=== PATIENT | female | born 1945 | race Caucasian/White ===

== ENCOUNTER 2019-05-08 02:13 | Inpatient (IN) ==
[2019-05-08] MEDS ORDERED: MoRPHine SULFATE 4 MG/ML 1 ML CARP\\VIAL IV STA ×2 (02:20→04:16)
[2019-05-08] MEDS ORDERED: SODIUM CHLORIDE 0.9% 1000ML 1,000 ML IV SCH (02:30)
[2019-05-08] MEDS: ONDANSETRON INJ 2 MG/ML 2 ML VIAL IV STA ×2 (02:35→02:49)
[2019-05-08 02:36] LABS: Basophils # (auto) 0.06 K/uL (0-0.2); Basophils % (auto) 0.6 %; Eosinophils # (auto) 0.23 K/uL (0-0.5); Eosinophils % (auto) 2.2 %; Hematocrit (blood only) 44.1 % (37-47); Hemoglobin 14.6 g/dL (12.0-16.0); Immature Granulocytes # (auto) 0.02 K/uL (0.00-0.02); Immature Granulocytes % (auto) 0.2 %; Lymphocytes # (auto) 1.48 K/uL (1.2-3.4); Mean Corpuscular Hemoglobin 32.2 pg (25-34); Mean Corpuscular Hgb Conc 33.1 g/dL (32-36); Mean Corpuscular Volume 97.4 fL (80-100); Monocytes # (auto) 0.78 K/uL (0.11-0.59); Monocytes % (auto) 7.4 %; Neutrophils # (auto) 8.03 K/uL (1.4-6.5); Neutrophils % (auto) 75.6 %; Platelet Count 315 K/uL (130-400); RDW Coefficient of Variation 13.7 % (11.5-14.5); RDW Standard Deviation 48.5 fL (36.4-46.3); Red Blood Count 4.53 M/uL (4.2-5.4)
[2019-05-08 02:43] LABS: iSTAT Creatinine 0.8 mg/dl (0.6-1.3); iSTAT Hemoglobin 14.6 g/dl (12.0-16.0); iSTAT Ionized Calcium 1.3 mmol/l (1.12-1.32); iSTAT Potassium 3.6 mEq/L (3.3-5.0)
[2019-05-08 02:58] LABS: Albumin Level 3.8 gm/dl (3.4-5.0); BUN Creatinine Ratio 16.4 (10-20); Creatinine Clr Calc Pharmacy 43.2 ml/min; Est GFR (African American) 64.6; Est GFR (Non-African American) 55.7; Potassium 3.7 mmol/L (3.5-5.1)
[2019-05-08 03:00] LABS: Albumin Globulin Ratio 0.9 (0.9-2); Bilirubin,Total 0.4 mg/dl (0.2-1); Globulin 4.1 gm/dl (2.5-4.0); Total Protein 7.9 gm/dl (6.4-8.2)
[2019-05-08] MEDS ORDERED: IOVERSOL 100ml IV PRN (03:06)
--- NOTE | 2019-05-08 03:12 | Emergency Department Note ---
Entered by Brinda Chase acting as a scribe for Elmer Beaver DO History of Present Illness General Chief complaint: Abdominal Pain Stated complaint: ABDOMINAL PAIN History of Present Illness Provider complaint: abdominal pain Onset (ago): hour(s) 7 Location: abdomen Severity: similar to prior episodes Quality: + other (abdominal pain) Associated symptoms: + nausea/vomiting The patient, who is a 73 year old female with a medical history of GI bleeding, kidney stones, and a colectomy, who presents to the Emergency Room with complaints of abdominal pain that started at 1900 last night. The patient states that around 0145 the patient started vomiting. The patient explains that throughout the day she has been excreting clear liquid with some mucous. The patient expresses that she had a similar episode two years ago that resulted into severe ulcerative colitis. The patient states that she had an appendectomy but she still has her gallbladder. Patient notes that the pain started around 7 PM and gradually progressed since then. Pain has been constant. Patient has not had any outputs since this afternoon in the ostomy. Previous surgery was done at [facility]. Home Medications Home Medications Medication Instructions Recorded Confirmed Type aspirin 81 mg tablet,delayed 81 mg PO DAILY 04/19/19 05/08/19 History release omeprazole magnesium 20 mg 20 mg PO DAILY 04/19/19 05/08/19 History tablet,delayed release potassium chloride 10 mEq 10 meq PO 3XWK 04/19/19 05/08/19 History capsule,extended release Arthritis Extra Strength 2 tabs PO BID 05/08/19 05/08/19 History furosemide [Lasix] 20 mg PO DAILY 05/08/19 05/08/19 History prednisone 5 mg PO DAILY 05/08/19 05/08/19 History rosuvastatin 5 mg PO DAILY 05/08/19 05/08/19 History turmeric root extract 1,053 mg PO BID 05/08/19 05/08/19 History Allergies Allergy/AdvReac Type Severity Reaction Status Date / Time Penicillins Allergy Severe Hives Verified 05/08/19 02:44 Cipro Allergy Intermediate SEVERE RASH Verified 01/24/14 12:55 ciprofloxacin Allergy Intermediate SEVERE RASH Verified 05/08/19 02:44 adhesive Allergy Mild Rash Verified 05/08/19 02:44 ondansetron [From Zofran] Allergy Mild Rash Verified 05/08/19 02:45 codeine Allergy Unknown n/v Verified 05/08/19 02:44 pinpoint pupils infliximab Allergy Unknown Unknown Verified 05/08/19 02:44 Quinolones Allergy Unknown Unknown Verified 05/08/19 02:44 tramadol Allergy Unknown bradycardia Verified 05/08/19 02:44 vancomycin Allergy Unknown Maris Verified 04/29/19 12:41 syndrome NONSTEROIDAL Allergy Unknown NAPROXEN Uncoded 04/19/19 12:54 Past Med/Surg History Medical History Herpes zoster Missed Surgical History H/O ileostomy H/O oral surgery H/O ventral hernia repair History of colon surgery S/P appendectomy S/P colonoscopy S/P dilation and curettage S/P tonsillectomy and adenoidectomy S/P tubal ligation Family History Grandmother (Paternal) Breast cancer Grandmother (Maternal) Colorectal cancer Father Rheumatic heart disease Mother Thyroid cancer Social History Feels Safe at Home: Yes Smoking Status: Former smoker Review of Systems See HPI for pertinent positives & negatives. and A total of 10 systems reviewed and were otherwise negative Physical Exam Vital Signs Vital Signs - 24 hr 05/08/19 02:21 05/08/19 02:23 05/08/19 03:14 Temperature 36.6 C Temperature Source Oral Pulse Rate 71 Pulse Rate [Apical] 70 Respiratory Rate 20 18 Respiratory Effort / Characteristics Non-Labored Spontaneous Respiratory Depth Normal Normal Respiratory Pattern Regular Blood Pressure 177/97 H Blood Pressure [Right Arm] 154/93 H Blood Pressure Mean 123 Blood Pressure Mean [Right Arm] 113 Blood Pressure Position Sitting Pulse Oximetry 99 99 99 Oxygen Delivery Method Room Air Room Air Oxygen Flow Rate Sepsis Recent Fever Within 48 Hours No Sepsis New/Unexplained Change in Mental Status No Sepsis Action Taken by Nursing No Action Required Fraction of Inspired Oxygen - Titration Pulse Oximetry Post Tiitration 05/08/19 04:32 05/08/19 06:00 Temperature Temperature Source Pulse Rate Pulse Rate [Apical] 71 71 Respiratory Rate 18 18 Respiratory Effort / Characteristics Respiratory Depth Normal Normal Respiratory Pattern Blood Pressure Blood Pressure [Right Arm] 141/86 H 155/85 H Blood Pressure Mean Blood Pressure Mean [Right Arm] 104 108 Blood Pressure Position Pulse Oximetry 88 L 100 Oxygen Delivery Method Nasal Cannula Nasal Cannula Oxygen Flow Rate 2 2 Sepsis Recent Fever Within 48 Hours Sepsis New/Unexplained Change in Mental Status Sepsis Action Taken by Nursing Fraction of Inspired Oxygen - Titration 2 Pulse Oximetry Post Tiitration 94 GENERAL: sitting in bed, uncomfortable, teary, moderate distress EYE EXAM: normal conjunctiva OROPHARYNX: no exudate, no erythema, lips, buccal mucosa, and tongue normal and mucous membranes are moist NECK: supple, no nuchal rigidity, no adenopathy, non-tender LUNGS: Clear to auscultation. Normal chest wall mechanics HEART: no murmurs, S1 normal and S2 normal ABDOMEN: abdomen distended and firm with ostomy in right lower quadrant, clear size stool in ostomy, tender in right lower quadrant, decreased bowel sounds SKIN: no rashes and no bruising UPPER EXTREMITIES: upper extremities are grossly normal. LOWER EXTREMITIES: No pitting edema. NEURO EXAM: Normal sensorium, cranial nerves II-XII grossly intact, normal speech, no gross weakness of arms, no gross weakness of legs. Course Course ED COURSE: Vital signs were reviewed and showed hypertensive situationally. The patients medical record was reviewed The above diagnostic studies were performed and reviewed. ED treatments and interventions as stated above. 0215: The patient was evaluated in room B2. A complete history and physical examination was performed. 0438: I reviewed the patient's case with Dr. Teixeira, General Surgery. He will evaluate the patient for further management. 0503: I reassessed the patient who was doing well and sleeping. 0558: I reassessed the patient and updated her on the plan of action. The patient expresses that the wanted to go to [place]. 0610: I talked to [facility] and [facility] and was informed that they do not have any availability to admit patient. 0640: Dr. Teixeira has agreed to take the patient to the OR. He states that an NG tube is not needed at this time. Based on the patients age, coexisting illnesses, exam and lab findings the decision to treat as an inpatient was made. The patient remained stable while under my care. The patient will be evaluated for further management. Consultations Consultation #1: I reviewed the patient's case with Dr. Teixeira, General Surgery. He will evaluate the patient for further management. Time: 04:38 Consultation #2: Dr. Teixeira has agreed to take the patient to the OR. He states that an NG tube is not needed at this time. Time: 06:40 Administered Medications Ioversol (Optiray 320 100ml) 100 ml IV ONCE PRN PRN Reason: Interaction Checking Stop: 05/12/19 03:05 Last Admin: 05/08/19 03:06 Dose: 92 ml Documented by: [id number] Discontinued Medications Sodium Chloride (Nss 1000ml) 1,000 mls @ 999 mls/hr IV .Q1H1M JERE Stop: 05/08/19 03:30 Last Infusion: 05/08/19 03:44 Dose: 0 mls/hr Documented by: [id number] Admin: 05/08/19 02:35 Dose: 999 mls/hr Documented by: [id number] Metoclopramide HCl (Reglan) 10 mg IV NOW STA Stop: 05/08/19 04:11 Last Admin: 05/08/19 04:13 Dose: 10 mg Documented by: [id number] Morphine Sulfate (Morphine Sulfate) 4 mg IV NOW STA Stop: 05/08/19 02:21 Last Admin: 05/08/19 02:35 Dose: 4 mg Documented by: [id number] Morphine Sulfate (Morphine Sulfate) 4 mg IV NOW STA Stop: 05/08/19 04:17 Last Admin: 05/08/19 04:20 Dose: 4 mg Documented by: [id number] Ondansetron HCl (Zofran) 4 mg IV NOW STA Stop: 05/08/19 02:21 Last Admin: 05/08/19 02:49 Dose: Not Given Documented by: [id number] Critical Care Time Critical Care Time: Yes Total Critical Care Time: 31 I have personally spent 31 minutes of critical care time in the direct management of this patient. This includes bedside care, interpretation of diagnostic studies, and testing, discussion with consultants, patient, and family members, and other required patient management activities. This 31 minutes is in excess of all separately billable procedures. Medical Decision Making Differential Diagnosis Differential diagnoses includes but is not limited to gastritis, peptic ulcer disease, GERD, gallbladder disease, pancreatitis, small bowel obstruction, acute coronary syndrome, pericarditis, ischemic bowel, irritable bowel disease, irritable bowel syndrome, appendicitis, diverticulitis, malignancy, hernia, urinary tract infection, torsion, /ectopic (if female), perforation, trauma, infectious. Medical Records Attestation: I reviewed the patient's medical records. Home Medications Current Medication List: was personally reviewed by me Laboratory Data Result diagrams: 05/08/19 02:25 05/08/19 02:25 Lab Results 05/08/19 05/08/19 05/08/19 Range/Units 02:25 02:25 02:27 WBC 10.60 (4.8-10.8) K/uL RBC 4.53 (4.2-5.4) M/uL Hgb 14.6 (12.0-16.0) g/dL POC Hgb 14.6 (12.0-16.0) g/dl Hct 44.1 (37-47) % POC Hct 43 (37-47) % MCV 97.4 (80-100) fL MCH 32.2 (25-34) pg MCHC 33.1 (32-36) g/dL RDW Std Deviation 48.5 H (36.4-46.3) fL RDW Coeff of Deandre 13.7 (11.5-14.5) % Plt Count 315 (130-400) K/uL MPV 10.0 (7.4-10.4) fL Immature Gran % (Auto) 0.2 % Neut % (Auto) 75.6 % Lymph % (Auto) 14.0 % King % (Auto) 7.4 % Eos % (Auto) 2.2 % Baso % (Auto) 0.6 % Immature Gran # (Auto) 0.02 (0.00-0.02) K/uL Neut # (Auto) 8.03 H (1.4-6.5) K/uL Lymph # (Auto) 1.48 (1.2-3.4) K/uL King # (Auto) 0.78 H (0.11-0.59) K/uL Eos # (Auto) 0.23 (0-0.5) K/uL Baso # (Auto) 0.06 (0-0.2) K/uL POC Sodium 141 (135-144) mEq/L Sodium 141 (136-145) mmol/L POC Potassium 3.6 (3.3-5.0) mEq/L Potassium 3.7 (3.5-5.1) mmol/L POC Chloride 103 (101-112) mEq/L Chloride 105 (98-107) mmol/L Carbon Dioxide 31 (21-32) mmol/L POC Total CO2 27 (24-31) mEq/l Anion Gap 5.0 (3-11) POC Anion Gap 15.0 L (16-25) mmol/L POC BUN 17 (7-18) mg/dl BUN 16 (7-18) mg/dl Creatinine 0.99 (0.6-1.2) mg/dl POC Creatinine 0.8 (0.6-1.3) mg/dl Est Cr Clr Drug Dosing 43.2 ml/min Est GFR ( Amer) 64.6 Est GFR (Non-Af Amer) 55.7 BUN/Creatinine Ratio 16.4 (10-20) Glucose 92 (70-99) mg/dl POC Glucose (other) 94 (70-99) mg/dl Calcium 10.0 (8.5-10.1) mg/dl POC Ioniz Calcium Ryan 1.30 (1.12-1.32) mmol/l Total Bilirubin 0.4 (0.2-1) mg/dl AST 21 (15-37) U/L ALT 23 (12-78) U/L Alkaline Phosphatase 57 (45-117) U/L Total Protein 7.9 (6.4-8.2) gm/dl Albumin 3.8 (3.4-5.0) gm/dl Globulin 4.1 H (2.5-4.0) gm/dl Albumin/Globulin Ratio 0.9 (0.9-2) Lipase 177 (73-393) U/L Imaging Data Radiologist's Impression: Radiology results as stated below per my review and the radiologist's interpretation: CT ABDOMEN & PELVIS With Contrast: Status post colectomy with a right lower quadrant ileostomy. There is a high- grade small bowel obstruction the transition point of which is within the parastomal hernia which contains multiple dilated loops of small bowel. These bowels loops are at risk for strangulation. No pneumatosis, portal venous gas, or free air at this time. Radiologist: Pawan Reed MD Study ready at 03:12 and initial results transmitted at 04:20 Blood Pressure Blood Pressure Findings: Elevated blood pressure Blood Pressure Disposition: further management by hospitalist ASHLEY Narrative Patient is a 73-year-old female who presents the ER for severe right-sided abdominal pain. This started around 7 PM and the vomiting started around 2 PM. She has a history of bowel resection with an ostomy secondary to severe UC. Previous appendectomy as well. Surgery was done at [facility]. IV was established blood work was obtained. Patient was hypertensive with systolics in the 170s. Labs show no significant leukocytosis or anemia. BMP along with LFTs bilirubin and lipase was unremarkable. I patient was given IV fluids, IV Zofran and IV narcotics. She had no vomiting while in the ER. CT abdomen pelvis shows high-grade small bowel obstruction in the parastomal. General surgery was consulted and evaluated the patient at bedside. Attempted to transfer to her [facility] and then [facility] and these facilities are both completely fill. At this time the decision was made to take the patient to the OR to reduce the hernia and bowel obstruction. Patient rested comfortably in the ER. Held on NG per GEN surg. Patient was updated throughout the course in the ER and admitted and taken to the ER. Impression & Plan SBO (small bowel obstruction), Vomiting, Abdominal pain Discharge Plan Visit Data Chief Complaint: Abdominal Pain Stated Complaint: ABDOMINAL PAIN ED Provider: Elmer Beaver Discharge Problem: SBO (small bowel obstruction), Vomiting, Abdominal pain Forms Stand Alone Forms: Call Back Authorization, [facility] Prescriptions Prescriptions: No Action aspirin [Adult Low Dose Aspirin] 81 mg tablet,delayed release (DR/EC) 81 mg PO DAILY RF: 0 potassium chloride 10 mEq capsule, extended release 10 meq PO 3XWK RF: 0 Prilosec OTC 20 mg tablet,delayed release (DR/EC) 20 mg PO DAILY RF: 0 furosemide [Lasix] 20 mg Tablet 20 mg PO DAILY RF: 0 prednisone 5 mg Tablet 5 mg PO DAILY RF: 0 rosuvastatin 5 mg Tablet 5 mg PO DAILY RF: 0 turmeric root extract 1,053 mg Tablet 1,053 mg PO BID RF: 0 Arthritis Extra Strength 2 tabs PO BID RF: 0 Discharge Problem: Vomiting Qualifiers: Vomiting type: unspecified Vomiting Intractability: unspecified Nausea presence: unspecified Qualified Code(s): R11.10 - Vomiting, unspecified Abdominal pain Qualifiers: Abdominal location: left lower quadrant Qualified Code(s): R10.32 - Left lower quadrant pain The scribe's documentation has been prepared under my direction and personally reviewed by me in its entirety. I confirm that the note above accurately reflects all work, treatment, procedures, and medical decision making performed by me.
[2019-05-08] MEDS ORDERED: METOCLOPRAMIDE HCL INJ 5 MG/ML 2 ML VIAL IV STA (04:10)
[2019-05-08] MEDS ORDERED: CLINDAMYCIN 900 MG in DEXTROSE 5% 50 ML IV SCH (06:00)
--- NOTE | 2019-05-08 06:41 | CT Scan Report ---
CT abd pelvis IV con only CLINICAL HISTORY: Abdominal pain. History of small bowel obstruction. COMPARISON STUDY: December 2007 TECHNIQUE: The patient was scanned in a dynamic helical fashion during intravenous administration of 92 cc of Optiray 320. A dose lowering technique was utilized adhering to the principles of ALARA. CT DOSE: 555.82 mGy.cm FINDINGS: Lower chest: The heart is normal in size and configuration, without pericardial effusion. The lung ba ses and pleural spaces are clear. Liver: There is a 15 mm left lobe hepatic cyst. There is a second 8 mm left lobe hypodensity likely r epresenting an additional cyst. Gallbladder: Suspected cholelithiasis Spleen: Normal in size and attenuation. Pancreas: Unremarkable. Adrenal glands: Unremarkable. Kidneys: There is symmetric renal cortical enhancement. The kidneys are normal in size without hydron ephrosis. Bowel: There are postsurgical changes of a subtotal colectomy. There is a right-sided ileostomy with a parastomal hernia. There are dilated fluid-filled bowel loops. There is a small bowel feces sign. T here is mild edema surrounding the parastomal hernia, and there is trace fluid within the parastomal hernia. There appears to be a transition zone at the neck of the ostomy. Peritoneum: There is no free air. There is trace fluid within the patient's parastomal hernia Vasculature: The abdominal aorta is normal in course and caliber. Adenopathy: None. Pelvic viscera: The bladder, and pelvic viscera are unremarkable. Skeletal structures: No destructive osseous lesions are seen. IMPRESSION: 1. Postsurgical changes are prior subtotal colectomy 2. CT findings suggestive of a distal small bowel obstruction with a transition zone at the level of a right lower quadrant ileostomy with a parastomal hernia. There is minor bowel wall thickening of th e loops within the hernia sac and there is trace adjacent peritoneal fluid. Electronically signed by: German Lee M.D. 05/08/2019 6:40 AM
--- NOTE | 2019-05-08 06:50 | History & Physical Report ---
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 She requested tertiary care center and we contacted [facility] [place] but there is no bed availability at either facility. We are going to proceed with exploratory laparotomy with reduction and repair of parastomal hernia. I discussed with her the possible complications and answered her questions. She has signed a consent form. History of Present Illness Chief Complaint: Parastomal abdominal pain with nausea and vomiting Primary Care Provider: Derrick Ruiz DO This is a 73-year-old female who is status post total abdominal colectomy in 2005 for severe ulcerative colitis and is also status post exploratory laparotomy with lysis of adhesions for a bowel obstruction in 2007 who developed abdominal discomfort last night at 7 PM. The patient states that her ileostomy had not been putting out much during the day but that would occasionally happen depending on what she ate. She then developed discomfort around the peristomal region and had multiple episodes of vomiting. She presented to the emergency room. She was fairly comfortable upon my arrival but that was there receiving IV analgesia. She had a colonoscopy last year for surveillance of her rectal pouch and stated that there were no issues identified. She stated that she would get sweats since the pain started but does not think she had fever. She has had no difficulty passing her urine. Allergies Allergy/AdvReac Type Severity Reaction Status Date / Time Penicillins Allergy Severe Hives Verified 05/08/19 02:44 Cipro Allergy Intermediate SEVERE RASH Verified 01/24/14 12:55 ciprofloxacin Allergy Intermediate SEVERE RASH Verified 05/08/19 02:44 adhesive Allergy Mild Rash Verified 05/08/19 02:44 ondansetron [From Zofran] Allergy Mild Rash Verified 05/08/19 02:45 codeine Allergy Unknown n/v Verified 05/08/19 02:44 pinpoint pupils infliximab Allergy Unknown Unknown Verified 05/08/19 02:44 Quinolones Allergy Unknown Unknown Verified 05/08/19 02:44 tramadol Allergy Unknown bradycardia Verified 05/08/19 02:44 vancomycin Allergy Unknown Maris Verified 04/29/19 12:41 syndrome NONSTEROIDAL Allergy Unknown NAPROXEN Uncoded 04/19/19 12:54 Home Medications Home Medications Medication Instructions Recorded Confirmed Type aspirin 81 mg tablet,delayed 81 mg PO DAILY 04/19/19 05/08/19 History release omeprazole magnesium 20 mg 20 mg PO DAILY 04/19/19 05/08/19 History tablet,delayed release potassium chloride 10 mEq 10 meq PO 3XWK 04/19/19 05/08/19 History capsule,extended release Arthritis Extra Strength 2 tabs PO BID 05/08/19 05/08/19 History furosemide [Lasix] 20 mg PO DAILY 05/08/19 05/08/19 History prednisone 5 mg PO DAILY 05/08/19 05/08/19 History rosuvastatin 5 mg PO DAILY 05/08/19 05/08/19 History turmeric root extract 1,053 mg PO BID 05/08/19 05/08/19 History Past Med/Surg History Medical History Herpes zoster Missed Surgical History H/O ileostomy H/O oral surgery H/O ventral hernia repair History of colon surgery S/P appendectomy S/P colonoscopy S/P dilation and curettage S/P tonsillectomy and adenoidectomy S/P tubal ligation Family History Grandmother (Paternal) Breast cancer Grandmother (Maternal) Colorectal cancer Father Rheumatic heart disease Mother Thyroid cancer Social History Feels Safe at Home: Yes Smoking Status: Former smoker Review of Systems Review of Systems: All systems reviewed & are unremarkable except as noted in HPI & below Physical Exam Constitutional: no acute distress Neck: trachea midline Respiratory: normal respiratory effort, lungs clear to auscultation Cardiovascular: Rate/Rhythm: regular rate and regular rhythm Gastrointestinal (Abdomen): Inspection/Auscultation: abdomen not distended Percussion/Palpation: + abdomen tender (In the area of parastomal hernia) and abdomen soft Has parastomal hernia that cannot be reduced with tenderness Skin: no rashes, warm and dry Lymphatic: no cervical lymphadenopathy Results & Data Vital Signs (Past 12 Hours) Vital Signs Temp Pulse Pulse Resp BP BP Pulse Ox 05/08/19 06:00 71 18 155/85 H 100 05/08/19 04:32 71 18 141/86 H 88 L 05/08/19 03:14 70 18 154/93 H 99 05/08/19 02:23 36.6 C 71 20 177/97 H 99 05/08/19 02:21 99 Laboratory Results 05/08/19 05/08/19 05/08/19 Range/Units 02:27 02:25 02:25 WBC 10.60 (4.8-10.8) K/uL RBC 4.53 (4.2-5.4) M/uL Hgb 14.6 (12.0-16.0) g/dL POC Hgb 14.6 (12.0-16.0) g/dl Hct 44.1 (37-47) % POC Hct 43 (37-47) % MCV 97.4 (80-100) fL MCH 32.2 (25-34) pg MCHC 33.1 (32-36) g/dL RDW Std Deviation 48.5 H (36.4-46.3) fL RDW Coeff of Deandre 13.7 (11.5-14.5) % Plt Count 315 (130-400) K/uL MPV 10.0 (7.4-10.4) fL Immature Gran % (Auto) 0.2 % Neut % (Auto) 75.6 % Lymph % (Auto) 14.0 % Jennings % (Auto) 7.4 % Eos % (Auto) 2.2 % Baso % (Auto) 0.6 % Immature Gran # (Auto) 0.02 (0.00-0.02) K/uL Neut # (Auto) 8.03 H (1.4-6.5) K/uL Lymph # (Auto) 1.48 (1.2-3.4) K/uL Jennings # (Auto) 0.78 H (0.11-0.59) K/uL Eos # (Auto) 0.23 (0-0.5) K/uL Baso # (Auto) 0.06 (0-0.2) K/uL POC Sodium 141 (135-144) mEq/L Sodium 141 (136-145) mmol/L POC Potassium 3.6 (3.3-5.0) mEq/L Potassium 3.7 (3.5-5.1) mmol/L POC Chloride 103 (101-112) mEq/L Chloride 105 (98-107) mmol/L Carbon Dioxide 31 (21-32) mmol/L POC Total CO2 27 (24-31) mEq/l Anion Gap 5.0 (3-11) POC Anion Gap 15.0 L (16-25) mmol/L POC BUN 17 (7-18) mg/dl BUN 16 (7-18) mg/dl Creatinine 0.99 (0.6-1.2) mg/dl POC Creatinine 0.8 (0.6-1.3) mg/dl Est Cr Clr Drug Dosing 43.2 ml/min Est GFR ( Amer) 64.6 Est GFR (Non-Af Amer) 55.7 BUN/Creatinine Ratio 16.4 (10-20) Glucose 92 (70-99) mg/dl POC Glucose (other) 94 (70-99) mg/dl Calcium 10.0 (8.5-10.1) mg/dl POC Ioniz Calcium Ryan 1.30 (1.12-1.32) mmol/l Total Bilirubin 0.4 (0.2-1) mg/dl AST 21 (15-37) U/L ALT 23 (12-78) U/L Alkaline Phosphatase 57 (45-117) U/L Total Protein 7.9 (6.4-8.2) gm/dl Albumin 3.8 (3.4-5.0) gm/dl Globulin 4.1 H (2.5-4.0) gm/dl Albumin/Globulin Ratio 0.9 (0.9-2) Lipase 177 (73-393) U/L Diagnostic Findings CT scan of the abdomen and pelvis demonstrates loops of dilated small bowel in the parastomal hernia as the site of high-grade obstruction
[2019-05-08] MEDS ORDERED: PROMETHAZINE HCL 12.5 MG in SODIUM CHLORIDE 0.9% 50 ML IV STA (07:09)
[2019-05-08] MEDS ORDERED: PROMETHAZINE 12.5 MG/50.5 ML NSS IV ONE (07:16)
[2019-05-08] MEDS ORDERED: fentaNYL citrate 100 MCG/2 ML VIAL ONE ×2 (07:31→11:16)
[2019-05-08] MEDS ORDERED: PROPOFOL IV EMULSION 10 MG/ML 20 ML VIAL IV ONE (07:31)
[2019-05-08] MEDS ORDERED: GLYCOPYRROLATE 0.2 MG/ML VIAL ONE (07:31)
[2019-05-08] MEDS ORDERED: MIDAZOLAM HCL 1 MG/ML 2ML VIAL ONE (07:31)
[2019-05-08] MEDS ORDERED: DEXAMETHASONE SOD INJ 4 MG/ML VIAL ONE (07:31)
[2019-05-08] MEDS ORDERED: ONDANSETRON INJ 2 MG/ML 2 ML VIAL ONE (07:31)
[2019-05-08] MEDS ORDERED: LIDOCAINE HCL 2% 2 ML VIAL/AMP(20MG/ML) INFIL ONE (07:31)
[2019-05-08] MEDS ORDERED: NEOSTIGMINE METHYLSULFATE 5 MG/5 ML SYR ONE (07:31)
[2019-05-08] MEDS ORDERED: ATROPINE SULFATE 0.1 MG/ML 10ML SYR IV PRN (07:57)
[2019-05-08] MEDS ORDERED: fentaNYL citrate 100 MCG/2 ML VIAL IV PRN (07:57)
[2019-05-08] MEDS ORDERED: ePHEDrine sulfate 50 MG/ML AMP IV PRN (07:57)
--- NOTE | 2019-05-08 08:08 | Anesthesiology Consultation ---
Date of Service May 08, 2019 Assessment & Plan (1) Polymyalgia rheumatica: Chart Review Chart Review: Acceptable Risk for Surgery Consults Requested none ASA [id number] Proposed Anesthesia Anesthesia Type: General Risk / Benefits Reviewed With: PT / POA / Parent / Guardian, Accepts Plan and Informed Consent Obtained History Surgery Operation Date: 05/08/19 11:10 Proposed Procedures p Reduction and Repair Incarcerated Parastomal Hernia - Frantz Teixeira MD Height/Weight Height: 5 ft Weight: 71.1 kg Allergies Allergy/AdvReac Type Severity Reaction Status Date / Time Penicillins Allergy Severe Hives Verified 05/08/19 02:44 Cipro Allergy Intermediate SEVERE RASH Verified 01/24/14 12:55 ciprofloxacin Allergy Intermediate SEVERE RASH Verified 05/08/19 02:44 adhesive Allergy Mild Rash Verified 05/08/19 02:44 ondansetron [From Zofran] Allergy Mild Rash Verified 05/08/19 02:45 codeine Allergy Unknown n/v Verified 05/08/19 02:44 pinpoint pupils infliximab Allergy Unknown Unknown Verified 05/08/19 02:44 Quinolones Allergy Unknown Unknown Verified 05/08/19 02:44 tramadol Allergy Unknown bradycardia Verified 05/08/19 02:44 vancomycin Allergy Unknown Maris Verified 04/29/19 12:41 syndrome NONSTEROIDAL Allergy Unknown NAPROXEN Uncoded 04/19/19 12:54 Medications Home Medications Medication Instructions Recorded Confirmed Last Taken aspirin 81 mg tablet,delayed 81 mg PO DAILY 04/19/19 05/08/19 Unknown release omeprazole magnesium 20 mg 20 mg PO DAILY 04/19/19 05/08/19 Unknown tablet,delayed release potassium chloride 10 mEq 10 meq PO 3XWK 04/19/19 05/08/19 Unknown capsule,extended release Arthritis Extra Strength 2 tabs PO BID 05/08/19 05/08/19 Unknown furosemide [Lasix] 20 mg PO DAILY 05/08/19 05/08/19 Unknown prednisone 5 mg PO DAILY 05/08/19 05/08/19 Unknown rosuvastatin 5 mg PO DAILY 05/08/19 05/08/19 Unknown turmeric root extract 1,053 mg PO BID 05/08/19 05/08/19 Unknown Active Medications Generic Name Dose Route Start Last Admin Trade Name Freq PRN Reason Stop Dose Admin Ioversol 100 ml 05/08/19 03:06 05/08/19 03:06 Optiray 320 100ml IV 05/12/19 03:05 92 ml ONCE PRN Administration Interaction Checking NPO Date Last Intake of Fluids: 05/08/19 Time Last Intake of Fluids: 19:30 Date Last Intake of Solids: 05/08/19 Time Last Intake of Solids: 19:30 Past Medical History Medical History (Updated 05/08/19 @ 08:06 by Gabe Biswas DO) Herpes zoster Missed Exercise / Class Metabolic Activity II 4-5 Yardwork/Stairs/Walk up hill Past Family History Family History Grandmother (Paternal) Breast cancer Grandmother (Maternal) Colorectal cancer Father Rheumatic heart disease Mother Thyroid cancer Past Surgical History Surgical History H/O ileostomy H/O oral surgery H/O ventral hernia repair History of colon surgery S/P appendectomy S/P colonoscopy S/P dilation and curettage S/P tonsillectomy and adenoidectomy S/P tubal ligation Past Anesthesia History No Hx of Anesthesia Complications and No Family Hx of Anesthesia Complications History of PONV No Hx of PONV and No Hx of Motion Sickness Social History Smoking Status: Former smoker Hx Alcohol Use: No Hx Substance Use: No Physical Exam Vital Signs Last Vital Signs Temp 98.2 F 05/08/19 07:49 Pulse 69 05/08/19 07:49 Resp 18 05/08/19 07:49 BP 129/78 05/08/19 07:49 Pulse Ox 95 05/08/19 07:49 ENMT Mouth: no dentition abnormality Thyromental Distance: > or= 3.5 Finger Breadths Mallampati Class: III Neck normal visual inspection Respiratory normal respiratory effort Auscultation: lungs clear to auscultation bilaterally Cardiovascular Rate/Rhythm: regular rate and regular rhythm Testing Laboratory Results 05/08/19 02:25 05/08/19 02:25 05/08/19 02:27 POC Glucose (other) 94 Electrocardiogram Date: 05/08/19 Findings: + NSR @ (71 bpm) Left axis deviation Low voltage QRS Possible anterolateral infarct
[2019-05-08] MEDS ORDERED: SUCCINYLCHOLINE 100MG/5ML SYR ONE (09:21)
[2019-05-08] MEDS ORDERED: HYDROmorphone INJ 2 MG/ML SYR/VIAL ONE (11:17)
[2019-05-08] MEDS ORDERED: SUGAMMADEX SODIUM 200 MG/2 ML VIAL IV ONE (11:30)
[2019-05-08] MEDS ORDERED: BUPIVACAINE 0.5 % 5 MG/1 ML MPF 30ML VIAL ONE (11:45)
--- NOTE | 2019-05-08 12:04 | Post Operative Brief Note ---
Immediate Post Op Note v1 Date of Surgery May 08, 2019 Pre & Post Diagnosis Operation Date: 05/08/19 11:10 Pre-Op Diagnosis: Small bowel obstruction Post-Op Diagnosis: Small bowel obstruction I identified the patient and participated in the time-out.: Yes Procedure Operation Date: 05/08/19 11:10 Actual Procedures p Reduction and Repair Incarcerated Parastomal Hernia(Not Applicable) - Frantz Teixeira MD Surgeon Frantz Teixeira MD Dialysis Tech Sofi Forman PA-C Estimated Blood Loss 20 Findings Consistent with Post-Op Diagnosis Drains Cordero Catheter Anesthesia Type General Complications none
--- NOTE | 2019-05-08 12:55 | XRay Report ---
XR KUB/Abdomen 1 view CLINICAL HISTORY: 73 years-old Female presenting with NG placement. TECHNIQUE: Single supine view of the abdomen was obtained. COMPARISON: CT from 05/08/2019 and plain radiograph from 01/19/2014. FINDINGS: Mild gaseous distention of the stomach with suggestion of mild gastric wall thickening. This was not present on the CT and is likely artifactual. Few gaseous distended loops of bowel in the right lower quadrant. Surgical clips also project over the right mid abdomen. No gross pneumoperitoneum. Skin sta ples are now in place in the lower abdomen indicating laparotomy. Allowing for bowel gas and stool, no calcifications to suggest nephrolithiasis. Degenerative changes of the spine. Left basilar opacity and possible trace left pleural effusion. IMPRESSION: 1. Postsurgical changes of interval laparotomy, which occurred today since the prior CT scan this mo rning. 2. Gaseous distended loops of bowel in the right mid abdomen could represent ileus. Radiographic fol low-up is advised. Electronically signed by: Dwaine Hermosillo M.D. 05/08/2019 12:53 PM
--- NOTE | 2019-05-08 12:58 | Operative Report ---
DATE OF OPERATION: 05/08/2019 PREOPERATIVE DIAGNOSIS: Incarcerated parastomal hernia. POSTOPERATIVE DIAGNOSIS: Incarcerated parastomal hernia. PROCEDURE: Repair of parastomal incarcerated hernia. SURGEON: Frantz Teixeira MD. REVENUE STAMP CUTTER: Sofi Forman PA-C. FINDINGS: The patient had a parastomal hernia that was not reducible. There was one section of bowel that was exiting the abdomen through the stoma site. There was not a second loop of bowel that was within the hernia sac; however, I could feel into the hernia sac and there was bowel up within the sac. After complete dissection, it was clear that the bowel that was leading to the hernia penetrating through the abdominal wall had gone up into the hernia sac creating an obstruction. The bowel appeared normal. There was no evidence of ischemia. There were no other hernia defects identified. TECHNIQUE: The patient was given a general anesthetic and the area was prepped and draped in the usual sterile fashion. Vertical midline incision was made from below the umbilicus down towards the pelvis. I had to extend that up to the left of the umbilicus in order to obtain adequate exposure. This was dissected then by dividing the subcutaneous tissue through the scar tissue down to where the fascia could be identified. There were Prolene sutures that were present and these were cut and removed. I then carefully dissected through the fascia until the peritoneum could be identified. I carefully opened the peritoneum. There were adhesions of the small bowel on the inner surface of the peritoneum. The majority of these were flimsy and able to be taken down using blunt dissection. However, some of them were thicker and required sharp dissection. At no time did I enter the bowel. There were no enterotomies identified. I cleared the anterior abdominal wall of adhesions towards the left side first. This was again done with blunt and sharp dissection where appropriate. That allowed me then to identify adhesions to the anterior abdominal wall on the right side of the abdomen between the incision and the ostomy site. These were taken down. I then worked inferior to the loop of bowel that was exiting through the abdominal wall and freed the inferior surface. That then identified the bowel wall and allowed me to identify the adhesive surface of a quite thick adhesion on the upper portion of that loop extending through the wall. This was then able to be carefully and safely divided to free that portion. I then worked towards the superior portion of the right side of the abdominal wall and divided adhesions there and was eventually able to clear all the adhesions around, such that I could get my fingers around the entire ostomy. At that point, it was clear that there was only one segment of bowel exiting the abdomen. However, in thinking that maybe it had reduced, I could still feel the lump from the outside indicating that the bowel had not been reduced. I then dissected the loop of bowel away from the peritoneum at the exit site and then was able to gently with inward traction reduced the bowel that was out. It was then clear that that bowel had telescoped out into the hernia sac and that there was not a separate loop of bowel involved in the hernia. The opening in the fascia measured approximately 5 cm. I then freed any adhesions of that bowel to the inner portion of the hernia sac. We placed a red rubber catheter through the ostomy. We had done that in trying to identify the loop coming through, which initially was not able to, but now the red rubber entered and passed for at least 12 inches into the ostomy. The ostomy was then recovered. On the right side of the abdomen, it was easy to establish a plane between the peritoneum inferiorly and the posterior rectus sheath superiorly and the overlying rectus muscle. I then decided to perform a preperitoneal retrorectus mesh repair. I established that plane to the left and to the right and then lateral to where the hernia was extending. That was for at least 3 cm laterally. I then established a similar plane on the left side of the abdomen and connected the dissection superiorly and inferiorly such that I had a well-established preperitoneal space with 5 cm of underlie towards the left, 4 cm superiorly and inferiorly, and then there was approximately 3 cm between the fascial opening medially, the medial aspect of the hernia defect and then 3 cm from the lateral aspect of the hernia defect. I then decided to snug the hernia defect with interrupted Prolene sutures such that the small bowel exited without stricture. I then closed the posterior sheath peritoneal layer using sequential running sutures of 2-0 Vicryl. I then used initially a 20 x 20 cm piece of OviTex that was then cut to 15 x 18 cm after being rehydrated appropriately. The OviTex was then placed in the preperitoneal space. A keyhole was created and there was no pressure or stricturing on the small bowel. The OviTex was secured to the undersurface of the fascia using 0 PDS suture. The mesh was felt to be lying nicely and there was very little kinking. The fascia was then closed with a running #1 PDS after being sure to investigate for any bleeding and none was seen. The subcutaneous tissue was irrigated and the skin was closed with page. The estimated blood loss was 20 mL. Sponge, needle and instrument counts were correct prior to closure. The patient tolerated the surgical procedure without complication and was transferred to recovery. I attest to the content of the Intraoperative Record and any orders documented therein. Any exception s are noted below.
--- NOTE | 2019-05-08 13:14 | Anesthesiology Progress Note ---
Date of Service May 08, 2019 Anesthesia Post Procedure Vital Signs Vital Signs: Temp Pulse Pulse Resp BP BP Pulse Ox 05/08/19 13:05 96 H 16 125/89 94 05/08/19 12:55 94 H 18 127/74 99 05/08/19 12:45 103 H 19 114/75 94 05/08/19 12:35 98 H 13 115/68 94 05/08/19 12:25 104 H 14 113/75 96 05/08/19 12:15 96.8 F L 103 H 12 116/72 94 05/08/19 07:49 98.2 F 69 18 129/78 95 05/08/19 07:01 69 16 93 05/08/19 07:00 67 19 131/73 05/08/19 06:31 82 19 148/107 H 98 05/08/19 06:30 85 23 97 05/08/19 06:01 73 26 H 100 05/08/19 06:00 74 71 13 155/85 H 155/85 H 99 05/08/19 05:31 72 17 99 05/08/19 05:30 71 15 133/77 99 05/08/19 05:01 75 15 99 05/08/19 05:00 78 15 134/80 99 05/08/19 04:32 71 18 141/86 H 88 L 05/08/19 04:31 79 16 141/86 H 93 05/08/19 04:30 75 11 L 05/08/19 04:00 73 11 L 95 05/08/19 03:30 73 18 94 05/08/19 03:14 70 18 154/93 H 99 05/08/19 03:08 72 19 154/93 H 99 05/08/19 03:07 71 22 05/08/19 02:44 78 15 98 05/08/19 02:23 97.9 F 71 20 177/97 H 99 05/08/19 02:21 99 05/08/19 02:17 79 15 177/92 H 98 Pain Intensity Abdomen: Pain Intensity: 0 Transfer of Care Handoff Completed per policy Notes Mental Status: alert / awake / arousable and participated in evaluation Patient Amnestic to Procedure: Yes Nausea / Vomiting: adequately controlled Pain: adequately controlled Airway Patency, RR, SpO2: stable & adequate BP & HR: stable & adequate Hydration State: stable & adequate Anesthetic Complications: no major complications apparent and Pt Satisfied with anesthetic care
[2019-05-08] MEDS ORDERED: PROMETHAZINE HCL 12.5 MG in SODIUM CHLORIDE 0.9% 50 ML IV PRN (13:43)
[2019-05-08] MEDS: ALUMINUM/MAGNESIUM SUSP 30 ML UDC NG SCH ×2 (13:59→20:38)
[2019-05-08] MEDS: MoRPHine SULFATE 4 MG/ML 1 ML CARP\\VIAL IV PRN (17:49)
[2019-05-08] MEDS: LACTATED RINGER'S 1,000 ML IV SCH ×2 (20:37→23:56)
[2019-05-08] MEDS: ACETAMINOPHEN 1,000 MG/100 ML VIAL IV PRN (20:37)
[2019-05-08 22:40] LABS: Appearance Urine Clear (Clear); Bacteria Urine Automated Negative (Negative); Bilirubin Urine Negative (Negative); Blood Urine 3+ (Negative); Color Urine Dark Yellow; Epithelial Cell Urine Auto >30 /lpf (0-5); Glucose Urine UA Negative (Negative); Ketones Urine Trace (Negative); Leukocyte Esterase Urine Negative (Negative); Nitrite Urine Negative (Negative); Protein Urine 1+ (Negative); RBC Urine Automated >30 /hpf (0-4); Specific Gravity Urine 1.029 (1.000-1.030); Urobilinogen Urine Negative (Negative)
[2019-05-09] MEDS: ALUMINUM/MAGNESIUM SUSP 30 ML UDC NG SCH (02:11)
[2019-05-09] MEDS: MoRPHine SULFATE 4 MG/ML 1 ML CARP\\VIAL IV PRN ×3 (05:36→14:38)
[2019-05-09] MEDS ORDERED: CLINDAMYCIN PHOS 900 MG/6 ML VIAL IV SCH (06:00)
--- NOTE | 2019-05-09 07:32 | Surgery Progress Note ---
Date of Service May 09, 2019 Assessment & Plan (1) Parastomal hernia with obstruction and without gangrene: Postoperative day #1 status post repair of parastomal hernia Stable Out of bed today Urine output is good Small amount of function from ostomy Begin sips of clear liquids Present on Admission?: Yes Subjective Postoperative day #1, status post reduction repair of parastomal hernia Feels well Pain controlled with Tylenol No nausea or vomiting Urine output is good Small amount from ostomy Physical Exam Gastrointestinal (Abdomen): Inspection/Auscultation: + abdomen distended (Mild), normal bowel sounds and + abdominal surgical incision (Clean, dry and intact) Percussion/Palpation: + abdomen tender (Incisional only) and abdomen soft Results & Data Vital Signs (Past 12 Hours) Vital Signs Temp Pulse Resp BP BP Pulse Ox Pulse Ox 05/09/19 07:14 37.3 C 99 H 18 129/81 93 05/09/19 04:45 37.4 C 96 H 16 135/80 97 05/08/19 23:30 95 05/08/19 23:10 37.2 C 99 H 16 101/63 95 05/08/19 21:00 37.2 C 94 05/08/19 20:36 88 L 05/08/19 19:54 37.9 C H 05/08/19 19:43 38.3 C H 110 H 16 126/75 90
--- NOTE | 2019-05-09 08:11 | Anesthesiology Progress Note ---
Date of Service May 09, 2019 Anesthesia Post Procedure Vital Signs Vital Signs: Temp Pulse Pulse Resp BP BP Pulse Ox 05/09/19 07:14 37.3 C 99 H 18 129/81 93 05/09/19 04:45 37.4 C 96 H 16 135/80 97 05/08/19 23:30 05/08/19 23:10 37.2 C 99 H 16 101/63 95 05/08/19 21:00 37.2 C 94 05/08/19 20:36 88 L 05/08/19 19:54 37.9 C H 05/08/19 19:43 38.3 C H 110 H 16 126/75 90 05/08/19 16:25 36.5 C 98 H 16 132/83 96 05/08/19 15:36 36.4 C L 91 H 14 122/76 98 05/08/19 14:35 36.5 C 95 H 20 136/80 96 05/08/19 14:05 36.6 C 95 H 18 126/82 97 05/08/19 13:25 36.6 C 97 H 16 128/81 97 05/08/19 13:15 95 H 17 141/79 H 94 05/08/19 13:05 96 H 16 125/89 94 05/08/19 12:55 94 H 18 127/74 99 05/08/19 12:45 103 H 19 114/75 94 05/08/19 12:35 98 H 13 115/68 94 05/08/19 12:25 104 H 14 113/75 96 05/08/19 12:15 36.0 C L 103 H 12 116/72 94 Pulse Ox 05/09/19 07:14 05/09/19 04:45 05/08/19 23:30 95 05/08/19 23:10 05/08/19 21:00 05/08/19 20:36 05/08/19 19:54 05/08/19 19:43 05/08/19 16:25 05/08/19 15:36 05/08/19 14:35 05/08/19 14:05 05/08/19 13:25 05/08/19 13:15 05/08/19 13:05 05/08/19 12:55 05/08/19 12:45 05/08/19 12:35 05/08/19 12:25 05/08/19 12:15 Pain Intensity Abdomen: Pain Intensity: 0 Notes Mental Status: alert / awake / arousable and participated in evaluation Patient Amnestic to Procedure: Yes Nausea / Vomiting: adequately controlled Pain: adequately controlled Airway Patency, RR, SpO2: stable & adequate BP & HR: stable & adequate Hydration State: stable & adequate Anesthetic Complications: no major complications apparent and Pt Satisfied with anesthetic care
[2019-05-09] MEDS ORDERED: Nursing to Pharmacy Communication ONE (08:47)
[2019-05-09] MEDS: LACTATED RINGER'S 1,000 ML IV SCH ×2 (10:06→20:38)
[2019-05-09] MEDS: ENOXAPARIN INJ 30 MG/0.3 ML SYR SQ SCH (12:21)
[2019-05-09] MEDS: ACETAMINOPHEN 325 MG TAB PO PRN (23:31)
[2019-05-10] MEDS: LACTATED RINGER'S 1,000 ML IV SCH ×2 (05:47→15:37)
[2019-05-10] MEDS: ACETAMINOPHEN 325 MG TAB PO PRN (07:56)
--- NOTE | 2019-05-10 08:19 | Surgery Progress Note ---
Date of Service May 10, 2019 Assessment & Plan (1) Parastomal hernia with obstruction and without gangrene: Doing as expected. Would continue with clears only until we get better stoma function. Pain is adequately controlled. Continue to increase activity as tolerated. Subjective Patient doing well. Feeling better than yesterday. No nausea or vomiting. No function from her ileostomy yet. Physical Exam Physical Exam: Alert no acute distress Abdomen is soft nondistended. Ileostomy looks good and is viable. No output yet. Results & Data Vital Signs (Past 12 Hours) Vital Signs Temp Pulse Resp BP Pulse Ox 05/10/19 07:36 37.1 C 78 17 135/75 96 05/10/19 01:33 99 H 05/10/19 00:20 105 H 05/09/19 23:57 108 H 05/09/19 23:07 37.5 C 115 H 20 130/78 95 PG Care Time/CCT Total # of Minutes Spent Total Time Spent with Patient: Total time spent is greater than 50% in coordination of care (as documented) at patient's floor/unit and/or counseling patient:
[2019-05-10] MEDS: FUROSEMIDE 20 MG TAB PO SCH (08:39)
[2019-05-10 09:24] LABS: Basophils # (auto) 0.01 K/uL (0-0.2); Basophils % (auto) 0.1 %; Eosinophils # (auto) 0.33 K/uL (0-0.5); Eosinophils % (auto) 2.6 %; Hematocrit (blood only) 36.1 % (37-47); Hemoglobin 11.6 g/dL (12.0-16.0); Immature Granulocytes # (auto) 0.03 K/uL (0.00-0.02); Immature Granulocytes % (auto) 0.2 %; Lymphocytes # (auto) 0.55 K/uL (1.2-3.4); Lymphocytes % (auto) 4.3 %; Mean Corpuscular Hemoglobin 31.7 pg (25-34); Mean Corpuscular Hgb Conc 32.1 g/dL (32-36); Mean Corpuscular Volume 98.6 fL (80-100); Mean Platelet Volume 10.1 fL (7.4-10.4); Monocytes # (auto) 1.02 K/uL (0.11-0.59); Neutrophils # (auto) 10.89 K/uL (1.4-6.5); Neutrophils % (auto) 84.8 %; Platelet Count 215 K/uL (130-400); RDW Coefficient of Variation 14.1 % (11.5-14.5); RDW Standard Deviation 50.5 fL (36.4-46.3); Red Blood Count 3.66 M/uL (4.2-5.4); White Blood Count 12.83 K/uL (4.8-10.8)
[2019-05-10 10:01] LABS: BUN Creatinine Ratio 10.3 (10-20); Calcium 9.1 mg/dl (8.5-10.1); Est GFR (African American) 102.2; Est GFR (Non-African American) 88.2; Potassium 3.3 mmol/L (3.5-5.1)
[2019-05-10] MEDS: ENOXAPARIN INJ 30 MG/0.3 ML SYR SQ SCH (12:23)
[2019-05-10] MEDS: OXYCODONE/ACETAMINOPHEN 5mg/325mg TAB PO PRN ×2 (14:04→17:21)
[2019-05-10] MEDS: CALCIUM CARBONATE 500 MG CHEWABLE TAB PO PRN (20:45)
[2019-05-11] MEDS: LACTATED RINGER'S 1,000 ML IV SCH ×3 (02:04→23:46)
[2019-05-11 05:25] LABS: Basophils # (auto) 0.01 K/uL (0-0.2); Basophils % (auto) 0.1 %; Eosinophils # (auto) 0.13 K/uL (0-0.5); Eosinophils % (auto) 1.4 %; Hematocrit (blood only) 35.1 % (37-47); Hemoglobin 11.4 g/dL (12.0-16.0); Immature Granulocytes # (auto) 0.02 K/uL (0.00-0.02); Immature Granulocytes % (auto) 0.2 %; Lymphocytes # (auto) 0.28 K/uL (1.2-3.4); Mean Corpuscular Hemoglobin 31.7 pg (25-34); Mean Corpuscular Hgb Conc 32.5 g/dL (32-36); Mean Corpuscular Volume 97.5 fL (80-100); Mean Platelet Volume 10.2 fL (7.4-10.4); Monocytes # (auto) 0.78 K/uL (0.11-0.59); Monocytes % (auto) 8.5 %; Neutrophils # (auto) 7.97 K/uL (1.4-6.5); Neutrophils % (auto) 86.8 %; Platelet Count 234 K/uL (130-400); RDW Coefficient of Variation 13.7 % (11.5-14.5); RDW Standard Deviation 49.4 fL (36.4-46.3); White Blood Count 9.19 K/uL (4.8-10.8)
[2019-05-11 05:49] LABS: BUN Creatinine Ratio 14.2 (10-20); Creatinine Clr Calc Pharmacy 73.7 ml/min; Est GFR (African American) 104.5; Est GFR (Non-African American) 90.2; Potassium 3.3 mmol/L (3.5-5.1)
[2019-05-11] MEDS: CALCIUM CARBONATE 500 MG CHEWABLE TAB PO PRN (06:14)
[2019-05-11] MEDS ORDERED: PANTOprazole 40 MG TAB PO SCH (09:00)
[2019-05-11] MEDS: FUROSEMIDE 20 MG TAB PO SCH (09:09)
--- NOTE | 2019-05-11 10:10 | Surgery Progress Note ---
Date of Service May 11, 2019 Assessment & Plan (1) Parastomal hernia with obstruction and without gangrene: Awaiting return of bowel function. May need NG tube. Will obtain KUB and if she has small bowel dilation will attempt NG tube insertion. Patient agreeable with the plan. Subjective Patient has developed nausea and severe reflux overnight. Also abdominal distention. Physical Exam Physical Exam: Alert and oriented no acute distress Abdomen is distended. Stoma looks good but minimal fluid output no stool. Incision looks good. Results & Data Vital Signs (Past 12 Hours) Vital Signs Temp Pulse Resp BP Pulse Ox 05/11/19 07:15 36.7 C 59 L 19 149/87 H 96 05/10/19 23:05 92 05/10/19 23:02 36.9 C 105 H 18 153/80 H 86 L PG Care Time/CCT Total # of Minutes Spent Total Time Spent with Patient: Total time spent is greater than 50% in coordination of care (as documented) at patient's floor/unit and/or counseling patient:
--- NOTE | 2019-05-11 10:27 | XRay Report ---
XR KUB/Abdomen 1 view CLINICAL HISTORY: 73 years-old Female presenting with ileus. TECHNIQUE: Single supine view of the abdomen was obtained. COMPARISON: 05/08/[address] from 05/08/2019. FINDINGS: Cholecystectomy clips. Gaseous distention of small bowel over 4 cm though this may be affected by mag nification. There is minimal if any small bowel wall thickening. A loop of gaseous distended bowel in the right abdomen does not demonstrate significant folds. This could suggest underlying chronic arriaga ge. No gross evidence of pneumoperitoneum or pneumatosis. Allowing for bowel gas and stool, no calcifications to suggest nephrolithiasis. Osseous structures normal. Skin page project over the lower abdomen. IMPRESSION: 1. Increased gaseous distention of small bowel since the prior exam consistent with worsening ileus versus developing obstruction. Continued follow-up is advised. 2. Post surgical changes of laparotomy as on prior radiograph, new since prior CT. Electronically signed by: Dwaine Hermosillo M.D. 05/11/2019 10:26 AM
[2019-05-11] MEDS: ACETAMINOPHEN 1,000 MG/100 ML VIAL IV PRN ×2 (11:40→20:02)
[2019-05-11] MEDS: ENOXAPARIN INJ 30 MG/0.3 ML SYR SQ SCH (13:02)
[2019-05-11] MEDS: POTASSIUM CHLORIDE / WTR 10 MEQ/100 ML PLCT IV SCH ×2 (15:50→16:51)
[2019-05-11] MEDS: MoRPHine SULFATE 4 MG/ML 1 ML CARP\\VIAL IV PRN (17:52)
[2019-05-12 05:36] LABS: Basophils # (auto) 0.01 K/uL (0-0.2); Basophils % (auto) 0.1 %; Eosinophils # (auto) 0.52 K/uL (0-0.5); Eosinophils % (auto) 6.9 %; Hematocrit (blood only) 33.1 % (37-47); Hemoglobin 10.3 g/dL (12.0-16.0); Immature Granulocytes # (auto) 0.02 K/uL (0.00-0.02); Immature Granulocytes % (auto) 0.3 %; Lymphocytes # (auto) 0.41 K/uL (1.2-3.4); Lymphocytes % (auto) 5.4 %; Mean Corpuscular Hgb Conc 31.1 g/dL (32-36); Mean Corpuscular Volume 99.7 fL (80-100); Mean Platelet Volume 9.7 fL (7.4-10.4); Monocytes % (auto) 15.9 %; Neutrophils % (auto) 71.4 %; Platelet Count 269 K/uL (130-400); RDW Coefficient of Variation 13.6 % (11.5-14.5); RDW Standard Deviation 49.3 fL (36.4-46.3); Red Blood Count 3.32 M/uL (4.2-5.4); White Blood Count 7.56 K/uL (4.8-10.8)
[2019-05-12 06:13] LABS: BUN Creatinine Ratio 15.1 (10-20); Calcium 8.8 mg/dl (8.5-10.1); Creatinine Clr Calc Pharmacy 79.2 ml/min; Est GFR (Non-African American) 92.3; Potassium 3.1 mmol/L (3.5-5.1)
[2019-05-12] MEDS: FUROSEMIDE 20 MG TAB PO SCH (08:46)
[2019-05-12] MEDS: FAMOTIDINE 20 MG in SYRINGE 3 ML IV SCH (08:46)
[2019-05-12] MEDS: D5W AND 1/2NSS + 20MEQ KCL 20 MEQ/1,000 ML BAG IV SCH ×2 (08:47→20:29)
[2019-05-12] MEDS: ACETAMINOPHEN 325 MG TAB PO PRN (10:20)
[2019-05-12] MEDS: ENOXAPARIN INJ 30 MG/0.3 ML SYR SQ SCH (11:37)
--- NOTE | 2019-05-12 15:20 | Surgery Progress Note ---
Date of Service May 12, 2019 Assessment & Plan (1) Parastomal hernia with obstruction and without gangrene: Postoperative day #4 status post repair reduction of incarcerated parastomal hernia Peristalsis seems to be returning with some drainage and stool in the ostomy We will continue NG for now however Continue n.p.o. Potassium continues to be replaced and changed to IV containing more potassium Encouraged ambulation Subjective Postoperative day #4, status post reduction and repair of incarcerated parastomal hernia Patient has no nausea today 200 cc of fluid documented as being drained earlier today Very little abdominal pain Distention is resolved Physical Exam Gastrointestinal (Abdomen): Inspection/Auscultation: + abdominal surgical incision (Clean, dry and intact); abdomen not distended Percussion/Palpation: abdomen soft; abdomen nontender Ileostomy is pink and draining with small amount in the bag at the present time Results & Data Vital Signs (Past 12 Hours) Vital Signs Temp Pulse Resp BP BP Pulse Ox 05/12/19 11:39 144/82 H 05/12/19 07:00 36.7 C 94 H 16 169/83 H 94 Laboratory Results 05/12/19 05/12/19 Range/Units 04:53 04:53 WBC 7.56 (4.8-10.8) K/uL RBC 3.32 L (4.2-5.4) M/uL Hgb 10.3 L (12.0-16.0) g/dL Hct 33.1 L (37-47) % MCV 99.7 (80-100) fL MCH 31.0 (25-34) pg MCHC 31.1 L (32-36) g/dL RDW Std Deviation 49.3 H (36.4-46.3) fL RDW Coeff of Deandre 13.6 (11.5-14.5) % Plt Count 269 (130-400) K/uL MPV 9.7 (7.4-10.4) fL Immature Gran % (Auto) 0.3 % Neut % (Auto) 71.4 % Lymph % (Auto) 5.4 % Warren % (Auto) 15.9 % Eos % (Auto) 6.9 % Baso % (Auto) 0.1 % Immature Gran # (Auto) 0.02 (0.00-0.02) K/uL Neut # (Auto) 5.40 (1.4-6.5) K/uL Lymph # (Auto) 0.41 L (1.2-3.4) K/uL Warren # (Auto) 1.20 H (0.11-0.59) K/uL Eos # (Auto) 0.52 H (0-0.5) K/uL Baso # (Auto) 0.01 (0-0.2) K/uL Sodium 140 (136-145) mmol/L Potassium 3.1 L (3.5-5.1) mmol/L Chloride 103 (98-107) mmol/L Carbon Dioxide 33 H (21-32) mmol/L Anion Gap 4.0 (3-11) BUN 8 (7-18) mg/dl Creatinine 0.54 L (0.6-1.2) mg/dl Est Cr Clr Drug Dosing 79.2 ml/min Est GFR ( Amer) 107.0 Est GFR (Non-Af Amer) 92.3 BUN/Creatinine Ratio 15.1 (10-20) Glucose 74 (70-99) mg/dl Calcium 8.8 (8.5-10.1) mg/dl
[2019-05-12] MEDS: ACETAMINOPHEN 1,000 MG/100 ML VIAL IV PRN (16:07)
--- NOTE | 2019-05-12 18:35 | Consultation ---
Date of Consultation May 12, 2019 Assessment & Plan (1) Hypoxia: (2) Cough: Pt with c/o intermittent productive cough for past several days. No recorded fevers, no chills. WBC: 12 on 05/10/19 has trended down to WBC: 7 today. Noted Hypoxia - Has been on oxygen via nasal cannula since procedure. Noted hypoxia at 89% on RA on 05/09/19, 86% on 05/10/19 and 88% on RA today. Has received moderate amount of IVF Reports been using incentive spirometer multiple times a day DDX: fluid overload, atelectasis, pneumonia, PE CXR: Small bilateral pleural effusions and bilateral linear densities which favor subsegmental atelectasis. PE considered however exam consistent with pleural effusions, atelectasis. If no improvement consider further imaging to r/o PE Daily weights Hold on additional IVF at this time Dose IV lasix tonight and tomorrow morning Plan to resume oral lasix on 05/14/19 if clinical improvement Monitor I&O's Incentive spirometer Supplemental oxygen, wean when able (3) Parastomal hernia with obstruction and without gangrene: Post op day# 4 S/P s/p repair of parastomal incarcerated hernia by Dr Teixeira Post op developed ileus. Is NPO and has NG tube Has been receiving IVF Pain management per general surgery Incentive spirometry Monitor H&H, Pre-op Hgb: 14. Today Hgb: 10 (4) Hypokalemia: K: 3.1 Received IVF with KCL Replace and monitor BMP (5) Ulcerative colitis: H/O ulcerative colitis, h/o subtotal colectomy, end ileostomy (6) Polymyalgia rheumatica: On chronic prednisone 5mg Home oral prednisone had been on hold since surgery Resume prednisone 5mg daily (7) CKD (chronic kidney disease), stage III: Baseline Cr: 0.9 Renal functions stable Monitor renal functions Avoid nephrotoxic agents when possible DVT Prophylaxis -Lovenox SQ per general surgery Pt was seen and care coordinated with Dr Gibson See addendum Pt will be followed by Dr Parker starting 05/13/19 Thank you for this consultation. We will follow the patient with you during their hospital stay. You can reach a member of the [facility] Hospitalist Team 18/12 via pager @ [phone]. Supervising Physician Co-Signing Physician Notes I have seen and examined the patient and have discussed the case with the provider above. I agree with the assessment and plan as stated. 73 yo female s/p parastomal repair several days ago, remains hypoxic. She is approximately+ 8L positive on her fluid assessments with the majority of the input from IV fluids. CXR supports this diagnosis with evidence of small bilateral pleural effusions. She reports feeling "swollen" and "full of fluid." Physical reveals a 73 yo F in no acute distress who is ambulatory with an NG tube in place. She has a soft abdomen with some output of stool note din the colostomy bag. Heart exam is normal revealing S1/2 without m/g/r. Lungs are clear to auscultation aside from the bases which have crackles on the R>L base, Abdomen is protuberant and patient is obese in general. No evidence of peripheral edema or body wall edema. Cont with plans for holding IVF, Lasix 40 IV once now and in the morning. Strict I/Os, daily standing weights. It is expected that the patient will have her GT out tomorrow and may possibly have her diet advanced. Thank you for this consultation. DO Artuhr History of Present Illness Requesting Physician: Dr Zarate Reason for Consultation: Medical consultation for cough Attending Physician: Frantz Teixeira MD History of Present Illness Pt is 73 y/o F with PMH ulcerative colitis, h/o subtotal colectomy, end ileostomy, CKD III, PMR, GERD, dyslipidemia seen in medical consultation for cough. Pt is POD #4 s/p repair of parastomal incarcerated hernia. Pt states for past 3 days has been having intermittent cough. Sometimes productive of yellow sputum, but often feels not able to expel much when coughing. States has been hearing wheezing after she has coughing episode. Denies SOB or CP. Denies history of asthma or COPD and does not wear oxygen at home. Has been on oxygen via nasal cannula intermittently since procedure. Has NG tube in place since yesterday as was having nausea, vomiting and abdominal distension and found to have post surgical ileus. Reports much improved nausea and no further vomiting since. States now having some stool output to bag. Is on IVF. Reports chronic BLE edema and takes Lasix three times a week. Reports some noted BLE edema past several days. Denies fever/chills, diaphoresis, N/V/D/C, BENJAMIN, dizziness, syncope, vision changes, neck pain, CP, orthopnea, palpitations, hemoptysis, sore throat, choking, otalgia, rhinorrhea, paresthesias, weakness, extremity weakness, rashes, urinary symptoms. Allergies Allergy/AdvReac Type Severity Reaction Status Date / Time Penicillins Allergy Severe Hives Verified 05/08/19 02:44 Cipro Allergy Intermediate SEVERE RASH Verified 01/24/14 12:55 ciprofloxacin Allergy Intermediate SEVERE RASH Verified 05/08/19 02:44 adhesive Allergy Mild Rash Verified 05/08/19 02:44 ondansetron [From Zofran] Allergy Mild Rash Verified 05/08/19 02:45 codeine Allergy Unknown n/v Verified 05/08/19 02:44 pinpoint pupils infliximab Allergy Unknown Unknown Verified 05/08/19 02:44 Quinolones Allergy Unknown Unknown Verified 05/08/19 02:44 tramadol Allergy Unknown bradycardia Verified 05/08/19 02:44 vancomycin Allergy Unknown Maris Verified 04/29/19 12:41 syndrome NONSTEROIDAL Allergy Unknown NAPROXEN Uncoded 04/19/19 12:54 Home Medications Home Medications Medication Instructions Recorded Confirmed Type aspirin 81 mg tablet,delayed 81 mg PO DAILY 04/19/19 05/08/19 History release omeprazole magnesium 20 mg 20 mg PO DAILY 04/19/19 05/08/19 History tablet,delayed release potassium chloride 10 mEq 10 meq PO 3XWK 04/19/19 05/08/19 History capsule,extended release Arthritis Extra Strength 2 tabs PO BID 05/08/19 05/08/19 History furosemide [Lasix] 20 mg PO 3XWK 05/08/19 05/12/19 History prednisone 5 mg PO DAILY 05/08/19 05/08/19 History rosuvastatin 5 mg PO DAILY 05/08/19 05/08/19 History turmeric root extract 1,053 mg PO BID 05/08/19 05/08/19 History Patient History Medical History CKD (chronic kidney disease), stage III Dyslipidemia Herpes zoster Missed Parastomal hernia with obstruction and without gangrene Ulcerative colitis Surgical History H/O ileostomy H/O oral surgery H/O ventral hernia repair History of colon surgery S/P appendectomy S/P colonoscopy S/P dilation and curettage S/P repair of ventral hernia parastomal with placement of biologic mesh S/P tonsillectomy and adenoidectomy S/P tubal ligation Family History Grandmother (Paternal) Breast cancer Grandmother (Maternal) Colorectal cancer Father Rheumatic heart disease Mother Thyroid cancer Social History Preferred Language: [place] Communication Ability: Effective [employer] Analyst Required: No Beliefs That Will Affect Care: None marital status: / Current Living Situation: Alone Other Information That Helps Us Care for You: No Feels Safe at Home: Yes Safety Concerns: Feels Safe At This Time Smoking Status: Former smoker Hx Alcohol Use: No Hx Substance Use: No Review of Systems Review of Systems: All systems reviewed & are unremarkable except as noted in HPI & below Physical Exam Physical Exam: General: no distress, WDWN Head: normocephalic, atraumatic Eyes: conjunctiva non-injected, anicteric ENT: normal inspection external ears, +NG tube in place otherwise normal appearance of nose, mucous membranes moist Neck: supple, trachea midline Lungs: no respiratory distress, currently on 2L oxygen via NC with sat 94%, R: 18, diminished breath sounds, faint expiratory wheeze at bilateral bases, no rhonchi/rales CV: RRR, no murmur, 1+ pretibial edema Abd: hypoactive BS, soft, +surgical dressing to mid abdomen, ostomy bag in place with soft brown stool, mild tenderness to palpation Ext: no cyanosis, no calf tenderness Neuro: A&O x 3, no focal deficits noted, normal affect Skin: warm, dry Results & Data Vital Signs (Past 12 Hours) Vital Signs Temp Pulse Pulse Resp BP BP Pulse Ox 05/12/19 16:28 22 94 05/12/19 16:25 90 88 L 05/12/19 15:41 37.1 C 91 H 16 152/85 H 91 05/12/19 11:39 144/82 H 05/12/19 07:00 36.7 C 94 H 16 169/83 H 94 Laboratory Results Short CBC 05/12/19 Range/Units 04:53 WBC 7.56 (4.8-10.8) K/uL Hgb 10.3 L (12.0-16.0) g/dL Hct 33.1 L (37-47) % Plt Count 269 (130-400) K/uL BMP 05/12/19 04:53 Sodium 140 Potassium 3.1 L Chloride 103 Carbon Dioxide 33 H BUN 8 Creatinine 0.54 L Glucose 74 Calcium 8.8 Diagnostic Findings CXR: IMPRESSION: 1. Small bilateral pleural effusions and bilateral linear densities which favor subsegmental atelectasis. 2. Nasogastric tube is located within the proximal stomach.
--- NOTE | 2019-05-12 19:31 | XRay Report ---
XR chest 2V PA/lateral HISTORY: cough COMPARISON: Chest 01/19/2014. Abdomen and pelvis CT 05/08/2019. FINDINGS: No pneumothorax. Small bilateral pleural effusions. Left basilar linear densities in the ri ght midlung zone linear density are new from the prior study. This favors subsegmental atelectasis. N asogastric tube is curled within the proximal stomach. No evidence for pulmonary edema. The heart is normal in size. IMPRESSION: 1. Small bilateral pleural effusions and bilateral linear densities which favor subsegmental atelecta sis. 2. Nasogastric tube is located within the proximal stomach. Electronically signed by: Dillon Saldivar M.D. 05/12/2019 7:29 PM
[2019-05-12] MEDS ORDERED: POTASSIUM CHLORIDE 20 MEQ TABCR PO STA (19:58)
[2019-05-12] MEDS ORDERED: POTASSIUM CHLORIDE 20 MEQ/15 ML UDC PO STA (20:04)
[2019-05-12] MEDS ORDERED: FUROSEMIDE 40 MG in SYRINGE 0 ML IV ONE (20:10)
[2019-05-12] MEDS: predniSONE 5 MG TAB PO SCH (20:49)
[2019-05-13] MEDS: ACETAMINOPHEN 1,000 MG/100 ML VIAL IV PRN ×2 (02:53→23:46)
[2019-05-13 06:09] LABS: Hematocrit (blood only) 36.6 % (37-47); Hemoglobin 11.8 g/dL (12.0-16.0); Mean Corpuscular Hemoglobin 31.4 pg (25-34); Mean Corpuscular Hgb Conc 32.2 g/dL (32-36); Mean Corpuscular Volume 97.3 fL (80-100); Mean Platelet Volume 9.6 fL (7.4-10.4); Platelet Count 296 K/uL (130-400); RDW Coefficient of Variation 13.4 % (11.5-14.5); RDW Standard Deviation 48.1 fL (36.4-46.3); Red Blood Count 3.76 M/uL (4.2-5.4); White Blood Count 7.27 K/uL (4.8-10.8)
[2019-05-13 06:46] LABS: BUN Creatinine Ratio 8.2 (10-20); Calcium 9.2 mg/dl (8.5-10.1); Creatinine Clr Calc Pharmacy 60.7 ml/min; Est GFR (African American) 94.9; Est GFR (Non-African American) 81.9; Magnesium 1.6 mg/dl (1.8-2.4)
--- NOTE | 2019-05-13 07:05 | Surgery Progress Note ---
Date of Service May 13, 2019 Assessment & Plan (1) Parastomal hernia with obstruction and without gangrene: Postoperative day #5 status post reduction repair of parastomal hernia Small amount of material with some substance in the ostomy Hopefully peristalsis is returning Would continue NG for now H&H is stable White blood cell count is normal Encouraged ambulation Subjective Postoperative day #5, status post reduction repair of incarcerated parastomal hernia Small amount of output from the ostomy Mildly distended NG tube with 300 out last shift T-max 37.5 Physical Exam Gastrointestinal (Abdomen): Inspection/Auscultation: + abdomen distended (Mild), + abdominal surgical incision (Clean, dry and intact) and + hypoactive bowel sounds (Present but decreased) Percussion/Palpation: + abdomen tender (Incisional only) Results & Data Vital Signs (Past 12 Hours) Vital Signs Temp Pulse Resp BP Pulse Ox 05/12/19 23:30 37.5 C 99 H 18 145/86 H 92 Laboratory Results 05/13/19 05/13/19 Range/Units 05:52 05:52 WBC 7.27 (4.8-10.8) K/uL RBC 3.76 L (4.2-5.4) M/uL Hgb 11.8 L (12.0-16.0) g/dL Hct 36.6 L (37-47) % MCV 97.3 (80-100) fL MCH 31.4 (25-34) pg MCHC 32.2 (32-36) g/dL RDW Std Deviation 48.1 H (36.4-46.3) fL RDW Coeff of Deandre 13.4 (11.5-14.5) % Plt Count 296 (130-400) K/uL MPV 9.6 (7.4-10.4) fL Sodium 138 (136-145) mmol/L Potassium 3.0 L (3.5-5.1) mmol/L Chloride 96 L (98-107) mmol/L Carbon Dioxide 35 H (21-32) mmol/L Anion Gap 7.0 (3-11) BUN 6 L (7-18) mg/dl Creatinine 0.72 (0.6-1.2) mg/dl Est Cr Clr Drug Dosing 60.7 ml/min Est GFR ( Amer) 94.9 Est GFR (Non-Af Amer) 81.9 BUN/Creatinine Ratio 8.2 L (10-20) Glucose 100 H (70-99) mg/dl Calcium 9.2 (8.5-10.1) mg/dl Magnesium 1.6 L (1.8-2.4) mg/dl
--- NOTE | 2019-05-13 08:51 | Hospitalist Progress Note ---
Date of Service May 13, 2019 Assessment & Plan (1) Hypoxia: (2) Cough: Pt with c/o intermittent productive cough for past several days. No recorded fevers, no chills. WBC: 12 on 05/10/19 has trended down to WBC: 7 today. Noted Hypoxia - Has been on oxygen via nasal cannula since procedure. Noted hypoxia at 89% on RA on 05/09/19, 86% on 05/10/19 and 88% on RA today. Has received moderate amount of IVF Reports been using incentive spirometer multiple times a day DDX: fluid overload, atelectasis, pneumonia, PE CXR: Small bilateral pleural effusions and bilateral linear densities which favor subsegmental atelectasis. PE considered however exam consistent with pleural effusions, atelectasis. If no improvement consider further imaging to r/o PE Daily weights Hold on additional IVF at this time Dose IV lasix tonight and tomorrow morning Plan to resume oral lasix on 05/14/19 if clinical improvement Monitor I&O's Incentive spirometer Supplemental oxygen, wean when able (3) Parastomal hernia with obstruction and without gangrene: Post op day# 5 S/P s/p repair of parastomal incarcerated hernia by Dr Teixeira Post op developed ileus. Is NPO and has NG tube Has been receiving IVF Pain management per general surgery Incentive spirometry Monitor H&H, Pre-op Hgb: 14. Today Hgb: 10 (4) Hypokalemia: Received IVF with KCL monitor BMP (5) Ulcerative colitis: H/O ulcerative colitis, h/o subtotal colectomy, end ileostomy (6) Polymyalgia rheumatica: On chronic prednisone 5mg Home oral prednisone had been on hold since surgery Resume prednisone 5mg daily (7) CKD (chronic kidney disease), stage III: Baseline Cr: 0.9 Renal functions stable Monitor renal functions Avoid nephrotoxic agents when possible DVT Prophylaxis -Lovenox SQ per general surgery Labs ordered. ROS-No Headache, No Visual Changes, No Nausea, No Vomiting, No Fever, No Chills, No Neck Pain or Stiffness, No Chest Pain, No Palpitations, No SOB, No WARD, No Cough, No Sputum, No Wheezing, minimal Abdominal Pain, No Diarrhea, No Hematemesis, No Hemoptysis, No Unexpected Weight Loss, No Flank pain, No Melena, No Hematochezia, No Frequency, No Urgency, No Burning, No Hematuria, No Rashes, No Diaphoresis. Appetite is Normal Physical Exam Gen-AAO x 3, NAD, Afebrile Head-NCAT, EOMI, PERRLA, Anicteric Sclera, No Posterior Pharyngeal Erythema Neck-Supple, No JVD, No Thyromegaly, No Masses, No LAD, No Bruits Lungs-Clear to Auscultation Bilaterally, No Rales, No Rhonchi, No Wheezing, No Crepitus Chest-No S4, +S1, +S2, No S3, No Murmurs, No Rubs, No Gallops, No Ectopy Abdomen-Soft, Bowel Sounds Present, Tender, Non Distended, No Hepatomegaly, ileostomy No Splenomegaly, No Palpable Masses, No Rebound, No Rigidity, No Guarding Musculoskeletal-Full Range of Motion Bilaterally, No CVAT Extremities-No Cyanosis, No Clubbing, No Edema Nuero-Cranial Nerves II-XII grossly intact, Motor WNL, DTRs WNL, Strength WNL, Non Focal Psych-Normal Mood Results & Data Vital Signs (Past 12 Hours) Vital Signs Temp Pulse Resp BP BP Pulse Ox 05/13/19 08:17 37.1 C 90 18 156/86 H 90 05/12/19 23:30 37.5 C 99 H 18 145/86 H 92
[2019-05-13] MEDS ORDERED: FUROSEMIDE 40 MG in SYRINGE 0 ML IV ONE (09:00)
[2019-05-13] MEDS: FAMOTIDINE 20 MG in SYRINGE 3 ML IV SCH (09:17)
[2019-05-13] MEDS: POTASSIUM CHLORIDE / WTR 10 MEQ/100 ML PLCT IV SCH ×3 (09:27→12:11)
[2019-05-13] MEDS: predniSONE 5 MG TAB PO SCH (10:13)
[2019-05-13] MEDS: ENOXAPARIN INJ 30 MG/0.3 ML SYR SQ SCH (12:16)
[2019-05-14 07:46] LABS: Hematocrit (blood only) 34.4 % (37-47); Hemoglobin 11.2 g/dL (12.0-16.0); Mean Corpuscular Hemoglobin 31.5 pg (25-34); Mean Corpuscular Hgb Conc 32.6 g/dL (32-36); Mean Corpuscular Volume 96.6 fL (80-100); Mean Platelet Volume 9.6 fL (7.4-10.4); Platelet Count 287 K/uL (130-400); RDW Coefficient of Variation 13.6 % (11.5-14.5); Red Blood Count 3.56 M/uL (4.2-5.4); White Blood Count 6.74 K/uL (4.8-10.8)
[2019-05-14 08:17] LABS: Albumin Level 2.2 gm/dl (3.4-5.0); BUN Creatinine Ratio 16.7 (10-20); Creatinine Clr Calc Pharmacy 63.1 ml/min; Est GFR (African American) 98.7; Est GFR (Non-African American) 85.2; Potassium 2.8 mmol/L (3.5-5.1)
[2019-05-14 08:20] LABS: Albumin Globulin Ratio 0.5 (0.9-2); Bilirubin,Total 0.5 mg/dl (0.2-1); Globulin 4.1 gm/dl (2.5-4.0); Total Protein 6.3 gm/dl (6.4-8.2)
--- NOTE | 2019-05-14 08:56 | Surgery Progress Note ---
Date of Service May 14, 2019 Assessment & Plan (1) Parastomal hernia with obstruction and without gangrene: Postoperative day #6, status post reduction repair of incarcerated parastomal hernia Improved today Ostomy has begun to function Can DC NG tube with sips of clear liquids Encouraged ambulation Potassium from this morning is pending at this time, will monitor H&H is stable White blood cell count normal Subjective Postoperative day #6, status post reduction and repair of parastomal hernia. The patient subjectively appears much better today She has had output from the ostomy beginning last evening Had some nausea prior to the bag draining but that resolved Has not vomited NG tube output is decreased Denies abdominal pain Physical Exam Gastrointestinal (Abdomen): Inspection/Auscultation: normal bowel sounds and + abdominal surgical incision (Clean, dry and intact) Percussion/Palpation: abdomen soft; abdomen nontender Ostomy is pink with drainage in the bag Results & Data Vital Signs (Past 12 Hours) Vital Signs Temp Pulse Pulse Resp BP Pulse Ox 05/14/19 07:41 37.2 C 94 H 18 154/79 H 92 05/13/19 23:25 102 H 05/13/19 23:10 37.3 C 111 H 20 135/81 93 Laboratory Results 05/14/19 05/14/19 Range/Units 07:23 07:23 WBC 6.74 (4.8-10.8) K/uL RBC 3.56 L (4.2-5.4) M/uL Hgb 11.2 L (12.0-16.0) g/dL Hct 34.4 L (37-47) % MCV 96.6 (80-100) fL MCH 31.5 (25-34) pg MCHC 32.6 (32-36) g/dL RDW Std Deviation 48.0 H (36.4-46.3) fL RDW Coeff of Deandre 13.6 (11.5-14.5) % Plt Count 287 (130-400) K/uL MPV 9.6 (7.4-10.4) fL Sodium 138 (136-145) mmol/L Potassium 2.8 L (3.5-5.1) mmol/L Chloride 96 L (98-107) mmol/L Carbon Dioxide 32 (21-32) mmol/L Anion Gap 10.0 (3-11) BUN 12 D (7-18) mg/dl Creatinine 0.69 (0.6-1.2) mg/dl Est Cr Clr Drug Dosing 63.1 ml/min Est GFR ( Amer) 98.7 Est GFR (Non-Af Amer) 85.2 BUN/Creatinine Ratio 16.7 (10-20) Glucose 84 (70-99) mg/dl Calcium 9.0 (8.5-10.1) mg/dl Total Bilirubin 0.5 (0.2-1) mg/dl AST 26 (15-37) U/L ALT 19 (12-78) U/L Alkaline Phosphatase 57 (45-117) U/L Total Protein 6.3 L (6.4-8.2) gm/dl Albumin 2.2 L (3.4-5.0) gm/dl Globulin 4.1 H (2.5-4.0) gm/dl Albumin/Globulin Ratio 0.5 L (0.9-2)
[2019-05-14] MEDS ORDERED: FUROSEMIDE 20 MG TAB PO SCH (09:00)
[2019-05-14] MEDS: FAMOTIDINE 20 MG in SYRINGE 3 ML IV SCH (09:15)
[2019-05-14] MEDS: predniSONE 5 MG TAB PO SCH (09:16)
[2019-05-14] MEDS: ACETAMINOPHEN 1,000 MG/100 ML VIAL IV PRN (11:44)
[2019-05-14] MEDS: ENOXAPARIN INJ 30 MG/0.3 ML SYR SQ SCH (11:48)
[2019-05-14 19:09] LABS: Potassium 2.8 mmol/L (3.5-5.1)
[2019-05-14 19:11] LABS: Magnesium 1.7 mg/dl (1.8-2.4)
--- NOTE | 2019-05-14 19:21 | Hospitalist Progress Note ---
Date of Service May 14, 2019 Assessment & Plan (1) Hypoxia: (1) Hypoxia: (2) Cough: secondary to Pleural Effusion off oxygen supplement continue PO Lasix monitor K (3) Parastomal hernia with obstruction and without gangrene: S/P s/p repair of parastomal incarcerated hernia by Dr Teixeira Post op developed ileus. Is NPO and has NG tube -- improving (4) Hypokalemia: will replace with IV and PO K will replace Mg (5) Ulcerative colitis: H/O ulcerative colitis, h/o subtotal colectomy, end ileostomy (6) Polymyalgia rheumatica: On chronic prednisone 5mg Home oral prednisone had been on hold since surgery Resume prednisone 5mg daily (7) CKD (chronic kidney disease), stage III: Baseline Cr: 0.9 Renal functions stable Avoid nephrotoxic agents when possible DVT Prophylaxis -Lovenox SQ per general surgery Thank you for this consultation. We will follow the patient with you during their hospital stay. You can reach a member of the [facility] Hospitalist Team 18/12 via pager @ [phone]. Subjective ff up for post op, hypoxia seen resting in chair, comfortable, on room air states she feels improved compared to yesterday denies shortness of breath, chest pain, cough, palpitations no nausea/vomiting no other symptoms Review of Systems Review of Systems: All systems reviewed & are unremarkable except as noted in HPI & below Physical Exam Physical Exam: General- oriented x 3, not in distress, speaks in sentences with no effort or accessory muscle use Head- atraumatic Eyes- PERRL, EOMI, anicteric ENT- oropharynx clear Neck- supple, no JVD, no adenopathy, no thyromegaly; carotids +2/2, no bruits appreciated Lungs- clear to auscultation bilaterally, no rales/wheezes Heart- normal rate, regular rhythm; no murmur, no gallop, no rub appreciated Abdomen- normal bowel sounds, nondistended, soft, nontender, no masses or hepatosplenomegaly Extremities- mild pretibial edema, no calf tenderness; peripheral pulses intact Neuro- alert, oriented x 3; CN 2-12 grossly intact; motor 5/5 bilaterally;sensation 100% on all extremities; no other gross focal neurologic deficits Skin- warm & dry Results & Data Vital Signs (Past 12 Hours) Vital Signs Temp Pulse Resp BP Pulse Ox 05/14/19 16:12 37.1 C 95 H 18 126/82 92 05/14/19 07:41 37.2 C 94 H 18 154/79 H 92 Laboratory Results Laboratory Results - last 24 hr 05/14/19 05/14/19 05/14/19 07:23 07:23 18:37 WBC 6.74 RBC 3.56 L Hgb 11.2 L Hct 34.4 L MCV 96.6 MCH 31.5 MCHC 32.6 RDW Std Deviation 48.0 H RDW Coeff of Deandre 13.6 Plt Count 287 MPV 9.6 Sodium 138 Potassium 2.8 L 2.8 L Chloride 96 L Carbon Dioxide 32 Anion Gap 10.0 BUN 12 D Creatinine 0.69 Est Cr Clr Drug Dosing 63.1 Est GFR ( Amer) 98.7 Est GFR (Non-Af Amer) 85.2 BUN/Creatinine Ratio 16.7 Glucose 84 Calcium 9.0 Magnesium 1.7 L Total Bilirubin 0.5 AST 26 ALT 19 Alkaline Phosphatase 57 Total Protein 6.3 L Albumin 2.2 L Globulin 4.1 H Albumin/Globulin Ratio 0.5 L
[2019-05-14] MEDS ORDERED: POTASSIUM CHLORIDE 20 MEQ TABCR PO ONE (20:00)
[2019-05-14] MEDS: MAGNESIUM OXIDE 400 MG TAB PO SCH (20:36)
[2019-05-14] MEDS: POTASSIUM CHLORIDE / WTR 10 MEQ/100 ML PLCT IV SCH ×2 (20:36→23:15)
[2019-05-15] MEDS: ACETAMINOPHEN 1,000 MG/100 ML VIAL IV PRN (01:23)
--- NOTE | 2019-05-15 02:52 | Communication Note ---
Date of Service: May 15, 2019 Patient with fever spikes as per RN. Cough symptoms resolved. Usual greenish out ostomy output as per RN. Denies UTI symptoms. AP Fever Possible bacterial infection given elevated procalcitonin immunocompromised patient (hx PMR on chronic steroid Rx) No obvious source for now. Cultures, Daptomycin, Cefepime for now. Will relay to AM provider.
[2019-05-15 03:32] LABS: Basophils # (auto) 0.02 K/uL (0-0.2); Basophils % (auto) 0.2 %; Eosinophils # (auto) 0.32 K/uL (0-0.5); Eosinophils % (auto) 3.1 %; Hematocrit (blood only) 31.2 % (37-47); Hemoglobin 10.2 g/dL (12.0-16.0); Immature Granulocytes # (auto) 0.05 K/uL (0.00-0.02); Immature Granulocytes % (auto) 0.5 %; Lymphocytes # (auto) 1.01 K/uL (1.2-3.4); Lymphocytes % (auto) 9.7 %; Mean Corpuscular Hemoglobin 31.3 pg (25-34); Mean Corpuscular Hgb Conc 32.7 g/dL (32-36); Mean Corpuscular Volume 95.7 fL (80-100); Mean Platelet Volume 9.3 fL (7.4-10.4); Monocytes # (auto) 0.88 K/uL (0.11-0.59); Monocytes % (auto) 8.5 %; Neutrophils # (auto) 8.08 K/uL (1.4-6.5); Nucleated RBC # (auto) 0.02 K/uL (0-0); Nucleated RBC % (auto) 0.2 %; Platelet Count 319 K/uL (130-400); RDW Coefficient of Variation 13.5 % (11.5-14.5); RDW Standard Deviation 47.2 fL (36.4-46.3); Red Blood Count 3.26 M/uL (4.2-5.4); White Blood Count 10.36 K/uL (4.8-10.8)
[2019-05-15 03:49] LABS: Albumin Level 2.1 gm/dl (3.4-5.0); BUN Creatinine Ratio 18.6 (10-20); Calcium 8.5 mg/dl (8.5-10.1); Est GFR (African American) 99.7; Magnesium 1.6 mg/dl (1.8-2.4); Potassium 3.2 mmol/L (3.5-5.1)
[2019-05-15 03:52] LABS: Albumin Globulin Ratio 0.6 (0.9-2); Bilirubin,Total 0.3 mg/dl (0.2-1); Globulin 3.7 gm/dl (2.5-4.0); Total Protein 5.8 gm/dl (6.4-8.2)
[2019-05-15] MEDS ORDERED: POTASSIUM CHLORIDE 20 MEQ TABCR PO STA (04:14)
[2019-05-15] MEDS ORDERED: MAGNESIUM SULFATE / D5W 1 GM/100 ML BAG IV ONE ×2 (04:14→07:45)
[2019-05-15 05:04] LABS: Appearance Urine Clear (Clear); Bacteria Urine Automated Negative (Negative); Blood Urine 1+ (Negative); Color Urine Dark Yellow; Epithelial Cell Urine Auto >30 /lpf (0-5); Glucose Urine UA Negative (Negative); Leukocyte Esterase Urine Negative (Negative); Nitrite Urine Negative (Negative); Protein Urine 1+ (Negative); Specific Gravity Urine 1.043 (1.000-1.030); Urobilinogen Urine Negative (Negative)
[2019-05-15 05:10] LABS: Bilirubin Urine 2+ (Negative)
[2019-05-15 05:13] LABS: Ketones Urine 4+ (Negative)
[2019-05-15] MEDS ORDERED: ALBUMIN 25% 50 ML IV ONE (05:21)
[2019-05-15] MEDS ORDERED: CEFEPIME CONSULT ACTIVE PRN (06:04)
[2019-05-15] MEDS ORDERED: DAPTOMYCIN CONSULT ACTIVE PRN (06:04)
[2019-05-15] MEDS: CEFEPIME 2,000 MG in SYRINGE 7.5 ML IV SCH ×2 (06:29→18:02)
[2019-05-15] MEDS: DAPTOmycin 275 MG in SYRINGE 0 ML IV SCH (06:29)
--- NOTE | 2019-05-15 07:25 | Surgery Progress Note ---
Date of Service May 15, 2019 Assessment & Plan (1) Parastomal hernia with obstruction and without gangrene: Postoperative day #7 status post reduction repair of incarcerated parastomal hernia I took 2 page out of the lower portion of the incision open that. There was some thicker material there but he did not appear to be purulent but may have been old blood. I performed a culture. We will continue antibiotics for now Advance to full liquid diet Continue to encourage ambulation Potassium replacement continues, potassium was 3.2 this morning Subjective Postoperative day #7 status post reduction repair of incarcerated ventral hernia Had temperature elevation last night and was placed on antibiotics, appreciate Dr. Lainez's input Stated that she feels much better today Denies nausea, tolerated clear liquids Ostomy functioning and is been drained multiple times Has some mild incisional discomfort Ambulated in the halls yesterday Physical Exam Gastrointestinal (Abdomen): Inspection/Auscultation: normal bowel sounds and + abdominal surgical incision (Mild erythema near the distal two thirds); abdomen not distended Percussion/Palpation: + abdomen tender (Incisional only) and abdomen soft Ileostomy is pink and functioning Results & Data Vital Signs (Past 12 Hours) Vital Signs Temp Pulse Pulse Resp BP BP Pulse Ox 05/15/19 06:45 37.1 C 96 H 18 130/78 91 05/15/19 05:47 37.3 C 05/15/19 02:28 37.4 C 98 H 16 133/78 93 05/15/19 01:28 37.8 C H 05/14/19 23:30 96 H 92 05/14/19 23:25 38.1 C H 108 H 20 159/84 H 90 Laboratory Results 05/15/19 05/15/19 05/15/19 Range/Units 04:54 03:17 03:17 WBC (4.8-10.8) K/uL RBC (4.2-5.4) M/uL Hgb (12.0-16.0) g/dL Hct (37-47) % MCV (80-100) fL MCH (25-34) pg MCHC (32-36) g/dL RDW Std Deviation (36.4-46.3) fL RDW Coeff of Deandre (11.5-14.5) % Plt Count (130-400) K/uL MPV (7.4-10.4) fL Immature Gran % (Auto) % Neut % (Auto) % Lymph % (Auto) % [place] % (Auto) % Eos % (Auto) % Baso % (Auto) % Immature Gran # (Auto) (0.00-0.02) K/uL Neut # (Auto) (1.4-6.5) K/uL Lymph # (Auto) (1.2-3.4) K/uL [place] # (Auto) (0.11-0.59) K/uL Eos # (Auto) (0-0.5) K/uL Baso # (Auto) (0-0.2) K/uL Absolute Nucleated RBC (0-0) K/uL Nucleated RBC % (auto) % Sodium (136-145) mmol/L Potassium (3.5-5.1) mmol/L Chloride (98-107) mmol/L Carbon Dioxide (21-32) mmol/L Anion Gap (3-11) BUN (7-18) mg/dl Creatinine (0.6-1.2) mg/dl Est Cr Clr Drug Dosing ml/min Est GFR ( Amer) Est GFR (Non-Af Amer) BUN/Creatinine Ratio (10-20) Glucose (70-99) mg/dl Lactate 0.9 (0.4-2.0) mmol/L Calcium (8.5-10.1) mg/dl Magnesium (1.8-2.4) mg/dl Total Bilirubin (0.2-1) mg/dl AST (15-37) U/L ALT (12-78) U/L Alkaline Phosphatase (45-117) U/L Total Protein (6.4-8.2) gm/dl Albumin (3.4-5.0) gm/dl Globulin (2.5-4.0) gm/dl Albumin/Globulin Ratio (0.9-2) Procalcitonin 1.03 H (0-0.5) ng/ml Urine Color Dark Yellow Urine Appearance Clear (Clear) Urine pH 6.0 (4.5-7.5) Ur Specific Minto 1.043 H (1.000-1.030) Urine Protein 1+ H (Negative) Urine Glucose (UA) Negative (Negative) Urine Ketones 4+ H (Negative) Urine Blood 1+ H (Negative) Urine Nitrite Negative (Negative) Urine Bilirubin 2+ H (Negative) Urine Urobilinogen Negative (Negative) Ur Leukocyte Esterase Negative (Negative) Urine WBC (Auto) 1-5 (0-5) /hpf Urine RBC (Auto) 10-30 H (0-4) /hpf U Hyaline Cast (Auto) 1-5 (0-5) /lpf U Epithel Cells (Auto) >30 H (0-5) /lpf Urine Bacteria (Auto) Negative (Negative) 05/15/19 05/15/19 05/14/19 Range/Units 03:17 03:17 18:37 WBC 10.36 (4.8-10.8) K/uL RBC 3.26 L (4.2-5.4) M/uL Hgb 10.2 L (12.0-16.0) g/dL Hct 31.2 L (37-47) % MCV 95.7 (80-100) fL MCH 31.3 (25-34) pg MCHC 32.7 (32-36) g/dL RDW Std Deviation 47.2 H (36.4-46.3) fL RDW Coeff of Deandre 13.5 (11.5-14.5) % Plt Count 319 (130-400) K/uL MPV 9.3 (7.4-10.4) fL Immature Gran % (Auto) 0.5 % Neut % (Auto) 78.0 % Lymph % (Auto) 9.7 % [place] % (Auto) 8.5 % Eos % (Auto) 3.1 % Baso % (Auto) 0.2 % Immature Gran # (Auto) 0.05 H (0.00-0.02) K/uL Neut # (Auto) 8.08 H (1.4-6.5) K/uL Lymph # (Auto) 1.01 L (1.2-3.4) K/uL [place] # (Auto) 0.88 H (0.11-0.59) K/uL Eos # (Auto) 0.32 (0-0.5) K/uL Baso # (Auto) 0.02 (0-0.2) K/uL Absolute Nucleated RBC 0.02 H (0-0) K/uL Nucleated RBC % (auto) 0.2 % Sodium 136 (136-145) mmol/L Potassium 3.2 L 2.8 L (3.5-5.1) mmol/L Chloride 98 (98-107) mmol/L Carbon Dioxide 32 (21-32) mmol/L Anion Gap 6.0 (3-11) BUN 12 (7-18) mg/dl Creatinine 0.67 (0.6-1.2) mg/dl Est Cr Clr Drug Dosing 65.0 ml/min Est GFR ( Amer) 99.7 Est GFR (Non-Af Amer) 86.0 BUN/Creatinine Ratio 18.6 (10-20) Glucose 97 (70-99) mg/dl Lactate (0.4-2.0) mmol/L Calcium 8.5 (8.5-10.1) mg/dl Magnesium 1.6 L 1.7 L (1.8-2.4) mg/dl Total Bilirubin 0.3 (0.2-1) mg/dl AST 26 (15-37) U/L ALT 20 (12-78) U/L Alkaline Phosphatase 73 (45-117) U/L Total Protein 5.8 L (6.4-8.2) gm/dl Albumin 2.1 L (3.4-5.0) gm/dl Globulin 3.7 (2.5-4.0) gm/dl Albumin/Globulin Ratio 0.6 L (0.9-2) Procalcitonin (0-0.5) ng/ml Urine Color Urine Appearance (Clear) Urine pH (4.5-7.5) Ur Specific Minto (1.000-1.030) Urine Protein (Negative) Urine Glucose (UA) (Negative) Urine Ketones (Negative) Urine Blood (Negative) Urine Nitrite (Negative) Urine Bilirubin (Negative) Urine Urobilinogen (Negative) Ur Leukocyte Esterase (Negative) Urine WBC (Auto) (0-5) /hpf Urine RBC (Auto) (0-4) /hpf U Hyaline Cast (Auto) (0-5) /lpf U Epithel Cells (Auto) (0-5) /lpf Urine Bacteria (Auto) (Negative) 05/14/19 05/14/19 Range/Units 07:23 07:23 WBC 6.74 (4.8-10.8) K/uL RBC 3.56 L (4.2-5.4) M/uL Hgb 11.2 L (12.0-16.0) g/dL Hct 34.4 L (37-47) % MCV 96.6 (80-100) fL MCH 31.5 (25-34) pg MCHC 32.6 (32-36) g/dL RDW Std Deviation 48.0 H (36.4-46.3) fL RDW Coeff of Deandre 13.6 (11.5-14.5) % Plt Count 287 (130-400) K/uL MPV 9.6 (7.4-10.4) fL Immature Gran % (Auto) % Neut % (Auto) % Lymph % (Auto) % [place] % (Auto) % Eos % (Auto) % Baso % (Auto) % Immature Gran # (Auto) (0.00-0.02) K/uL Neut # (Auto) (1.4-6.5) K/uL Lymph # (Auto) (1.2-3.4) K/uL [place] # (Auto) (0.11-0.59) K/uL Eos # (Auto) (0-0.5) K/uL Baso # (Auto) (0-0.2) K/uL Absolute Nucleated RBC (0-0) K/uL Nucleated RBC % (auto) % Sodium 138 (136-145) mmol/L Potassium 2.8 L (3.5-5.1) mmol/L Chloride 96 L (98-107) mmol/L Carbon Dioxide 32 (21-32) mmol/L Anion Gap 10.0 (3-11) BUN 12 D (7-18) mg/dl Creatinine 0.69 (0.6-1.2) mg/dl Est Cr Clr Drug Dosing 63.1 ml/min Est GFR ( Amer) 98.7 Est GFR (Non-Af Amer) 85.2 BUN/Creatinine Ratio 16.7 (10-20) Glucose 84 (70-99) mg/dl Lactate (0.4-2.0) mmol/L Calcium 9.0 (8.5-10.1) mg/dl Magnesium (1.8-2.4) mg/dl Total Bilirubin 0.5 (0.2-1) mg/dl AST 26 (15-37) U/L ALT 19 (12-78) U/L Alkaline Phosphatase 57 (45-117) U/L Total Protein 6.3 L (6.4-8.2) gm/dl Albumin 2.2 L (3.4-5.0) gm/dl Globulin 4.1 H (2.5-4.0) gm/dl Albumin/Globulin Ratio 0.5 L (0.9-2) Procalcitonin (0-0.5) ng/ml Urine Color Urine Appearance (Clear) Urine pH (4.5-7.5) Ur Specific Minto (1.000-1.030) Urine Protein (Negative) Urine Glucose (UA) (Negative) Urine Ketones (Negative) Urine Blood (Negative) Urine Nitrite (Negative) Urine Bilirubin (Negative) Urine Urobilinogen (Negative) Ur Leukocyte Esterase (Negative) Urine WBC (Auto) (0-5) /hpf Urine RBC (Auto) (0-4) /hpf U Hyaline Cast (Auto) (0-5) /lpf U Epithel Cells (Auto) (0-5) /lpf Urine Bacteria (Auto) (Negative)
[2019-05-15 08:22] LABS: Creatinine Clr Calc Pharmacy 56.3 ml/min; Est GFR (African American) 87.5; Est GFR (Non-African American) 75.5
[2019-05-15] MEDS: MAGNESIUM OXIDE 400 MG TAB PO SCH ×2 (08:58→21:04)
[2019-05-15] MEDS: predniSONE 5 MG TAB PO SCH (08:58)
[2019-05-15] MEDS: POTASSIUM CHLORIDE 20 MEQ TABCR PO SCH ×2 (08:58→21:04)
[2019-05-15] MEDS: FAMOTIDINE 20 MG in SYRINGE 3 ML IV SCH (08:59)
[2019-05-15] MEDS: ENOXAPARIN INJ 30 MG/0.3 ML SYR SQ SCH (11:46)
[2019-05-15] MEDS: ACETAMINOPHEN 325 MG TAB PO PRN (15:58)
--- NOTE | 2019-05-15 17:34 | Hospitalist Progress Note ---
Date of Service May 15, 2019 Assessment & Plan (1) Hypoxia: Fever -- possible wound infection? -- wound culture: pending CXR: ordered -- afebrile since this AM continue Dapto + Cefepime (1) Hypoxia: (2) Cough: secondary to Pleural Effusion off oxygen supplement continue PO Lasix monitor K (3) Parastomal hernia with obstruction and without gangrene: S/P s/p repair of parastomal incarcerated hernia by Dr Teixeira Post op developed ileus. Is NPO and has NG tube -- improving , diet advanced to full liquids (4) Hypokalemia: replaced with IV and PO K replaced Mg -- improving (5) Ulcerative colitis: -- H/O ulcerative colitis, h/o subtotal colectomy, end ileostomy (6) Polymyalgia rheumatica: Resume prednisone 5mg daily (7) CKD (chronic kidney disease), stage III: Baseline Cr: 0.9 Renal functions stable Avoid nephrotoxic agents when possible DVT Prophylaxis -Lovenox SQ per general surgery Thank you for this consultation. We will follow the patient with you during their hospital stay. You can reach a member of the [facility] Hospitalist Team 18/12 via pager @ [phone]. Subjective ff up for post op eval, fever seen resting in bed, comfortable, in good spirits (+) fever overnight states she feels ok overall denies headache, cough, SOB, abdominal pain (+) ostomy output denies pain on the surgical site no other symptoms Review of Systems Review of Systems: All systems reviewed & are unremarkable except as noted in HPI & below Physical Exam Physical Exam: General- oriented x 3, not in distress, speaks in sentences with no effort or accessory muscle use Eyes- anicteric Neck- no JVD Lungs- clear breath sounds bilaterally, no rales/wheezes Heart- normal rate, regular rhythm; no murmurs Abdomen- normal bowel sounds, nondistended, soft, nontender surgical wound- page intact, (+) minimal serosaguinous drainage from the incision site, mild surrounding erythema, no tenderness/warmth Extremities- no pretibial edema, no calf tenderness Neuro- alert, oriented x 3; no gross focal neurologic deficits Skin- warm & dry Results & Data Vital Signs (Past 12 Hours) Vital Signs Temp Pulse Resp BP Pulse Ox 05/15/19 15:29 37.8 C H 98 H 18 142/81 H 91 05/15/19 07:26 37.0 C 95 H 16 131/82 92 05/15/19 06:45 37.1 C 96 H 18 130/78 91 05/15/19 05:47 37.3 C
--- NOTE | 2019-05-15 17:54 | XRay Report ---
XR chest 1V portable CLINICAL HISTORY: 73 years-old Female presenting with bilateral pleural effusions and basilar infiltr ates, follow-up, r/o pneumonia. TECHNIQUE: Portable upright AP view of the chest was obtained. COMPARISON: 05/12/2019. FINDINGS: Removal of the prior nasogastric tube. Borderline cardiac silhouette enlargement. Blunting of the lef t costophrenic angle with trace left basilar opacity. No pneumothorax. Bandlike opacity in the right midlung persists. Osseous structures normal. Mild gaseous distention of bowel. IMPRESSION: 1. Borderline cardiomegaly. No evidence of volume overload or congestive change. 2. Trace left basilar effusion and atelectasis suspected. 3. No focal infiltrate to suggest pneumonia. ACT 112: Negative or not required by law. Electronically signed by: Dwaine Hermosillo M.D. 05/15/2019 5:53 PM
[2019-05-16] MEDS: CEFEPIME 2,000 MG in SYRINGE 7.5 ML IV SCH ×2 (05:38→17:43)
[2019-05-16] MEDS: DAPTOmycin 275 MG in SYRINGE 0 ML IV SCH (05:38)
[2019-05-16 08:24] LABS: BUN Creatinine Ratio 22.3 (10-20); Calcium 9.7 mg/dl (8.5-10.1); Creatinine Clr Calc Pharmacy 53.6 ml/min; Est GFR (African American) 83.6; Est GFR (Non-African American) 72.1; Potassium 4.3 mmol/L (3.5-5.1)
[2019-05-16] MEDS: MAGNESIUM OXIDE 400 MG TAB PO SCH ×2 (08:33→20:24)
[2019-05-16] MEDS: POTASSIUM CHLORIDE 20 MEQ TABCR PO SCH ×2 (08:33→20:24)
[2019-05-16] MEDS: predniSONE 5 MG TAB PO SCH (08:33)
[2019-05-16] MEDS: FAMOTIDINE 20 MG TAB PO SCH (08:42)
--- NOTE | 2019-05-16 08:42 | Surgery Progress Note ---
Date of Service May 16, 2019 Assessment & Plan (1) Parastomal hernia with obstruction and without gangrene: Postoperative day #8 status post reduction repair of incarcerated parastomal hernia with biologic mesh - now with wound infection, midline incision opened, irrigated, packing tammy mary today - preliminary culture with gram negative bacilli and gram positive cocci and bacilli, sensitivities pending - febrile last night tmax of 37.8, afebrile this morning - potassium and magnesium replaced - ostomy funcitioning Plan: advance diet to low fiber diet, advised to go slow Continue IV Abx , await sensitivities daily packing changes starting tomorrow and dressing changes as needed to keep dry Continue to encourage ambulation Incentive spirometry SCDs and lovenox for dvt prophylaxis appreciate hospitalist comanagement will need case management to re-evaluate for home health and needed for packing changes once discharged continue ostomy care as needed Dr. Teixeira has seen and examined pt, agrees with above. Subjective had vomiting last night after taking oral potassium pill otherwise no nausea or vomiting soreness at incision site ostomy functioning with high output tolerating full liquids Physical Exam Constitutional: WD/WN, vitals as above no acute distress Gastrointestinal (Abdomen): Inspection/Auscultation: abdomen normal to inspection; abdomen not distended Percussion/Palpation: + abdomen tender (at incision site) and abdomen soft; no guarding and abdomen not rigid RLQ ostomy functioning with liquid stool present Skin: no rashes, warm and dry midline laparotomy incision with page present, few page removed and small open wound there is induration of the superior aspect of incision with associated erythema Midline wound irrigated with saline thick purulent material expressed, thoroughly irrigated until clear return. erythema marked with skin marker Psychiatric: A+Ox3, euthymic affect Results & Data Vital Signs (Past 12 Hours) Vital Signs Temp Pulse Resp BP Pulse Ox 05/16/19 07:25 37.3 C 98 H 18 122/80 94 05/16/19 05:50 37.5 C 05/16/19 00:05 37.5 C 05/15/19 23:17 37.6 C H 94 H 16 129/77 97 Laboratory Results 05/16/19 05/16/19 Range/Units 07:45 07:40 Sodium 138 (136-145) mmol/L Potassium 4.3 D (3.5-5.1) mmol/L Chloride 101 (98-107) mmol/L Carbon Dioxide 31 (21-32) mmol/L Anion Gap 5.0 (3-11) BUN 18 (7-18) mg/dl Creatinine 0.80 (0.6-1.2) mg/dl Est Cr Clr Drug Dosing 53.6 ml/min Est GFR ( Amer) 83.6 Est GFR (Non-Af Amer) 72.1 BUN/Creatinine Ratio 22.3 H (10-20) Glucose 98 (70-99) mg/dl Calcium 9.7 (8.5-10.1) mg/dl Magnesium 2.3 (1.8-2.4) mg/dl Microbiology 05/15/19 07:30 Gram Stain - Final Abdomen Deep Wound Culture - Preliminary Gram negative bacilli 05/15/19 03:31 Aerobic Blood Culture - Preliminary Blood No growth in Aerobic bottle after 24 hours. Anaerobic Blood Culture - Preliminary No growth in Anaerobic bottle after 24 hours. 05/15/19 03:17 Aerobic Blood Culture - Preliminary Blood No growth in Aerobic bottle after 24 hours. Anaerobic Blood Culture - Preliminary No growth in Anaerobic bottle after 24 hours.
[2019-05-16] MEDS: ENOXAPARIN INJ 30 MG/0.3 ML SYR SQ SCH (11:34)
--- NOTE | 2019-05-16 18:34 | Hospitalist Progress Note ---
Date of Service May 16, 2019 Assessment & Plan (1) Hypoxia: Fever -- possible wound infection? -- wound culture: Gram-negative bacilli CXR: No pneumonia -- afebrile since this AM continue Dapto + Cefepime Follow-up cultures (1) Hypoxia: (2) Cough: secondary to Pleural Effusion off oxygen supplement Hold p.o. Lasix now (3) Parastomal hernia with obstruction and without gangrene: S/P s/p repair of parastomal incarcerated hernia by Dr Teixeira Post op developed ileus. Is NPO and has NG tube -- improving , diet advanced further today (4) Hypokalemia: replaced with IV and PO K replaced Mg --Zoloft (5) Ulcerative colitis: -- H/O ulcerative colitis, h/o subtotal colectomy, end ileostomy (6) Polymyalgia rheumatica: prednisone 5mg daily (7) CKD (chronic kidney disease), stage III: Baseline Cr: 0.9 Renal functions stable Avoid nephrotoxic agents when possible DVT Prophylaxis -Lovenox SQ per general surgery Thank you for this consultation. We will follow the patient with you during their hospital stay. [facility] via pager @ [phone]. Subjective Follow-up for postoperative fever Seen sitting up in bed, comfortable, in good spirits Afebrile overnight Patient feels improved today compared to yesterday Tolerating soft diet, good ostomy output Minimal pain over the surgical incision No cough, no headache, no abdominal pain no problems with urination No other symptoms Review of Systems Review of Systems: All systems reviewed & are unremarkable except as noted in HPI & below Physical Exam Physical Exam: General- oriented x 3, not in distress, speaks in sentences with no effort or accessory muscle use Eyes- anicteric Neck- no JVD Lungs- clear breath sounds bilaterally, no crackles, no wheezing bilaterally Heart- normal rate, regular rhythm; no murmurs Abdomen- normal bowel sounds, nondistended, soft, nontender Surgical incision site: Valentina in place, less erythema around the incision site, minimal serosanguineous discharge noted No warmth or tenderness on palpation around the incision site Extremities- no pretibial edema, no calf tenderness Neuro- alert, oriented x 3; no gross focal neurologic deficits Skin- warm & dry Results & Data Vital Signs (Past 12 Hours) Vital Signs Temp Pulse Resp BP Pulse Ox 05/16/19 15:09 37.1 C 88 17 124/71 92 05/16/19 07:25 37.3 C 98 H 18 122/80 94 Laboratory Results Laboratory Results - last 24 hr 05/16/19 05/16/19 07:40 07:45 Sodium 138 Potassium 4.3 D Chloride 101 Carbon Dioxide 31 Anion Gap 5.0 BUN 18 Creatinine 0.80 Est Cr Clr Drug Dosing 53.6 Est GFR ( Amer) 83.6 Est GFR (Non-Af Amer) 72.1 BUN/Creatinine Ratio 22.3 H Glucose 98 Calcium 9.7 Magnesium 2.3
[2019-05-16] MEDS: LACTOBACILLUS ACIDOPHILUS (FLORANEX) TAB PO SCH (21:35)
[2019-05-17] MEDS: DAPTOmycin 275 MG in SYRINGE 0 ML IV SCH (05:34)
[2019-05-17] MEDS: CEFEPIME 2,000 MG in SYRINGE 7.5 ML IV SCH (05:36)
[2019-05-17 07:35] LABS: Creatinine Clr Calc Pharmacy 48.7 ml/min; Est GFR (African American) 74.5; Est GFR (Non-African American) 64.3
[2019-05-17] MEDS: predniSONE 5 MG TAB PO SCH (08:31)
[2019-05-17] MEDS: LACTOBACILLUS ACIDOPHILUS (FLORANEX) TAB PO SCH ×4 (08:31→21:03)
--- NOTE | 2019-05-17 09:09 | Surgery Progress Note ---
Date of Service May 17, 2019 Assessment & Plan (1) Parastomal hernia with obstruction and without gangrene: doing well ostomy working regulr diet Present on Admission?: Yes (2) Wound infection: wound opened begin dressings IV abx Present on Admission?: No Subjective Postoperative day #9 status post reduction repair of incarcerated parastomal hernia with biologic mesh -now with wound infection, midline incision opened, begin dressings -preliminary culture with gram negative bacilli and gram positive cocci and bacilli, sensitivities pending -afebrile -feels well -eating well -ambulating -ostomy functioning well Review of Systems Constitutional: no fever and no chills Respiratory: no dyspnea Cardiovascular: no chest pain Gastrointestinal: no abdominal pain, no nausea and no vomiting Genitourinary: no dysuria Musculoskeletal: no back pain Physical Exam Constitutional: well developed and well nourished Neck: trachea midline Respiratory: normal respiratory effort, lungs clear to auscultation Cardiovascular: RRR, no murmur, no edema Gastrointestinal (Abdomen): Inspection/Auscultation: normal bowel sounds; abdomen not distended Percussion/Palpation: + abdomen tender (mild) Musculoskeletal: Head/Neck/Chest: normocephalic and head atraumatic Skin: no rashes, warm and dry Results & Data Vital Signs (Past 12 Hours) Vital Signs Temp Pulse Pulse Resp BP BP Pulse Ox 05/17/19 07:36 37.0 C 77 15 112/76 95 05/16/19 23:15 37.1 C 87 18 113/73 95
[2019-05-17] MEDS: FAMOTIDINE 20 MG TAB PO SCH (09:18)
[2019-05-17] MEDS: ENOXAPARIN INJ 30 MG/0.3 ML SYR SQ SCH (12:19)
[2019-05-17] MEDS ORDERED: ALBUTEROL HFA 8 GM INHALER INH PRN (17:00)
--- NOTE | 2019-05-17 17:05 | Hospitalist Progress Note ---
Date of Service May 17, 2019 Assessment & Plan (1) Wound infection: (1) Fever -- possible wound infection? -- wound culture: E coli, Strep CXR: No pneumonia -- tmax 37.8 wound improving d/c Dapto, continue Cefepime Follow-up cultures will consult ID (2) Cough, Hypoxia secondary to Pleural Effusion off oxygen supplement Hold p.o. Lasix now- patient euvolemic (3) Parastomal hernia with obstruction and without gangrene: S/P s/p repair of parastomal incarcerated hernia by Dr Teixeira Post op developed ileus. Is NPO and has NG tube -- improving , diet advanced further today (4) Hypokalemia: replaced with IV and PO K replaced Mg --Zoloft (5) Ulcerative colitis: -- H/O ulcerative colitis, h/o subtotal colectomy, end ileostomy (6) Polymyalgia rheumatica: prednisone 5mg daily (7) CKD (chronic kidney disease), stage III: Baseline Cr: 0.9 Renal functions stable Avoid nephrotoxic agents when possible DVT Prophylaxis -Lovenox SQ per general surgery Thank you for this consultation. We will follow the patient with you during their hospital stay. You can reach a member of the [facility] Hospitalist Team 18/12 via pager @ [phone]. Subjective ff up for fever, post op seen resting in bed, comfortable not in distress states she feels fine overall tmax 37.8 no cough, SOB no pain over the surgical site denies other symptoms Review of Systems Review of Systems: All systems reviewed & are unremarkable except as noted in HPI & below Physical Exam Physical Exam: General- oriented x 3, not in distress, speaks in sentences with no effort or accessory muscle use Eyes- anicteric Neck- no JVD Lungs- clear breath sounds bilaterally Heart- normal rate, regular rhythm; no murmurs Abdomen- normal bowel sounds, nondistended, soft, nontender surgical wound: page in place, no active discharge, less erythema, no tenderness/warmth Extremities- no pretibial edema, no calf tenderness Neuro- alert, oriented x 3; no gross focal neurologic deficits Skin- warm & dry Results & Data Vital Signs (Past 12 Hours) Vital Signs Temp Pulse Resp BP Pulse Ox 05/17/19 15:24 36.8 C 82 16 115/75 93 05/17/19 07:36 37.0 C 77 15 112/76 95
[2019-05-18] MEDS: CEFEPIME 2,000 MG in SYRINGE 7.5 ML IV SCH (05:50)
[2019-05-18 07:22] LABS: Creatinine Clr Calc Pharmacy 49.9 ml/min; Est GFR (African American) 76.6; Est GFR (Non-African American) 66.1
[2019-05-18] MEDS: FAMOTIDINE 20 MG TAB PO SCH (08:39)
[2019-05-18] MEDS: LACTOBACILLUS ACIDOPHILUS (FLORANEX) TAB PO SCH ×4 (08:39→21:30)
[2019-05-18] MEDS: predniSONE 5 MG TAB PO SCH (08:39)
[2019-05-18] MEDS ORDERED: DAPTOMYCIN CONSULT ACTIVE PRN (11:48)
[2019-05-18] MEDS: ENOXAPARIN INJ 40 MG/0.4 ML SYR SQ SCH (12:29)
--- NOTE | 2019-05-18 12:37 | Surgery Progress Note ---
Date of Service May 18, 2019 Assessment & Plan (1) Parastomal hernia with obstruction and without gangrene: good progress with diet and activity ostomy working Present on Admission?: Yes (2) Wound infection: Iv abx dressings Subjective POD #11 doing well wound Cx- E.Coli/enterococcus on cefipime Review of Systems Constitutional: no fever and no chills Respiratory: no dyspnea Cardiovascular: no chest pain Gastrointestinal: no abdominal pain, no nausea and no vomiting Musculoskeletal: no back pain Physical Exam Constitutional: well developed and well nourished Neck: trachea midline Respiratory: normal respiratory effort, lungs clear to auscultation Cardiovascular: RRR, no murmur, no edema Gastrointestinal (Abdomen): Inspection/Auscultation: abdomen normal to inspection and normal bowel sounds; abdomen not distended Percussion/Palpation: abdomen nontender ostomy working; wound granulating Musculoskeletal: Head/Neck/Chest: normocephalic and head atraumatic Skin: no rashes, warm and dry Results & Data Vital Signs (Past 12 Hours) Vital Signs Temp Pulse Resp BP Pulse Ox 05/18/19 07:32 37.0 C 71 15 109/69 95
[2019-05-18] MEDS: DAPTOmycin 200 MG in SYRINGE 0 ML IV SCH ×2 (12:50→13:37)
--- NOTE | 2019-05-18 14:52 | Hospitalist Progress Note ---
Date of Service May 18, 2019 Assessment & Plan (1) Wound infection: (1) Fever -- possible wound infection -- wound culture: E coli, Enterococcus faecalis CXR: No pneumonia --Afebrile since yesterday wound seems to improve Restart daptomycin, continue Cefepime ID consulted (2) Cough, Hypoxia secondary to Pleural Effusion off oxygen supplement Hold p.o. Lasix now- patient euvolemic (3) Parastomal hernia with obstruction and without gangrene: S/P s/p repair of parastomal incarcerated hernia by Dr Teixeira Post op developed ileus. Is NPO and has NG tube -- improving , diet advanced, tolerating well so far (4) Hypokalemia: replaced with IV and PO K replaced Mg --Zoloft (5) Ulcerative colitis: -- H/O ulcerative colitis, h/o subtotal colectomy, end ileostomy (6) Polymyalgia rheumatica: prednisone 5mg daily (7) CKD (chronic kidney disease), stage III: Baseline Cr: 0.9 Renal functions stable Avoid nephrotoxic agents when possible DVT Prophylaxis -Lovenox SQ per general surgery Thank you for this consultation. We will follow the patient with you during their hospital stay. You can reach a member of the [facility] Hospitalist Team 18/12 via pager @ [phone]. Subjective Follow-up for postop fever Sitting up in bed, having lunch In good spirits, comfortable Afebrile overnight She feels okay overall Denies pain over the surgical site No fevers or chills No other symptoms Review of Systems Review of Systems: All systems reviewed & are unremarkable except as noted in HPI & below Physical Exam 2 Physical Exam: General- oriented x 3, not in distress, speaks in sentences with no effort or accessory muscle use Eyes- anicteric Neck- no JVD Lungs- clear breath sounds bilaterally no rales, wheezing Heart- normal rate, regular rhythm; no murmurs Abdomen- normal bowel sounds, nondistended, soft, nontender Surgical incision-page in place, no discharge, no erythema improving, no tenderness Extremities- no pretibial edema, no calf tenderness Neuro- alert, oriented x 3; no gross focal neurologic deficits Skin- warm & dry Results & Data Vital Signs (Past 12 Hours) Vital Signs Temp Pulse Resp BP Pulse Ox 05/18/19 07:32 37.0 C 71 15 109/69 95 Laboratory Results Laboratory Results - last 24 hr 05/18/19 06:12 Creatinine 0.86 Est Cr Clr Drug Dosing 49.9 Est GFR ( Amer) 76.6 Est GFR (Non-Af Amer) 66.1
[2019-05-18 17:00] LABS: BUN Creatinine Ratio 28.6 (10-20); Blood Urea Nitrogen 24 mg/dl (7-18); Calcium 9.2 mg/dl (8.5-10.1); Chloride 105 mmol/L (98-107); Glucose 80 mg/dl (70-99); Potassium 4.4 mmol/L (3.5-5.1); Sodium 138 mmol/L (136-145)
[2019-05-19] MEDS: CEFEPIME 2,000 MG in SYRINGE 7.5 ML IV SCH (05:32)
[2019-05-19] MEDS: predniSONE 5 MG TAB PO SCH (08:28)
[2019-05-19] MEDS: LACTOBACILLUS ACIDOPHILUS (FLORANEX) TAB PO SCH ×4 (08:28→20:40)
[2019-05-19] MEDS: FAMOTIDINE 20 MG TAB PO SCH (09:03)
--- NOTE | 2019-05-19 10:35 | Infectious Disease Consult ---
Date of Consultation May 19, 2019 Assessment & Plan (1) Wound infection: pt will require prolonged course of abx, suspect 4 weeks post d/c. can continue on current course or can change to cefdinir 300mg po bid and zyvox 600mg bid if she prefers po abx. options limited due to multiple allergies. can follow with ID post d/c from hospital. continue local wound care. (2) Ulcerative colitis: History of Present Illness Attending Physician: Frantz Teixeira MD pt admitted several days ago with abd pain, 05/08 ct abd showed obstructing and henia, went to OR for repair, now remains with open abd wound, 05/15 cultures growing E.coli and garcia sensitive E. faecalis. she has been on cefepime and dapto and tolerating well. she has several abx allergies. no f.c, wbc 10. creat 0.8, she states she is underoing daily packing change and tolerating well. no abd pain, no n/v/d. ostomy functioning. eating well. no cp, sob, cough. Allergies Allergy/AdvReac Type Severity Reaction Status Date / Time Penicillins Allergy Severe Hives Verified 05/08/19 02:44 Cipro Allergy Intermediate SEVERE RASH Verified 01/24/14 12:55 ciprofloxacin Allergy Intermediate SEVERE RASH Verified 05/08/19 02:44 adhesive Allergy Mild Rash Verified 05/08/19 02:44 ondansetron [From Zofran] Allergy Mild Rash Verified 05/08/19 02:45 codeine Allergy Unknown n/v Verified 05/08/19 02:44 pinpoint pupils infliximab Allergy Unknown Unknown Verified 05/08/19 02:44 Quinolones Allergy Unknown Unknown Verified 05/08/19 02:44 tramadol Allergy Unknown bradycardia Verified 05/08/19 02:44 vancomycin Allergy Unknown Maris Verified 04/29/19 12:41 syndrome NONSTEROIDAL Allergy Unknown NAPROXEN Uncoded 04/19/19 12:54 Home Medications Home Medications Medication Instructions Recorded Confirmed Type aspirin 81 mg tablet,delayed 81 mg PO DAILY 04/19/19 05/08/19 History release omeprazole magnesium 20 mg 20 mg PO DAILY 04/19/19 05/08/19 History tablet,delayed release potassium chloride 10 mEq 10 meq PO 3XWK 04/19/19 05/08/19 History capsule,extended release Arthritis Extra Strength 2 tabs PO BID 05/08/19 05/08/19 History furosemide [Lasix] 20 mg PO 3XWK 05/08/19 05/12/19 History prednisone 5 mg PO DAILY 05/08/19 05/08/19 History rosuvastatin 5 mg PO DAILY 05/08/19 05/08/19 History turmeric root extract 1,053 mg PO BID 05/08/19 05/08/19 History Patient History Medical History CKD (chronic kidney disease), stage III Dyslipidemia Herpes zoster Missed Parastomal hernia with obstruction and without gangrene Ulcerative colitis Surgical History H/O ileostomy H/O oral surgery H/O ventral hernia repair History of colon surgery S/P appendectomy S/P colonoscopy S/P dilation and curettage S/P repair of ventral hernia parastomal with placement of biologic mesh S/P tonsillectomy and adenoidectomy S/P tubal ligation Family History Grandmother (Paternal) Breast cancer Grandmother (Maternal) Colorectal cancer Father Rheumatic heart disease Mother Thyroid cancer Social History Preferred Language: Slovenian Communication Ability: Effective 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 Beliefs That Will Affect Care: None marital status: / Current Living Situation: Alone Other Information That Helps Us Care for You: No Feels Safe at Home: Yes Safety Concerns: Feels Safe At This Time Smoking Status: Former smoker Hx Alcohol Use: No Hx Substance Use: No Review of Systems Review of Systems: All systems reviewed & are unremarkable except as noted in HPI & below Physical Exam Constitutional: WD/WN, vitals as above Eyes: PERRL, conjunctivae normal, anicteric sclerae ENMT: external ear and nose normal, oropharynx normal Neck: normal visual inspection Respiratory: normal respiratory effort, lungs clear to auscultation Cardiovascular: RRR, no murmur, no edema Gastrointestinal (Abdomen): normal bowel sounds, soft, nontender, no hepatosplenomegaly Musculoskeletal: no cyanosis or clubbing, extremities motor strength 5/5 Skin: no rashes, warm and dry + wound (disal wound open, packing in place, drainage noted, page intact, ) no surrounding erythema. Psychiatric: A+Ox3, euthymic affect Results & Data Vital Signs (Past 12 Hours) Vital Signs Temp Pulse Resp BP Pulse Ox 05/19/19 07:27 37.0 C 77 18 118/81 97 Laboratory Results Microbiology 05/15/19 07:30 Abdomen Gram Stain - Final 05/15/19 07:30 Abdomen Deep Wound Culture - Final Escherichia coli Enterococcus faecalis 05/15/19 03:31 Blood Aerobic Blood Culture - Preliminary No growth in Aerobic bottle after 48 hours. 05/15/19 03:31 Blood Anaerobic Blood Culture - Preliminary No growth in Anaerobic bottle after 48 hours. 05/15/19 03:17 Blood Aerobic Blood Culture - Preliminary No growth in Aerobic bottle after 48 hours. 05/15/19 03:17 Blood Anaerobic Blood Culture - Preliminary No growth in Anaerobic bottle after 48 hours. PG Care Time/CCT Total # of Minutes Spent Total Time Spent with Patient: Total time spent is greater than 50% in coordination of care (as documented) at patient's floor/unit and/or counseling patient:
--- NOTE | 2019-05-19 10:49 | Infectious Disease Consult ---
Date of Consultation May 19, 2019 History of Present Illness Attending Physician: Frantz Teixeira MD pt admitted with vomitting, weakness. has h/o neuroendocrine tumor. on chronic tpn via port right chest, has been in place for years per patient. no pain at port site, no redness, no f/c at home. found to have obstruction, had colonoscopy with stenting on 05/16, tolerated well. Blood cultures done on 05/16, 1/2 sets growing S. intermedius. no sensitivities pending. repeat cultur es done today, pending. has ngt in with bilious drainage, no cp, sob, cough, no gu symptoms. UA negative. afebrile since admission, wbc 9, creat 1.3, currenlty on ctx and clinda, tolerating well. ID consulted for + blood cultures. Allergies Allergy/AdvReac Type Severity Reaction Status Date / Time Penicillins Allergy Severe Hives Verified 05/08/19 02:44 Cipro Allergy Intermediate SEVERE RASH Verified 01/24/14 12:55 ciprofloxacin Allergy Intermediate SEVERE RASH Verified 05/08/19 02:44 adhesive Allergy Mild Rash Verified 05/08/19 02:44 ondansetron [From Zofran] Allergy Mild Rash Verified 05/08/19 02:45 codeine Allergy Unknown n/v Verified 05/08/19 02:44 pinpoint pupils infliximab Allergy Unknown Unknown Verified 05/08/19 02:44 Quinolones Allergy Unknown Unknown Verified 05/08/19 02:44 tramadol Allergy Unknown bradycardia Verified 05/08/19 02:44 vancomycin Allergy Unknown Maris Verified 04/29/19 12:41 syndrome NONSTEROIDAL Allergy Unknown NAPROXEN Uncoded 04/19/19 12:54 Home Medications Home Medications Medication Instructions Recorded Confirmed Type aspirin 81 mg tablet,delayed 81 mg PO DAILY 04/19/19 05/08/19 History release omeprazole magnesium 20 mg 20 mg PO DAILY 04/19/19 05/08/19 History tablet,delayed release potassium chloride 10 mEq 10 meq PO 3XWK 04/19/19 05/08/19 History capsule,extended release Arthritis Extra Strength 2 tabs PO BID 05/08/19 05/08/19 History furosemide [Lasix] 20 mg PO 3XWK 05/08/19 05/12/19 History prednisone 5 mg PO DAILY 05/08/19 05/08/19 History rosuvastatin 5 mg PO DAILY 05/08/19 05/08/19 History turmeric root extract 1,053 mg PO BID 05/08/19 05/08/19 History Patient History Medical History CKD (chronic kidney disease), stage III Dyslipidemia Herpes zoster Missed Parastomal hernia with obstruction and without gangrene Ulcerative colitis Surgical History H/O ileostomy H/O oral surgery H/O ventral hernia repair History of colon surgery S/P appendectomy S/P colonoscopy S/P dilation and curettage S/P repair of ventral hernia parastomal with placement of biologic mesh S/P tonsillectomy and adenoidectomy S/P tubal ligation Family History Grandmother (Paternal) Breast cancer Grandmother (Maternal) Colorectal cancer Father Rheumatic heart disease Mother Thyroid cancer Social History Preferred Language: Wallisian Communication Ability: Effective 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
[2019-05-19] MEDS: DAPTOmycin 200 MG in SYRINGE 0 ML IV SCH (13:21)
[2019-05-19] MEDS: ENOXAPARIN INJ 40 MG/0.4 ML SYR SQ SCH (13:22)
--- NOTE | 2019-05-19 17:19 | Surgery Progress Note ---
Date of Service May 19, 2019 Assessment & Plan (1) Parastomal hernia with obstruction and without gangrene: Hernia repair is doing well on postoperative day 12 Ostomy is functioning Tolerating regular diet (2) Wound infection: Continue local wound care and antibiotics Plan possibly for discharge tomorrow with home nursing for help with wound care Appreciate ID opinion regarding oral antibiotics Subjective Postoperative day #12, status post reduction repair of incarcerated ventral hernia Has developed wound infection That was opened and drained Being irrigated and packed daily Appreciate infectious disease opinion Feels very well Ileostomy is functioning well with formed output Tolerating regular diet without nausea or vomiting Physical Exam Gastrointestinal (Abdomen): Inspection/Auscultation: abdomen not distended Percussion/Palpation: abdomen soft; abdomen nontender and abdomen not rigid Incision is open. There is some drainage. The remainder of the incision appears healthy Results & Data Vital Signs (Past 12 Hours) Vital Signs Temp Pulse Resp BP Pulse Ox 05/19/19 15:08 36.9 C 84 16 109/74 94 05/19/19 07:27 37.0 C 77 18 118/81 97
--- NOTE | 2019-05-19 19:09 | Hospitalist Progress Note ---
Date of Service May 19, 2019 Assessment & Plan (1) Wound infection: (1) Fever -- possible wound infection -- wound culture: E coli, Enterococcus faecalis CXR: No pneumonia --Afebrile x2 days wound improving ID consulted, recommend to continue daptomycin and ceftriaxone while inpatient, transition to cefdinir and linezolid upon discharge (2) Cough, Hypoxia secondary to Pleural Effusion off oxygen supplement Hold p.o. Lasix now- patient euvolemic (3) Parastomal hernia with obstruction and without gangrene: S/P s/p repair of parastomal incarcerated hernia by Dr Teixeira Post op developed ileus. Is NPO and has NG tube -- improving , diet advanced, tolerating well so far (4) Hypokalemia: replaced with IV and PO K replaced Mg --Zoloft (5) Ulcerative colitis: -- H/O ulcerative colitis, h/o subtotal colectomy, end ileostomy (6) Polymyalgia rheumatica: prednisone 5mg daily (7) CKD (chronic kidney disease), stage III: Baseline Cr: 0.9 Renal functions stable Avoid nephrotoxic agents when possible DVT Prophylaxis -Lovenox SQ per general surgery Thank you for this consultation. We will follow the patient with you during their hospital stay. You can reach a member of the [facility] Hospitalist Team 18/12 via pager @ [phone]. Subjective Follow-up for surgical wound infection Seen resting in bed, comfortable, in good spirits Denies pain over the surgical site Tolerating solids well, good ostomy output Denies other symptoms Review of Systems Review of Systems: All systems reviewed & are unremarkable except as noted in HPI & below Physical Exam Physical Exam: General- oriented x 3, not in distress, speaks in sentences with no effort or accessory muscle use Eyes- anicteric Neck- no JVD Lungs- clear breath sounds bilaterally, no crackles Heart- normal rate, regular rhythm; no murmurs Abdomen- normal bowel sounds, nondistended, soft, nontender Surgical incision site -page in place, no active discharge noted, erythema and tenderness/firmness resolved Extremities- no pretibial edema, no calf tenderness Neuro- alert, oriented x 3; no gross focal neurologic deficits Skin- warm & dry Results & Data Vital Signs (Past 12 Hours) Vital Signs Temp Pulse Resp BP Pulse Ox 05/19/19 15:08 36.9 C 84 16 109/74 94 05/19/19 07:27 37.0 C 77 18 118/81 97
[2019-05-20] MEDS ORDERED: cefTRIAXone SODIUM 2,000 MG in DEXTROSE 5% 50 ML IV SCH (06:00)
[2019-05-20 07:08] LABS: Creatinine Clr Calc Pharmacy 54.8 ml/min; Est GFR (African American) 88.9; Est GFR (Non-African American) 76.7
[2019-05-20] MEDS: predniSONE 5 MG TAB PO SCH (08:36)
[2019-05-20] MEDS: FAMOTIDINE 20 MG TAB PO SCH (08:36)
[2019-05-20] MEDS: LACTOBACILLUS ACIDOPHILUS (FLORANEX) TAB PO SCH ×2 (08:36→11:33)
--- NOTE | 2019-05-20 09:56 | Surgery Progress Note ---
Date of Service May 20, 2019 Assessment & Plan (1) Wound infection: Wound infection appears to be healing. Patient is on appropriate antibiotics Patient can go home on oral antibiotics as per infectious disease Efforts are being made for home care relative to irrigation and packing of wound which should be performed daily (2) Parastomal hernia with obstruction and without gangrene: Postoperative day #13 status post repair of incarcerated parastomal hernia Doing well from that standpoint Tolerating regular diet and ostomy is functioning well Subjective Postoperative day #13, status post reduction and repair of incarcerated parastomal hernia Developed wound infection with enterococcus and E. coli presently on antibiotics Feels very well Denies pain Eating regular diet tolerating that without nausea and vomiting Ileostomy functioning well Physical Exam Gastrointestinal (Abdomen): Percussion/Palpation: abdomen soft; abdomen nontender Ileostomy is functioning Erythema of the skin is completely resolved Deep tissue within the open area is pink and healthy-appearing. Results & Data Vital Signs (Past 12 Hours) Vital Signs Temp Pulse Resp BP Pulse Ox 05/20/19 07:00 36.6 C 81 18 112/76 94 05/19/19 23:00 36.5 C 82 18 114/79 95
[2019-05-20] MEDS: DAPTOmycin 200 MG in SYRINGE 0 ML IV SCH (11:33)
[2019-05-20] MEDS: ENOXAPARIN INJ 40 MG/0.4 ML SYR SQ SCH (11:33)
--- NOTE | 2019-05-20 12:37 | Hospitalist Progress Note ---
Date of Service delayed entry May 20, 2019 Assessment & Plan (1) Wound infection: (1) Wound infection: (1) Feverwound infection -- wound culture: E coli, Enterococcus faecalis CXR: No pneumonia --Afebrile x 3 days wound improving ID consulted, recommend to continue daptomycin and ceftriaxone while inpatient, transition to cefdinir and linezolid upon discharge -- ok for discharge from medical standpoint (2) Cough, Hypoxia secondary to Pleural Effusion off oxygen supplement resume usual Lasix PO 3x a week (3) Parastomal hernia with obstruction and without gangrene: S/P s/p repair of parastomal incarcerated hernia by Dr Teixeira Post op developed ileus. Is NPO and has NG tube -- improved , diet advanced, tolerating well so far (4) Hypokalemia: replaced with IV and PO K replaced Mg (5) Ulcerative colitis: -- H/O ulcerative colitis, h/o subtotal colectomy, end ileostomy (6) Polymyalgia rheumatica: prednisone 5mg daily (7) CKD (chronic kidney disease), stage III: Baseline Cr: 0.9 Renal functions stable Avoid nephrotoxic agents Thank you for this consultation. We will follow the patient with you during their hospital stay. You can reach a member of the [facility] Hospitalist Team 18/12 via pager @ [phone]. Subjective ff up for surgical wound infection seen resting in bed, comfortable, in good spirits no pain over the surgical site denies SOB, chest pain, dizziness, chills states she is ready and would like to be discharged today Review of Systems Review of Systems: All systems reviewed & are unremarkable except as noted in HPI & below Physical Exam Physical Exam: General- oriented x 3, not in distress, speaks in sentences with no effort or accessory muscle use Eyes- anicteric Neck- no JVD Lungs- clear breath sounds bilaterally Heart- normal rate, regular rhythm; no murmurs Abdomen- normal bowel sounds, nondistended, soft, nontender surgical site: no erythema, discharge, tenderness, discharge Extremities- no pretibial edema, no calf tenderness Neuro- alert, oriented x 3; no gross focal neurologic deficits Skin- warm & dry Results & Data Vital Signs (Past 12 Hours) Vital Signs Temp Pulse Pulse Pulse Resp BP BP 05/20/19 10:58 36.6 C 96 H 87 81 18 112/76 115/71 05/20/19 07:00 36.6 C 81 18 112/76 Pulse Ox 05/20/19 10:58 94 05/20/19 07:00 94 Laboratory Results noted and reviewed
== END 2019-05-20 13:24 | disposition home or self-care (01) | DRG 330 ==
LOC: ED 02:13 → 3W 07:30 → ASU 07:30 → 3W 12:28

== ENCOUNTER 2019-06-14 15:43 | Inpatient (IN) ==
[2019-06-14] MEDS ORDERED: DiphenhydrAMINE HCL 50 MG/ML VIAL IV STA (15:54)
[2019-06-14] MEDS ORDERED: SODIUM CHLORIDE 0.9% 500 ML IV ONE (15:54)
[2019-06-14] MEDS ORDERED: PROCHLORPERAZINE 1 ML IV ONE (15:54)
[2019-06-14] MEDS ORDERED: FAMOTIDINE 20MG IV PUSH 20 MG/5 ML SYR IV STA (15:54)
[2019-06-14 16:16] LABS: Hematocrit (blood only) 34.7 % (37-47); Hemoglobin 11.5 g/dL (12.0-16.0); Mean Corpuscular Hemoglobin 30.9 pg (25-34); Mean Corpuscular Hgb Conc 33.1 g/dL (32-36); Mean Corpuscular Volume 93.3 fL (80-100); RDW Coefficient of Variation 13.7 % (11.5-14.5); RDW Standard Deviation 46.6 fL (36.4-46.3); Red Blood Count 3.72 M/uL (4.2-5.4); White Blood Count 4.68 K/uL (4.8-10.8)
[2019-06-14 16:23] LABS: Alanine Aminotransferase 33 U/L (12-78); Albumin Level 3.8 gm/dl (3.4-5.0); Aspartate Aminotransferase 21 U/L (15-37); Blood Urea Nitrogen 18 mg/dl (7-18); Calcium 9.6 mg/dl (8.5-10.1); Carbon Dioxide 24 mmol/L (21-32); Chloride 103 mmol/L (98-107); Creatinine Clr Calc Pharmacy 34.2 ml/min; Est GFR (African American) 50.7; Est GFR (Non-African American) 43.7; Glucose 136 mg/dl (70-99); Magnesium 1.4 mg/dl (1.8-2.4); Potassium 3.7 mmol/L (3.5-5.1); Sodium 139 mmol/L (136-145)
[2019-06-14 16:27] LABS: Partial Thromboplastin Ratio 0.8; Partial Thromboplastin Time 20.7 Seconds (21.0-31.0); Prothrombin Time 10.7 Seconds (9.0-12.0)
[2019-06-14 16:34] LABS: Albumin Globulin Ratio 1.1 (0.9-2); Alkaline Phosphatase 58 U/L (45-117); Bilirubin,Total 0.4 mg/dl (0.2-1); Globulin 3.4 gm/dl (2.5-4.0); Phosphorus 2.2 mg/dl (2.5-4.9); Total Protein 7.2 gm/dl (6.4-8.2); Troponin I < 0.015 ng/ml (0-0.045)
[2019-06-14 16:41] LABS: Basophils # (auto) 0.04 K/uL (0-0.2); Basophils % (auto) 0.9 %; Eosinophils % (auto) 4.3 %; Giant Platelets 1+; Lymphocytes # (auto) 1.07 K/uL (1.2-3.4); Lymphocytes % (auto) 22.9 %; Mean Platelet Volume 11.6 fL (7.4-10.4); Monocytes # (auto) 0.35 K/uL (0.11-0.59); Monocytes % (auto) 7.5 %; Neutrophils # (auto) 3.02 K/uL (1.4-6.5); Neutrophils % (auto) 64.4 %; Platelet Count 73 K/uL (130-400); Platelet Estimate Decreased (Normal)
[2019-06-14 16:46] LABS: T4 Free Thyroxine 1.14 ng/dl (0.8-1.6)
--- NOTE | 2019-06-14 17:01 | XRay Report ---
XR chest 1V portable HISTORY: 73 years-old Female SEPSIS acute sepsis COMPARISON: Chest radiograph 05/15/2018 TECHNIQUE: Portable AP view of the chest FINDINGS: Cardiac silhouette is mildly enlarged, unchanged. Mediastinal contours are within normal limits. Ther e is no pneumothorax, large pleural effusion or overt pulmonary edema. Unchanged blunting of the left costophrenic angle. Degenerative changes of the shoulders and spine. IMPRESSION: No acute process. ACT 112: Negative or not required by law. The above report was generated using voice recognition software. It may contain grammatical, syntax o r spelling errors. Electronically signed by: Rosalio Jasso M.D. 06/14/2019 5:00 PM
[2019-06-14] MEDS ORDERED: IOVERSOL 100ml IV PRN (17:03)
[2019-06-14] MEDS ORDERED: POTASSIUM PHOS 3 MMOL/1 ML INFUSION IV STA (17:05)
--- NOTE | 2019-06-14 17:10 | Emergency Department Note ---
Entered by Zohreh Taylor acting as a scribe for History of Present Illness General Chief complaint: Illness Time Seen by Provider: 06/14/19 15:45 Source: patient Mode of arrival: EMS Limitations: no limitations History of Present Illness Provider complaint: Vomiting Onset (ago): day(s) (yesterday morning) Location: mouth Radiation: non-radiation Pain Consistency: + other (persistent) Quality: + other (vomiting) Associated symptoms: + nausea/vomiting, + weakness and + other (Additional symptoms: gagging, inability to eat and drink, thick yellow phlegm in back of throat, sneezing, black-colored tongue. Denies: congestion); no fever/chills and no shortness of breath Treatments prior to arrival: none The patient is a 73 year old female with a history of an ileostomy placed 16 years ago, stage III CKD, dyslipidemia, ulcerative colitis, GERD, SBO, oral surgery, ventral hernia repair, appendectomy, and tubal ligation who presents to the Emergency Room with complaints of persistent vomiting starting yesterday morning. The patient reports that she has been on 2 antibiotics but was unable to take them last night and today secondary to vomiting. She explains that she still has 4.5 days left of her month-long course of antibiotics. She states she started vomiting after taking her morning dose of antibiotics yesterday, and she notes that her vomiting has been accompanied by weakness, nausea, gagging, and an inability to eat and drink. She expresses concern for the effect of dehydration on her kidney function. She also complains of thick yellow phlegm in the back of her throat and sneezing starting 5 days ago, in addition to a black- colored tongue, but she denies any fever, congestion, and shortness of breath. The patient indicates that this is the first time she has gotten sick since coming home from the hospital for a wound infection. She mentions that her incision site is sore and still has some page in it. She further states that her ileostomy has been working normally and that she lives alone. Home Medications Home Medications Medication Instructions Recorded Confirmed Type aspirin 81 mg tablet,delayed 81 mg PO DAILY 04/19/19 06/14/19 History release omeprazole magnesium 20 mg 20 mg PO DAILY 04/19/19 06/14/19 History tablet,delayed release potassium chloride 10 mEq 10 meq PO 3XWK PRN 04/19/19 06/14/19 History capsule,extended release furosemide [Lasix] 20 mg PO 3XWK 05/08/19 06/14/19 History prednisone 5 mg PO DAILY 05/08/19 06/14/19 History rosuvastatin 5 mg PO DAILY 05/08/19 06/14/19 History Lactobacillus rhamnosus GG 1 cap PO DAILY #30 cap 05/20/19 06/14/19 Rx [Culturelle] cefdinir 300 mg PO BID #56 cap 05/20/19 06/14/19 Rx linezolid [Zyvox] 600 mg PO BID 06/14/19 06/14/19 History Allergies Allergy/AdvReac Type Severity Reaction Status Date / Time Penicillins Allergy Severe Hives Verified 06/14/19 16:10 Cipro Allergy Intermediate SEVERE RASH Verified 01/24/14 12:55 ciprofloxacin Allergy Intermediate SEVERE RASH Verified 06/14/19 16:10 adhesive Allergy Mild Rash Verified 06/14/19 16:10 ondansetron [From Zofran] Allergy Mild Rash Verified 06/14/19 16:10 codeine Allergy Unknown n/v Verified 06/14/19 16:10 pinpoint pupils infliximab Allergy Unknown Unknown Verified 06/14/19 16:10 Quinolones Allergy Unknown Unknown Verified 06/14/19 16:10 tramadol Allergy Unknown bradycardia Verified 06/14/19 16:10 vancomycin Allergy Unknown Maris Verified 06/14/19 16:10 syndrome NONSTEROIDAL Allergy Unknown NAPROXEN Uncoded 06/14/19 16:10 Past Med/Surg History Medical History Clostridium difficile infection (Acute) Dyslipidemia GERD (gastroesophageal reflux disease) Herpes zoster Kidney stones (Resolved) Missed Osteoarthritis Parastomal hernia with obstruction and without gangrene S/p repair Polymyalgia rheumatica (Chronic) SBO (small bowel obstruction) (Acute) Ulcerative colitis Surgical History H/O ileostomy H/O oral surgery H/O ventral hernia repair History of colectomy (Resolved) S/P appendectomy S/P colonoscopy S/P dilation and curettage S/P repair of ventral hernia parastomal with placement of biologic mesh S/P tonsillectomy and adenoidectomy S/P tubal ligation Family History Grandmother (Paternal) Breast cancer Grandmother (Maternal) Colorectal cancer Father Rheumatic heart disease Mother Thyroid cancer Social History Preferred Language: Malawian Communication Ability: Effective Director Money Required: No Beliefs That Will Affect Care: None marital status: / Current Living Situation: Alone Other Information That Helps Us Care for You: No Feels Safe at Home: Yes Safety Concerns: Feels Safe At This Time Smoking Status: Former smoker Tobacco Type: cigarettes ; Smoking End Date: 2002 ; Second Hand Exposure: No ; Tobacco Cessation Education Requested by Patient: No Hx Alcohol Use: Yes Alcohol type: wine Hx Substance Use: No Review of Systems See HPI for pertinent positives & negatives. and A total of 10 systems reviewed and were otherwise negative Physical Exam Vital Signs Vital Signs - 24 hr 06/14/19 15:46 06/14/19 15:51 06/14/19 16:08 Temperature 36.4 C L Temperature Source Oral Pulse Rate 80 105 H 84 Pulse Rate [Apical] Pulse Rate from SpO2 Sensor 80 Respiratory Rate 20 20 20 Respiratory Effort / Characteristics Respiratory Depth Respiratory Pattern Blood Pressure 108/80 108/80 Blood Pressure [Right Arm] Blood Pressure Mean 83 89 Blood Pressure Mean [Right Arm] Pulse Oximetry 100 98 99 Oxygen Delivery Method Room Air Room Air Sepsis Recent Fever Within 48 Hours No Sepsis New/Unexplained Change in Mental Status No Sepsis Action Taken by Nursing No Action Required 06/14/19 16:20 06/14/19 16:30 06/14/19 16:38 Temperature Temperature Source Pulse Rate 78 85 Pulse Rate [Apical] 86 Pulse Rate from SpO2 Sensor 77 Respiratory Rate 24 20 20 Respiratory Effort / Characteristics Non-Labored Spontaneous Respiratory Depth Normal Respiratory Pattern Regular Blood Pressure Blood Pressure [Right Arm] 108/80 Blood Pressure Mean Blood Pressure Mean [Right Arm] 89 Pulse Oximetry 96 99 Oxygen Delivery Method Room Air Sepsis Recent Fever Within 48 Hours Sepsis New/Unexplained Change in Mental Status Sepsis Action Taken by Nursing 06/14/19 17:13 06/14/19 17:14 06/14/19 17:15 Temperature Temperature Source Pulse Rate 90 81 89 Pulse Rate [Apical] Pulse Rate from SpO2 Sensor 93 H 92 H Respiratory Rate 17 25 H 18 Respiratory Effort / Characteristics Respiratory Depth Respiratory Pattern Blood Pressure 143/85 H Blood Pressure [Right Arm] Blood Pressure Mean 111 Blood Pressure Mean [Right Arm] Pulse Oximetry 99 100 Oxygen Delivery Method Sepsis Recent Fever Within 48 Hours Sepsis New/Unexplained Change in Mental Status Sepsis Action Taken by Nursing 06/14/19 17:30 06/14/19 17:31 06/14/19 18:00 Temperature Temperature Source Pulse Rate 89 86 108 H Pulse Rate [Apical] Pulse Rate from SpO2 Sensor 90 86 108 H Respiratory Rate 19 17 16 Respiratory Effort / Characteristics Respiratory Depth Respiratory Pattern Blood Pressure 114/73 123/60 Blood Pressure [Right Arm] Blood Pressure Mean 92 90 Blood Pressure Mean [Right Arm] Pulse Oximetry 98 97 97 Oxygen Delivery Method Sepsis Recent Fever Within 48 Hours Sepsis New/Unexplained Change in Mental Status Sepsis Action Taken by Nursing 06/14/19 18:01 06/14/19 18:30 Temperature Temperature Source Pulse Rate 81 86 Pulse Rate [Apical] Pulse Rate from SpO2 Sensor 94 H 87 Respiratory Rate 23 22 Respiratory Effort / Characteristics Respiratory Depth Respiratory Pattern Blood Pressure 115/82 Blood Pressure [Right Arm] Blood Pressure Mean 91 Blood Pressure Mean [Right Arm] Pulse Oximetry 96 99 Oxygen Delivery Method Sepsis Recent Fever Within 48 Hours Sepsis New/Unexplained Change in Mental Status Sepsis Action Taken by Nursing GENERAL: Awake, alert, fatigued, uncomfortable-appearing, in no distress HENT: Normocephalic, atraumatic. Oropharynx with dry mucous membranes and otherwise unremarkable. EYES: Normal conjunctiva. Sclera non-icteric. NECK: Supple. No nuchal rigidity. FROM. No JVD. RESPIRATORY: CTAB. CARDIAC: Regular rate, normal rhythm. Extremities warm and well perfused. Pulses equal. ABDOMEN: Soft, non-distended. No tenderness to palpation. No rebound or guarding. No masses. Ostomy site clean, dry, and intact with adjacent surgical incision site without erythema, warmth, induration, or discharge. RECTAL: Deferred. MUSCULOSKELETAL: Chest examination reveals no tenderness. The back is symmetrical on inspection without obvious abnormality. There is no CVA tenderness to palpation. No joint edema. LOWER EXTREMITIES: Calves are equal size bilaterally and non-tender. No edema. No discoloration. NEURO: Normal sensorium. No sensory or motor deficits noted. SKIN: No rash or jaundice noted. Course Course 1548: The patient was evaluated in room B2, and a complete history and physical examination were performed. 1738: I reviewed the patient's case with Dr. Mejia - Iraj Lin. Dr. Mejia will evaluate the patient for further management. 1750: I spoke to Dr. Teixeira - Iraj Arzate on behalf of the adm itting team. He agrees that it is unlikely an abscess. He reports that he recently saw the patient in clinic and that her wound looked good at this time. He states that he will be available for inpatient team consult if needed. Consultations Consultation #1: I reviewed the patient's case with Dr. Mejia - Iraj Lin. Dr. Mejia will evaluate the patient for further management. Time: 17:38 Consultation #2: I spoke to Dr. Teixeira - Iraj Arzate on behalf of the admitting team. He agrees that it is unlikely an abscess. He reports that he recently saw the patient in clinic and that her wound looked good at this time. He states that he will be available for inpatient team consult if needed. Time: 17:50 Administered Medications Sodium Chloride (Nss 1000ml) 1,000 mls @ 100 mls/hr IV .Q10H JERE Stop: 06/15/19 05:46 Last Admin: 06/14/19 20:12 Dose: 100 mls/hr Documented by: [id number] Discontinued Medications Diphenhydramine HCl (Benadryl) 12.5 mg IV NOW STA Stop: 06/14/19 15:55 Last Admin: 06/14/19 16:16 Dose: 12.5 mg Documented by: [id number] Sodium Chloride (Nss) 500 mls @ 999 mls/hr IV .Q31M ONE Stop: 06/14/19 16:24 Last Infusion: 06/14/19 16:48 Dose: 0 mls/hr Documented by: [id number] Admin: 06/14/19 16:16 Dose: 999 mls/hr Documented by: [id number] Prochlorperazine (Compazine) 1 mls @ 1 mls/min IV ONE ONE Stop: 06/14/19 15:55 Last Admin: 06/14/19 16:22 Dose: 1 mls/min Documented by: [id number] Famotidine (Pepcid 20mg Iv Push) 20 mg in 5 mls @ 2.5 mls/min IV NOW STA Stop: 06/14/19 15:55 Last Admin: 06/14/19 16:16 Dose: 2.5 mls/min Documented by: [id number] Magnesium Sulfate/Dextrose (Magnesium Sulfate / D5w) 1 gm in 100 mls @ 100 mls/hr IV Q1H JERE Stop: 06/14/19 19:14 Last Infusion: 06/14/19 19:48 Dose: 0 mls/hr Documented by: [id number] Admin: 06/14/19 18:35 Dose: 100 mls/hr Documented by: [id number] Infusion: 06/14/19 18:35 Dose: 0 mls/hr Documented by: [id number] Admin: 06/14/19 17:24 Dose: 100 mls/hr Documented by: [id number] Potassium Phosphate 6 mmol/ (Sodium Chloride) 102 mls @ 88 mls/hr IV ONE ONE Stop: 06/14/19 18:39 Last Infusion: 06/14/19 18:55 Dose: 0 mls/hr Documented by: [id number] Admin: 06/14/19 17:41 Dose: 88 mls/hr Documented by: [id number] Ioversol (Optiray 320 100ml) 89 ml IV ONCE PRN PRN Reason: Interaction Checking Stop: 06/18/19 17:02 Last Admin: 06/14/19 17:03 Dose: 89 ml Documented by: [id number] Medical Decision Making Differential Diagnosis Differential diagnosis: Etiologies such as gastroenteritis, food borne illness, infections, appendicitis, diverticulitis, inflammatory bowel disease, obstruction, GI bleed, biliary pathology, as well as others were entertained. Medical Records Attestation: I reviewed the patient's medical records. Home Medications Current Medication List: was personally reviewed by me Laboratory Data Attestation: I reviewed the patient's lab results. Result diagrams: 06/14/19 15:45 06/14/19 15:45 Lab Results 06/14/19 06/14/19 06/14/19 Range/Units 15:45 15:45 15:45 WBC 4.68 L (4.8-10.8) K/uL RBC 3.72 L (4.2-5.4) M/uL Hgb 11.5 L (12.0-16.0) g/dL Hct 34.7 L (37-47) % MCV 93.3 (80-100) fL MCH 30.9 (25-34) pg MCHC 33.1 (32-36) g/dL RDW Std Deviation 46.6 H (36.4-46.3) fL RDW Coeff of Deandre 13.7 (11.5-14.5) % Plt Count 73 L (130-400) K/uL MPV 11.6 H (7.4-10.4) fL Immature Gran % (Auto) 0.0 % Neut % (Auto) 64.4 % Lymph % (Auto) 22.9 % Gates % (Auto) 7.5 % Eos % (Auto) 4.3 % Baso % (Auto) 0.9 % Immature Gran # (Auto) 0.00 (0.00-0.02) K/uL Neut # (Auto) 3.02 (1.4-6.5) K/uL Lymph # (Auto) 1.07 L (1.2-3.4) K/uL Gates # (Auto) 0.35 (0.11-0.59) K/uL Eos # (Auto) 0.20 (0-0.5) K/uL Baso # (Auto) 0.04 (0-0.2) K/uL Platelet Estimate Decreased L (Normal) Giant Platelets 1+ PT 10.7 (9.0-12.0) Seconds INR 1.0 (0.9-1.1) APTT 20.7 L (21.0-31.0) Seconds PTT Ratio 0.8 Sodium 139 (136-145) mmol/L Potassium 3.7 (3.5-5.1) mmol/L Chloride 103 (98-107) mmol/L Carbon Dioxide 24 (21-32) mmol/L Anion Gap 12.0 H (3-11) BUN 18 (7-18) mg/dl Creatinine 1.21 H (0.6-1.2) mg/dl Est Cr Clr Drug Dosing 34.2 ml/min Est GFR ( Amer) 50.7 Est GFR (Non-Af Amer) 43.7 BUN/Creatinine Ratio 15.0 (10-20) Glucose 136 H (70-99) mg/dl Lactate (0.4-2.0) mmol/L Calcium 9.6 (8.5-10.1) mg/dl Phosphorus 2.2 L (2.5-4.9) mg/dl Magnesium 1.4 L (1.8-2.4) mg/dl Total Bilirubin 0.4 (0.2-1) mg/dl AST 21 (15-37) U/L ALT 33 (12-78) U/L Alkaline Phosphatase 58 (45-117) U/L Troponin I < 0.015 (0-0.045) ng/ml Total Protein 7.2 (6.4-8.2) gm/dl Albumin 3.8 (3.4-5.0) gm/dl Globulin 3.4 (2.5-4.0) gm/dl Albumin/Globulin Ratio 1.1 (0.9-2) TSH 5.040 H (0.300-4.500) uIu/ml Free T4 1.14 (0.8-1.6) ng/dl Influenza Type A (PCR) (Neg) Influenza Type B (PCR) (Neg) 06/14/19 06/14/19 06/14/19 Range/Units 16:14 16:35 16:52 WBC (4.8-10.8) K/uL RBC (4.2-5.4) M/uL Hgb (12.0-16.0) g/dL Hct (37-47) % MCV (80-100) fL MCH (25-34) pg MCHC (32-36) g/dL RDW Std Deviation (36.4-46.3) fL RDW Coeff of Deandre (11.5-14.5) % Plt Count (130-400) K/uL MPV (7.4-10.4) fL Immature Gran % (Auto) % Neut % (Auto) % Lymph % (Auto) % Gates % (Auto) % Eos % (Auto) % Baso % (Auto) % Immature Gran # (Auto) (0.00-0.02) K/uL Neut # (Auto) (1.4-6.5) K/uL Lymph # (Auto) (1.2-3.4) K/uL Gates # (Auto) (0.11-0.59) K/uL Eos # (Auto) (0-0.5) K/uL Baso # (Auto) (0-0.2) K/uL Platelet Estimate (Normal) Giant Platelets PT (9.0-12.0) Seconds INR (0.9-1.1) APTT (21.0-31.0) Seconds PTT Ratio Sodium (136-145) mmol/L Potassium (3.5-5.1) mmol/L Chloride (98-107) mmol/L Carbon Dioxide (21-32) mmol/L Anion Gap (3-11) BUN (7-18) mg/dl Creatinine (0.6-1.2) mg/dl Est Cr Clr Drug Dosing ml/min Est GFR ( Amer) Est GFR (Non-Af Amer) BUN/Creatinine Ratio (10-20) Glucose (70-99) mg/dl Lactate 2.9 H* 2.3 H* (0.4-2.0) mmol/L Calcium (8.5-10.1) mg/dl Phosphorus (2.5-4.9) mg/dl Magnesium (1.8-2.4) mg/dl Total Bilirubin (0.2-1) mg/dl AST (15-37) U/L ALT (12-78) U/L Alkaline Phosphatase (45-117) U/L Troponin I (0-0.045) ng/ml Total Protein (6.4-8.2) gm/dl Albumin (3.4-5.0) gm/dl Globulin (2.5-4.0) gm/dl Albumin/Globulin Ratio (0.9-2) TSH (0.300-4.500) uIu/ml Free T4 (0.8-1.6) ng/dl Influenza Type A (PCR) Neg for Influ A (Neg) Influenza Type B (PCR) Neg for Influ B (Neg) Imaging Data Radiologist's Impression: Radiology results as stated below per my review and the radiologist's interpretation: XR chest 1V portable HISTORY: 73 years-old Female SEPSIS acute sepsis COMPARISON: Chest radiograph 05/15/2018 TECHNIQUE: Portable AP view of the chest FINDINGS: Cardiac silhouette is mildly enlarged, unchanged. Mediastinal contours are within normal limits. There is no pneumothorax, large pleural effusion or overt pulmonary edema. Unchanged blunting of the left costophrenic angle. Degenerative changes of the shoulders and spine. IMPRESSION: No acute process. ACT 112: Negative or not required by law. The above report was generated using voice recognition software. It may contain grammatical, syntax or spelling errors. Electronically signed by: Rosalio Jasso M.D. 06/14/2019 5:00 PM ABDOMEN AND PELVIS CT WITH IV CONTRAST CT DOSE: 438.92 mGy.cm HISTORY: Acute nausea and vomiting with history of small bowel obstruction. n/v, h/o sbo TECHNIQUE: Multiaxial CT images of the abdomen and pelvis were performed following the IV administration of 89 cc of Optiray 320, A dose lowering technique was utilized adhering to the principles of ALARA. COMPARISON STUDY: CT abdomen and pelvis 05/08/2019 FINDINGS: Clear lung bases. No pneumatosis or pneumoperitoneum. Imaged inferior cardiac chambers are unremarkable. Spleen, pancreas, gallbladder and adrenal glands appear unremarkable. There are 2 hypodense foci of the left hepatic lobe measuring up to 1.3 cm suggestive of hepatic cysts. Patency of the hepatic and portal veins. Kidneys and ureters are unremarkable. Mild bladder wall thickening with partial distention. Endometrium measures the upper limits of normal at 5 mm. Unremarkable appearance of the adnexa. Severe mixed plaque of the abdominal aorta with tortuosity. No adenopathy. Postoperative changes of subtotal colectomy with right lower quadrant ileostomy. There are several loops of small bowel wall thickening with perienteric stranding and trace free pelvic fluid. Parastomal hernia is redemonstrated. No bowel obstruction. Inflammatory stranding extends into the hernia and subcutaneous tissues. There is peripheral enhancement surrounding a 1.9 x 0.8 x 3.0 cm fluid collection of the ventral abdominal wall along the ventral incision. Skin page are noted. A few prominent likely reactive lymph nodes are seen within this area measuring up to 7 mm. No drainable fluid collection. Multilevel degenerative changes of the spine. IMPRESSION: 1. Postoperative changes of subtotal colectomy with right lower quadrant ileostomy and persistent parastomal hernia. Interval postoperative changes with ventral midline skin page and incision. Fluid and edema within the deep subcutaneous incision is noted with an ill-defined peripherally enhancing fluid collection measuring up to 1.9 x 0.8 x 3.0 cm. Postoperative seroma, hematoma or abscess are differential considerations. 2. Multiple loops of small bowel wall thickening may reflect an associated nonspecific enteritis. No bowel obstruction. 3. Mesenteric edema and trace mesenteric free fluid may be reactive or postsurgical. 4. Endometrium measures within the upper limits of normal at 5 mm. Findings could be correlated with a follow-up nonemergent pelvic ultrasound. 5. Additional findings as above. ACT 112: Negative or not required by law. The above report was generated using voice recognition software. It may contain grammatical, syntax or spelling errors. Electronically signed by: Rosalio Jasso M.D. 06/14/2019 5:27 PM ECG Data Attestation: I personally reviewed and interpreted this ECG as follows: Indication: + vomiting Rate (beats per minute): 91 Rhythm: + sinus rhythm ECG [place]: + Left axis deviation ECG ST segments: no ST depression and no ST elevation ECG Findings: + Other (QTC is 460, QRS is 80); no PACs and no PVCs Blood Pressure Blood Pressure Findings: Normal blood pressure MDM Narrative The patient is a pleasant 73-year-old woman with a past medical history of bowel obstruction status post ileostomy, history of recent surgical site infection in April 2019 currently on a month-long course of oral antibiotics for which she has 4 days left who presents emergency department with acute onset nausea and vomiting with generalized weakness over the past 48 hours per HPI. On arrival the patient is fatigued appearing but no acute distress, afebrile with stable vital signs. The patient appears clinically dry. Abdomen is benign. Her ostomies and surgical site are clean dry and intact without evidence of infection. Of note, the patient has blackened discoloration of her tongue which she reports has evolved over the past week even prior to her development of nausea and vomiting. Review of Zyvox adverse effects do included "blackened tongue". EKG without overt acute ischemia. Chest x-ray negative for acute process. WBC 4.6, nonspecific and H/H 11.5/34.7 within range of prior values. Platelets 73K newly decreased. Pancytopenia also could be attributed to patient's prolonged Zyvox use though viral illness is also possible. Chemistry without acidosis. Creatinine 1.2 consistent with the patient's clinically dry a ppearance. Lactate 2.9 which is likely related to a component of dehydration and the patient's nausea and vomiting with a possible component related to Zyvox as well. Magnesium 1.4 and phosphorus 2.2 with repletion provided. Troponin negative/undetectable. Flu negative. UA pending. CT them pelvis performed and demonstrates findings that could be consistent with enteritis. Otherwise post operative findings appreciated. There is a small 3 x 1 x 1 deep subcutaneous collection that is most likely seroma given the patient's close post operative follow-up and management with regular home nursing wound packing. Given no clear new infectious source, additional antibiotics deferred at this time. Patient was feeling improved after IV fluid hydration, Compazine, Pepcid. However still feeling generally weak. Given this and the patient's electrolyte abnormalities reasonable to admit the patient for further management. Case was discussed with Iraj Carvalho who evaluate the patient for admission. Requests we touch base with general surgery, Dr. Teixeira, the patient's surgeon to update on the patient's presentation. I did discuss the case with Dr. Teixeira who agrees fluid collection unlikely to be infectious at this time and recently saw the patient in clinic with a reassuring evaluation. Impression & Plan Gastroenteritis, Dehydration, Pancytopenia, Elevated lactic acid level Discharge Plan Visit Data *Final* Discharge Date/Time: 06/14/19 19:02 Chief Complaint: Illness ED Provider: Jg Collado Discharge Problem: Gastroenteritis, Dehydration, Pancytopenia, Elevated lactic acid level Patient Disposition: Admitted As Inpatient Discharge Instructions Interventions: ED Discharge Assessment Last Done: 06/14/19 19:02 The scribe's documentation has been prepared under my direction and personally reviewed by me in its entirety. I confirm that the note above accurately reflects all work, treatment, procedures, and medical decision making performed by me.
[2019-06-14 17:11] LABS: Influenza A virus by PCR Neg for Influ A (Neg); Influenza B virus by PCR Neg for Influ B (Neg)
[2019-06-14] MEDS: MAGNESIUM SULFATE / D5W 1 GM/100 ML BAG IV SCH ×2 (17:24→18:35)
--- NOTE | 2019-06-14 17:29 | CT Scan Report ---
ABDOMEN AND PELVIS CT WITH IV CONTRAST CT DOSE: 438.92 mGy.cm HISTORY: Acute nausea and vomiting with history of small bowel obstruction. n/v, h/o sbo TECHNIQUE: Multiaxial CT images of the abdomen and pelvis were performed following the IV administrat ion of 89 cc of Optiray 320, A dose lowering technique was utilized adhering to the principles of AL CATRACHITO. COMPARISON STUDY: CT abdomen and pelvis 05/08/2019 FINDINGS: Clear lung bases. No pneumatosis or pneumoperitoneum. Imaged inferior cardiac chambers are unremarkab le. Spleen, pancreas, gallbladder and adrenal glands appear unremarkable. There are 2 hypodense foci of the left hepatic lobe measuring up to 1.3 cm suggestive of hepatic cysts. Patency of the hepatic a nd portal veins. Kidneys and ureters are unremarkable. Mild bladder wall thickening with partial dist ention. Endometrium measures the upper limits of normal at 5 mm. Unremarkable appearance of the adnex a. Severe mixed plaque of the abdominal aorta with tortuosity. No adenopathy. Postoperative changes of subtotal colectomy with right lower quadrant ileostomy. There are several lo ops of small bowel wall thickening with perienteric stranding and trace free pelvic fluid. Parastomal hernia is redemonstrated. No bowel obstruction. Inflammatory stranding extends into the hernia and s ubcutaneous tissues. There is peripheral enhancement surrounding a 1.9 x 0.8 x 3.0 cm fluid collectio n of the ventral abdominal wall along the ventral incision. Skin page are noted. A few prominent l ikely reactive lymph nodes are seen within this area measuring up to 7 mm. No drainable fluid collect ion. Multilevel degenerative changes of the spine. IMPRESSION: 1. Postoperative changes of subtotal colectomy with right lower quadrant ileostomy and persistent par astomal hernia. Interval postoperative changes with ventral midline skin page and incision. Fluid and edema within the deep subcutaneous incision is noted with an ill-defined peripherally enhancing f luid collection measuring up to 1.9 x 0.8 x 3.0 cm. Postoperative seroma, hematoma or abscess are dif ferential considerations. 2. Multiple loops of small bowel wall thickening may reflect an associated nonspecific enteritis. No bowel obstruction. 3. Mesenteric edema and trace mesenteric free fluid may be reactive or postsurgical. 4. Endometrium measures within the upper limits of normal at 5 mm. Findings could be correlated with a follow-up nonemergent pelvic ultrasound. 5. Additional findings as above. ACT 112: Negative or not required by law. The above report was generated using voice recognition software. It may contain grammatical, syntax o r spelling errors. Electronically signed by: Rosalio Jasso M.D. 06/14/2019 5:27 PM
[2019-06-14] MEDS ORDERED: POTASSIUM PHOSPHATE 6 MMOL in 0.9 % SODIUM CHLORIDE 100 ML IV ONE (17:30)
--- NOTE | 2019-06-14 18:58 | History & Physical Report ---
Date of Service June 14, 2019 Assessment & Plan (1) Intractable vomiting with nausea: -Admit to [facility] -Patient presenting from home with reports nausea and vomiting x3 days -In the ED, found to have mild BUTCH with hypomagnesemia and hypophosphatemia -Viral gastroenteritis vs. side effects of prolonged antibiotics vs. C. difficile -Continue supportive care with IVF, PRN antiemetics, electrolyte replacement -Stool for C. difficile -Hold antibiotics for now (patient only has 4 days remaining of course for postop wound infection) -N.p.o. for now, likely can advance to clear liquids in a.m. (2) BUTCH (acute kidney injury): -Creatinine 1.2, baseline ~ 0.7 -Likely prerenal in nature secondary to poor p.o. intake and vomiting -IVF, follow renal functions (3) Hypomagnesemia: (4) Hypophosphatemia: -MG +1.4, phos 2.2 -Replace, follow electrolytes (5) Elevated lactic acid level: -Lactic acid 2.6 -> 2.3 -Likely secondary to dehydration, continue to trend lactic acid level (6) Thickened endometrium: -Noted to be [address] ABD/pelvis -Outpatient follow-up pelvic ultrasound (7) Pancytopenia: -Mild -? Due to Zyvox -Daily CBC (8) Postoperative wound infection: -recently admitted to [facility] 05/08 through 05/20 for incarcerated parastomal hernia status post repair. Postoperative course complicated by postop wound infection that grew E. coli and enterococcus faecalis. Patient was discharged on a 4-week course of p.o. Zyvox and cefdinir. -Given persistent nausea and vomiting, will hold antibiotics for now (patient only has 4 days remaining of 4-week course) -CT ABD/pelvis showing small incisional fluid collection, seroma versus abscess (suspect seroma, no leukocytosis or fever, incisional site is without erythema and drainage) -Dr. Teixeira consulted for input (9) Polymyalgia rheumatica: -Managed with prednisone 5 mg daily, continue (10) Leg edema: -Typically managed with furosemide -will hold secondary to dehydration (11) GERD (gastroesophageal reflux disease): -Continue PPI (12) Dyslipidemia: -Continue statin (13) DVT prophylaxis: -SCDs due to thrombocytopenia History of Present Illness Chief Complaint: Nausea and vomiting Primary Care Provider: Derrick Ruiz DO 73-year-old female who presents the ED for evaluation of nausea and vomiting. Patient most recently admitted to [facility] 05/08 through 05/20 for incarcerated parastomal hernia status post repair. Postoperative course complicated by postop wound infection that grew E. coli and enterococcus faecalis. Patient was discharged on a 4-week course of p.o. Zyvox and cefdinir. Patient reports she has been doing well until about 3 days ago. She reports she developed nausea and very poor appetite. She has had several episodes of vomiting. Denies hematemesis and coffee-ground emesis. Has noted more liquid stools from ileostomy. No abdominal pain. Incisional site continues to heal well without surrounding erythema or drainage. No fevers or chills. She denies chest pain and shortness of breath. No lightheadedness, dizziness, diaphoresis, syncopal events. She denies any urinary symptoms. In the ED, labs show a mild pancytopenia, creatinine 1.2, lactate 2.6, phosphorus 2.2, magnesium 1.4. CT ABD/pelvis suggesting enteritis with a small fluid collection within prior incision. Patient was given IV diphenhydramine, IV famotidine, IV prochlorperazine, IVF, and phosphorus and magnesium replacement. Allergies Allergy/AdvReac Type Severity Reaction Status Date / Time Penicillins Allergy Severe Hives Verified 06/14/19 16:10 Cipro Allergy Intermediate SEVERE RASH Verified 01/24/14 12:55 ciprofloxacin Allergy Intermediate SEVERE RASH Verified 06/14/19 16:10 adhesive Allergy Mild Rash Verified 06/14/19 16:10 ondansetron [From Zofran] Allergy Mild Rash Verified 06/14/19 16:10 codeine Allergy Unknown n/v Verified 06/14/19 16:10 pinpoint pupils infliximab Allergy Unknown Unknown Verified 06/14/19 16:10 Quinolones Allergy Unknown Unknown Verified 06/14/19 16:10 tramadol Allergy Unknown bradycardia Verified 06/14/19 16:10 vancomycin Allergy Unknown Maris Verified 06/14/19 16:10 syndrome NONSTEROIDAL Allergy Unknown NAPROXEN Uncoded 06/14/19 16:10 Home Medications Home Medications Medication Instructions Recorded Confirmed Type aspirin 81 mg tablet,delayed 81 mg PO DAILY 04/19/19 06/14/19 History release omeprazole magnesium 20 mg 20 mg PO DAILY 04/19/19 06/14/19 History tablet,delayed release potassium chloride 10 mEq 10 meq PO 3XWK PRN 04/19/19 06/14/19 History capsule,extended release furosemide [Lasix] 20 mg PO 3XWK 05/08/19 06/14/19 History prednisone 5 mg PO DAILY 05/08/19 06/14/19 History rosuvastatin 5 mg PO DAILY 05/08/19 06/14/19 History Lactobacillus rhamnosus GG 1 cap PO DAILY #30 cap 05/20/19 06/14/19 Rx [Culturelle] cefdinir 300 mg PO BID #56 cap 05/20/19 06/14/19 Rx linezolid [Zyvox] 600 mg PO BID 06/14/19 06/14/19 History Past Med/Surg History Medical History Clostridium difficile infection (Acute) Dyslipidemia GERD (gastroesophageal reflux disease) Herpes zoster Kidney stones (Resolved) Missed Osteoarthritis Parastomal hernia with obstruction and without gangrene S/p repair Polymyalgia rheumatica (Chronic) SBO (small bowel obstruction) (Acute) Ulcerative colitis Surgical History H/O ileostomy H/O oral surgery H/O ventral hernia repair History of colectomy (Resolved) S/P appendectomy S/P colonoscopy S/P dilation and curettage S/P repair of ventral hernia parastomal with placement of biologic mesh S/P tonsillectomy and adenoidectomy S/P tubal ligation Family History Grandmother (Paternal) Breast cancer Grandmother (Maternal) Colorectal cancer Father Rheumatic heart disease Mother Thyroid cancer Social History Preferred Language: Nepalese Communication Ability: Effective Emergency Technician Required: No Beliefs That Will Affect Care: None marital status: / Current Living Situation: Alone Feels Safe at Home: Yes Smoking Status: Former smoker Hx Alcohol Use: No Hx Substance Use: No Review of Systems Review of Systems: ROS per HPI, all other systems reviewed and negative Physical Exam Physical Exam: Please refer to Dr. Arevalo's addendum for physical exam. Results & Data Vital Signs (Past 12 Hours) Vital Signs Temp Pulse Pulse Resp BP BP Pulse Ox 06/14/19 18:31 82 18 98 06/14/19 18:30 86 22 115/82 99 06/14/19 18:01 81 23 96 06/14/19 18:00 108 H 16 123/60 97 06/14/19 17:31 86 17 97 06/14/19 17:30 89 19 114/73 98 06/14/19 17:15 89 18 100 06/14/19 17:14 81 25 H 143/85 H 99 06/14/19 17:13 90 17 06/14/19 16:38 86 20 108/80 99 06/14/19 16:30 85 20 06/14/19 16:20 78 24 96 06/14/19 16:08 84 20 99 06/14/19 15:51 36.4 C L 105 H 20 108/80 98 06/14/19 15:46 80 20 108/80 100 Laboratory Results Short CBC 06/14/19 Range/Units 15:45 WBC 4.68 L (4.8-10.8) K/uL Hgb 11.5 L (12.0-16.0) g/dL Hct 34.7 L (37-47) % Plt Count 73 L (130-400) K/uL BMP 06/14/19 15:45 Sodium 139 Potassium 3.7 Chloride 103 Carbon Dioxide 24 BUN 18 Creatinine 1.21 H Glucose 136 H Calcium 9.6 Cardiac Enzymes 06/14/19 Range/Units 15:45 Troponin I < 0.015 (0-0.045) ng/ml Liver Function 06/14/19 Range/Units 15:45 Total Bilirubin 0.4 (0.2-1) mg/dl AST 21 (15-37) U/L ALT 33 (12-78) U/L Alkaline Phosphatase 58 (45-117) U/L Albumin 3.8 (3.4-5.0) gm/dl Diagnostic Findings CT ABD/PELVIS IMPRESSION: 1. Postoperative changes of subtotal colectomy with right lower quadrant ileostomy and persistent parastomal hernia. Interval postoperative changes with ventral midline skin page and incision. Fluid and edema within the deep subcutaneous incision is noted with an ill-defined peripherally enhancing fluid collection measuring up to 1.9 x 0.8 x 3.0 cm. Postoperative seroma, hematoma or abscess are differential considerations. 2. Multiple loops of small bowel wall thickening may reflect an associated nonspecific enteritis. No bowel obstruction. 3. Mesenteric edema and trace mesenteric free fluid may be reactive or postsurgical. 4. Endometrium measures within the upper limits of normal at 5 mm. Findings could be correlated with a follow-up nonemergent pelvic ultrasound. 5. Additional findings as above. CXR IMPRESSION: No acute process. Code Status & VTE Plan Code Status Patient is a full code as per Dr. Arevalo's discussion with her. VTE Prophylaxis Plan VTE Prophylaxis will be ordered: Yes Supervising Physician Co-Signing Physician Notes Attending Addendum: care coordinated with MAGDY Bella please refer to her notes for full details, I agree with her notes patient seen and examined, records reviewed by myself as well on exam, patient resting in bed, appears somewhat weak, but not in acute distress states nausea has improved since admission no abdominal pain but does report stomach feeling "queasy" for the past 3 days no other symptoms VS noted and reviewed oriented x 3 , not in distress, speaks in sentences with no effort nor accessory muscle use normal rate, regular rhythm, no murmurs clear breath sounds bilaterally non distended, hypoactive bowel sounds, soft, nontender surgical site: page in place, no tenderness/warmth/erythema/discharge ileostomy: (+) brown, watery stools no bipedal edema, erythema, warmth no neuro deficits WBC 4.6 Hg 11.[address] abdomen/pelvis: 1. Postoperative changes of subtotal colectomy with right lower quadrant ileostomy and persistent parastomal hernia. Interval postoperative changes with ventral midline skin page and incision. Fluid and edema within the deep subcutaneous incision is noted with an ill-defined peripherally enhancing fluid collection measuring up to 1.9 x 0.8 x 3.0 cm. Postoperative seroma, hematoma or abscess are differential considerations. 2. Multiple loops of small bowel wall thickening may reflect an associated nonspecific enteritis. No bowel obstruction. 3. Mesenteric edema and trace mesenteric free fluid may be reactive or postsurgical. 4. Endometrium measures within the upper limits of normal at 5 mm. Findings could be correlated with a follow-up nonemergent pelvic ultrasound. 5. Additional findings as above. ASSESSMENT AND PLAN INTRACTABLE NAUSEA/VOMITING S/P REPAIR OF PARASTOMAL HERNIA, 04/2019, SURGICAL WOUND INFECTION ON ORAL ANTIBIOTICS possible viral gastroenteritis, r/o C diff CT abd: no obstruction; ill-defined peripherally enhancing fluid collection measuring up to 1.9 x 0.8 x 3.0 cm. Postoperative seroma, hematoma or abscess are differential considerations. check stool for C diff NPO for now, IV hydration, replace electrolytes repeat imaging if with no improvement tomorrow to r/o developing ileus or obstruction POSSIBLE Fluid collection in the incision site no fever, leukocytosis CT abd: no obstruction; ill-defined peripherally enhancing fluid collection measuring up to 1.9 x 0.8 x 3.0 cm. Postoperative seroma, hematoma or abscess are differential considerations. General Surgery consulted other diagnoses and plan of care as per ZACARIAS Bella's notes Sharif Arevalo MD
[2019-06-14] MEDS ORDERED: SODIUM CHLORIDE 0.9% 1000ML 1,000 ML IV SCH (19:47)
[2019-06-14] MEDS ORDERED: ACETAMINOPHEN 325 MG TAB PO PRN (19:47)
[2019-06-14 20:30] LABS: Appearance Urine Clear (Clear); Bilirubin Urine Negative (Negative); Blood Urine Negative (Negative); Color Urine Yellow; Glucose Urine UA Negative (Negative); Ketones Urine 1+ (Negative); Leukocyte Esterase Urine Negative (Negative); Nitrite Urine Negative (Negative); Protein Urine Negative (Negative); Specific Gravity Urine > 1.045 (1.000-1.030); Urobilinogen Urine Negative (Negative)
[2019-06-15 07:12] LABS: Hematocrit (blood only) 28.1 % (37-47); Hemoglobin 9.4 g/dL (12.0-16.0); Mean Corpuscular Hemoglobin 30.9 pg (25-34); Mean Corpuscular Hgb Conc 33.5 g/dL (32-36); Mean Corpuscular Volume 92.4 fL (80-100); RDW Coefficient of Variation 13.9 % (11.5-14.5); RDW Standard Deviation 46.8 fL (36.4-46.3); Red Blood Count 3.04 M/uL (4.2-5.4); White Blood Count 3.56 K/uL (4.8-10.8)
[2019-06-15 07:35] LABS: Mean Platelet Volume 10.8 fL (7.4-10.4); Platelet Count 56 K/uL (130-400); Platelet Estimate Decreased (Normal)
[2019-06-15 07:44] LABS: BUN Creatinine Ratio 17.8 (10-20); Calcium 8.3 mg/dl (8.5-10.1); Creatinine Clr Calc Pharmacy 55.2 ml/min; Est GFR (African American) 88.9; Est GFR (Non-African American) 76.7; Magnesium 2.1 mg/dl (1.8-2.4); Phosphorus 2.6 mg/dl (2.5-4.9); Potassium 3.3 mmol/L (3.5-5.1)
[2019-06-15] MEDS ORDERED: POTASSIUM CHLORIDE 20 MEQ TABCR PO STA (08:29)
[2019-06-15] MEDS ORDERED: LOPERAMIDE HCL 2 MG CAP PO PRN (08:34)
[2019-06-15] MEDS: LACTOBACILLUS ACIDOPHILUS (FLORANEX) TAB PO SCH (09:02)
[2019-06-15] MEDS: predniSONE 5 MG TAB PO SCH (09:02)
[2019-06-15] MEDS: ASPIRIN 81 MG ECTAB PO SCH (09:02)
[2019-06-15] MEDS: ROSUVASTATIN CALCIUM 5 MG TAB PO SCH (09:02)
[2019-06-15] MEDS: PANTOprazole 40 MG TAB PO SCH (09:02)
--- NOTE | 2019-06-15 14:16 | Electrocardiogram Report ---
Test Reason : Blood Pressure : / mmHG Vent. Rate : 091 BPM Atrial Rate : 091 BPM P-R Int : 146 ms QRS Dur : 080 ms QT Int : 374 ms P-R-T Axes : -25 -50 -03 degrees QTc Int : 460 ms Poor data quality, interpretation may be adversely affected Normal sinus rhythm Left axis deviation Low voltage QRS Cannot rule out Anterior infarct (cited on or before 08-MAY-2019) Abnormal ECG When compared with ECG of 08-MAY-2019 08:04, Nonspecific T wave abnormality no longer evident in Lateral leads Confirmed by Son Brewer ([id number]) on 06/15/2019 2:15:28 PM Referred By: REFERRED SELF Confirmed By:Son Brewer
--- NOTE | 2019-06-15 15:03 | Hospitalist Progress Note ---
Date of Service June 15, 2019 Assessment & Plan (1) Intractable vomiting with nausea: ? 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 Interval postoperative changes with ventral midline skin page and incision. Fluid and edema within the deep subcutaneous incision is noted with an ill-defined peripherally enhancing fluid collection measuring up to 1.9 x 0.8 x 3.0 cm. Postoperative seroma, hematoma or abscess are differential considerations. Multiple loops of small bowel wall thickening may reflect an associated nonspecific enteritis. No bowel obstruction. Mesenteric edema and trace mesenteric free fluid may be reactive or postsurgical. Endometrium measures within the upper limits of normal at 5 mm. Findings could be correlated with a follow-up nonemergent pelvic ultrasound. --Stool for C. difficile: Negative --Antibiotics discontinued --Received IV fluids --Clear liquid diet for now --Advance as tolerated --Antiemetics PRN Hypokalemia Hypomagnesemia Hypophosphatemia Likely due to GI losses Replete electrolytes as needed (2) BUTCH (acute kidney injury): Baseline ~ 0.7 Likely prerenal due to nausea, vomiting, poor oral intake Received IV fluids Renal function back to baseline Monitor renal function Avoid nephrotoxic agents as able Tongue discoloration Likely secondary to Zyvox Denies pain, itching, dysphagia or odynophagia Good oral hygiene Monitor (3) Hypomagnesemia: (4) Hypophosphatemia: As above (5) Elevated lactic acid level: Lactic acid 2.6 -> 2.3>>1.7 Likely secondary to dehydration (6) Thickened endometrium: Noted to be [address] ABD/pelvis Outpatient follow-up pelvic ultrasound and OBGYN evaluation (7) Pancytopenia: Likely due to Zyvox Monitor CBC (8) Postoperative wound infection: Recently admitted to [facility] 05/08 through 05/20 for incarcerated parastomal hernia status post repair. Postoperative course complicated by postop wound infection that grew E. coli and enterococcus faecalis. Patient was discharged on a 4-week course of p.o. Zyvox and cefdinir. --Patient only has 4 days remaining of 4-week course CT ABD/pelvis showing small incisional fluid collection, seroma versus abscess (suspect seroma, no leukocytosis or fever, incisional site is without erythema and drainage) --Surgery consulted for Input (9) Polymyalgia rheumatica: On 5 mg daily (10) Leg edema: On furosemide at home -Hold diuretics for now secondary to dehydration (11) GERD (gastroesophageal reflux disease): Continue PPI (12) Dyslipidemia: Continue statin (13) DVT prophylaxis: SCDs Re: Thrombocytopenia CODE STATUS Full code Disposition PT OT prior to discharge Subjective Patient is seen and examined at bedside Feels much better today Nausea, vomiting much improved Denies any abdominal pain, chest pain, shortness of breath, dizziness Reports discolored tongue Offers no other complaints Review of Systems Review of Systems: All systems reviewed & are unremarkable except as noted in HPI & below Physical Exam Physical Exam: Physical Exam: Vitals signs as noted above General Appearance:Moderately built and nourished, no apparent distress Head: normocephalic, Atraumatic Eyes: normal inspection, EOMI Neck: supple, Trachea midline Respiratory/Chest: Normal breath sounds, CTA Cardiovascular: S1, S2, No murmur Abdomen/GI:Soft, Non tender, + Ileostomy, Bowel sounds present Extremities/Musculoskelatal:normal inspection, no edema Neurologic/Psych:AAOX3, grossly no focal neurological deficits Skin: normal color, warm Results & Data Vital Signs (Past 12 Hours) Vital Signs Temp Pulse Resp BP Pulse Ox 06/15/19 06:59 36 C L 73 16 125/75 95 Laboratory Results Short CBC 06/14/19 06/15/19 Range/Units 15:45 06:45 WBC 4.68 L 3.56 L (4.8-10.8) K/uL Hgb 11.5 L 9.4 L (12.0-16.0) g/dL Hct 34.7 L 28.1 L (37-47) % Plt Count 73 L 56 L (130-400) K/uL BMP 06/14/19 06/15/19 15:45 06:45 Sodium 139 141 Potassium 3.7 3.3 L Chloride 103 109 H Carbon Dioxide 24 25 BUN 18 14 Creatinine 1.21 H 0.76 D Glucose 136 H 86 Calcium 9.6 8.3 L Cardiac Enzymes 06/14/19 Range/Units 15:45 Troponin I < 0.015 (0-0.045) ng/ml Liver Function 06/14/19 Range/Units 15:45 Total Bilirubin 0.4 (0.2-1) mg/dl AST 21 (15-37) U/L ALT 33 (12-78) U/L Alkaline Phosphatase 58 (45-117) U/L Albumin 3.8 (3.4-5.0) gm/dl Urine 06/14/19 Range/Units 19:41 Urine Color Yellow Urine Appearance Clear (Clear) Urine pH 5.0 (4.5-7.5) Ur Specific Morgan > 1.045 H (1.000-1.030) Urine Protein Negative (Negative) Urine Glucose (UA) Negative (Negative)
--- NOTE | 2019-06-15 17:01 | Surgery Consultation ---
Date of Consultation June 15, 2019 Assessment & Plan (1) Intractable vomiting with nausea: Etiology of the nausea and vomiting is unclear. It may be related to her antibiotics. It may be related to an enteritis. There is no evidence of bowel obstruction. She has a small collection seen on CT was this may be a seroma. There is a possibility that it is a remaining abscess but there were no other associated findings such as fever erythema tenderness of the abdomen. I do not feel that there is any need for surgical intervention at this time. If anything symptomatic develops an ultrasound with percutaneous drainage would be appropriate. History of Present Illness Reason for Consultation: Nausea and vomiting Requesting Physician: Leonel Uriarte MD Attending Physician: Leonel Uriarte MD History of Present Illness I have been asked by Marlyn Bella PA-C to see this 73-year-old female who presented to the emergency room with nausea and vomiting. She is well-known to me. In mid April she was admitted with an incarcerated parastomal hernia repaired. She then developed wound infection with E. coli and enterococcus and she has been on antibiotics since. She developed nausea and had a poor appetite that she attributed to the antibiotics however over the last 3 days it has been worse such that when she would even put food in her mouth she would then vomit. She has no abdominal pain whatsoever. I seen her in the office during the weekend the I&D site had closed. There is no erythema. She has had no fever or chills. The ileostomy is functioning well. She underwent a CT scan of the abdomen pelvis that demonstrated thickening of some of the bowel wall with a small collection. There was no evidence of bowel obstruction however. She had no dysuria or hematuria. There was no blood in the ileostomy output. She was admitted with dehydration and mild BUTCH. Today she feels well. She has no further nausea. She has been tolerating clear liquids. The ileostomy continues to function and she continues to deny abdominal pain. Allergies Allergy/AdvReac Type Severity Reaction Status Date / Time Penicillins Allergy Severe Hives Verified 06/14/19 16:10 Cipro Allergy Intermediate SEVERE RASH Verified 01/24/14 12:55 ciprofloxacin Allergy Intermediate SEVERE RASH Verified 06/14/19 16:10 adhesive Allergy Mild Rash Verified 06/14/19 16:10 ondansetron [From Zofran] Allergy Mild Rash Verified 06/14/19 16:10 codeine Allergy Unknown n/v Verified 06/14/19 16:10 pinpoint pupils infliximab Allergy Unknown Unknown Verified 06/14/19 16:10 Quinolones Allergy Unknown Unknown Verified 06/14/19 16:10 tramadol Allergy Unknown bradycardia Verified 06/14/19 16:10 vancomycin Allergy Unknown Maris Verified 06/14/19 16:10 syndrome NONSTEROIDAL Allergy Unknown NAPROXEN Uncoded 06/14/19 16:10 Home Medications Home Medications Medication Instructions Recorded Confirmed Type aspirin 81 mg tablet,delayed 81 mg PO DAILY 04/19/19 06/14/19 History release omeprazole magnesium 20 mg 20 mg PO DAILY 04/19/19 06/14/19 History tablet,delayed release potassium chloride 10 mEq 10 meq PO 3XWK PRN 04/19/19 06/14/19 History capsule,extended release furosemide [Lasix] 20 mg PO 3XWK 05/08/19 06/14/19 History prednisone 5 mg PO DAILY 05/08/19 06/14/19 History rosuvastatin 5 mg PO DAILY 05/08/19 06/14/19 History Lactobacillus rhamnosus GG 1 cap PO DAILY #30 cap 05/20/19 06/14/19 Rx [Culturelle] cefdinir 300 mg PO BID #56 cap 05/20/19 06/14/19 Rx linezolid [Zyvox] 600 mg PO BID 06/14/19 06/14/19 History Patient History Medical History Clostridium difficile infection (Acute) Dyslipidemia GERD (gastroesophageal reflux disease) Herpes zoster Kidney stones (Resolved) Missed Osteoarthritis Parastomal hernia with obstruction and without gangrene S/p repair Polymyalgia rheumatica (Chronic) SBO (small bowel obstruction) (Acute) Ulcerative colitis Surgical History H/O ileostomy H/O oral surgery H/O ventral hernia repair History of colectomy (Resolved) S/P appendectomy S/P colonoscopy S/P dilation and curettage S/P repair of ventral hernia parastomal with placement of biologic mesh S/P tonsillectomy and adenoidectomy S/P tubal ligation Family History Grandmother (Paternal) Breast cancer Grandmother (Maternal) Colorectal cancer Father Rheumatic heart disease Mother Thyroid cancer Social History Preferred Language: Turkmen Communication Ability: Effective Microbiology Manager Required: No Beliefs That Will Affect Care: None marital status: / Current Living Situation: Alone Other Information That Helps Us Care for You: No Feels Safe at Home: Yes Safety Concerns: Feels Safe At This Time Smoking Status: Former smoker Tobacco Type: cigarettes ; Smoking End Date: 2002 ; Second Hand Exposure: No ; Tobacco Cessation Education Requested by Patient: No Hx Alcohol Use: Yes Alcohol type: wine Hx Substance Use: No Physical Exam Constitutional: no acute distress Respiratory: normal respiratory effort, lungs clear to auscultation Cardiovascular: Rate/Rhythm: regular rate and regular rhythm Gastrointestinal (Abdomen): Inspection/Auscultation: normal bowel sounds and + abdominal surgical incision (Clean, dry, intact, no erythema); abdomen not distended Percussion/Palpation: abdomen soft; abdomen nontender Skin: no rashes, warm and dry Lymphatic: no cervical lymphadenopathy Results & Data Vital Signs (Past 12 Hours) Vital Signs Temp Pulse Resp BP Pulse Ox 06/15/19 15:42 36.8 C 78 14 117/76 95 06/15/19 06:59 36 C L 73 16 125/75 95 Laboratory Results 06/15/19 06/15/19 06/14/19 Range/Units 06:45 06:45 21:55 WBC 3.56 L (4.8-10.8) K/uL RBC 3.04 L (4.2-5.4) M/uL Hgb 9.4 L (12.0-16.0) g/dL Hct 28.1 L (37-47) % MCV 92.4 (80-100) fL MCH 30.9 (25-34) pg MCHC 33.5 (32-36) g/dL RDW Std Deviation 46.8 H (36.4-46.3) fL RDW Coeff of Deandre 13.9 (11.5-14.5) % Plt Count 56 L (130-400) K/uL MPV 10.8 H (7.4-10.4) fL Platelet Estimate Decreased L (Normal) Sodium 141 (136-145) mmol/L Potassium 3.3 L (3.5-5.1) mmol/L Chloride 109 H (98-107) mmol/L Carbon Dioxide 25 (21-32) mmol/L Anion Gap 7.0 (3-11) BUN 14 (7-18) mg/dl Creatinine 0.76 D (0.6-1.2) mg/dl Est Cr Clr Drug Dosing 55.2 ml/min Est GFR ( Amer) 88.9 Est GFR (Non-Af Amer) 76.7 BUN/Creatinine Ratio 17.8 (10-20) Glucose 86 (70-99) mg/dl Lactate 1.7 (0.4-2.0) mmol/L Calcium 8.3 L (8.5-10.1) mg/dl Phosphorus 2.6 (2.5-4.9) mg/dl Magnesium 2.1 (1.8-2.4) mg/dl Urine Color Urine Appearance (Clear) Urine pH (4.5-7.5) Ur Specific [place] (1.000-1.030) Urine Protein (Negative) Urine Glucose (UA) (Negative) Urine Ketones (Negative) Urine Blood (Negative) Urine Nitrite (Negative) Urine Bilirubin (Negative) Urine Urobilinogen (Negative) Ur Leukocyte Esterase (Negative) Stl C. diff Tox B Gene (Neg) Influenza Type A (PCR) (Neg) Influenza Type B (PCR) (Neg) 06/14/19 06/14/19 06/14/19 Range/Units 20:20 19:41 16:52 WBC (4.8-10.8) K/uL RBC (4.2-5.4) M/uL Hgb (12.0-16.0) g/dL Hct (37-47) % MCV (80-100) fL MCH (25-34) pg MCHC (32-36) g/dL RDW Std Deviation (36.4-46.3) fL RDW Coeff of Deandre (11.5-14.5) % Plt Count (130-400) K/uL MPV (7.4-10.4) fL Platelet Estimate (Normal) Sodium (136-145) mmol/L Potassium (3.5-5.1) mmol/L Chloride (98-107) mmol/L Carbon Dioxide (21-32) mmol/L Anion Gap (3-11) BUN (7-18) mg/dl Creatinine (0.6-1.2) mg/dl Est Cr Clr Drug Dosing ml/min Est GFR ( Amer) Est GFR (Non-Af Amer) BUN/Creatinine Ratio (10-20) Glucose (70-99) mg/dl Lactate 2.3 H* (0.4-2.0) mmol/L Calcium (8.5-10.1) mg/dl Phosphorus (2.5-4.9) mg/dl Magnesium (1.8-2.4) mg/dl Urine Color Yellow Urine Appearance Clear (Clear) Urine pH 5.0 (4.5-7.5) Ur Specific [place] > 1.045 H (1.000-1.030) Urine Protein Negative (Negative) Urine Glucose (UA) Negative (Negative) Urine Ketones 1+ H (Negative) Urine Blood Negative (Negative) Urine Nitrite Negative (Negative) Urine Bilirubin Negative (Negative) Urine Urobilinogen Negative (Negative) Ur Leukocyte Esterase Negative (Negative) Stl C. diff Tox B Gene Negative Cdiff Gene (Neg) Influenza Type A (PCR) (Neg) Influenza Type B (PCR) (Neg) 06/14/19 Range/Units 16:35 WBC (4.8-10.8) K/uL RBC (4.2-5.4) M/uL Hgb (12.0-16.0) g/dL Hct (37-47) % MCV (80-100) fL MCH (25-34) pg MCHC (32-36) g/dL RDW Std Deviation (36.4-46.3) fL RDW Coeff of Deandre (11.5-14.5) % Plt Count (130-400) K/uL MPV (7.4-10.4) fL Platelet Estimate (Normal) Sodium (136-145) mmol/L Potassium (3.5-5.1) mmol/L Chloride (98-107) mmol/L Carbon Dioxide (21-32) mmol/L Anion Gap (3-11) BUN (7-18) mg/dl Creatinine (0.6-1.2) mg/dl Est Cr Clr Drug Dosing ml/min Est GFR ( Amer) Est GFR (Non-Af Amer) BUN/Creatinine Ratio (10-20) Glucose (70-99) mg/dl Lactate (0.4-2.0) mmol/L Calcium (8.5-10.1) mg/dl Phosphorus (2.5-4.9) mg/dl Magnesium (1.8-2.4) mg/dl Urine Color Urine Appearance (Clear) Urine pH (4.5-7.5) Ur Specific [place] (1.000-1.030) Urine Protein (Negative) Urine Glucose (UA) (Negative) Urine Ketones (Negative) Urine Blood (Negative) Urine Nitrite (Negative) Urine Bilirubin (Negative) Urine Urobilinogen (Negative) Ur Leukocyte Esterase (Negative) Stl C. diff Tox B Gene (Neg) Influenza Type A (PCR) Neg for Influ A (Neg) Influenza Type B (PCR) Neg for Influ B (Neg) Diagnostic Findings ABDOMEN AND PELVIS CT WITH IV CONTRAST CT DOSE: 438.92 mGy.cm HISTORY: Acute nausea and vomiting with history of small bowel obstruction. n/v, h/o sbo TECHNIQUE: Multiaxial CT images of the abdomen and pelvis were performed follow ing the IV administration of 89 cc of Optiray 320, A dose lowering technique was utilized adhering to the principles of ALARA. COMPARISON STUDY: CT abdomen and pelvis 05/08/2019 FINDINGS: Clear lung bases. No pneumatosis or pneumoperitoneum. Imaged inferior cardiac chambers are unremarkable. Spleen, pancreas, gallbladder and adrenal glands appear unremarkable. There are 2 hypodense foci of the left hepatic lobe measuring up to 1.3 cm suggestive of hepatic cysts. Patency of the hepatic and portal veins. Kidneys and ureters are unremarkable. Mild bladder wall thickening with partial distention. Endometrium measures the upper limits of normal at 5 mm. Unremarkable appearance of the adnexa. Severe mixed plaque of the abdominal aorta with tortuosity. No adenopathy. Postoperative changes of subtotal colectomy with right lower quadrant ileostomy. There are several loops of small bowel wall thickening with perienteric stranding and trace free pelvic fluid. Parastomal hernia is redemonstrated. No bowel obstruction. Inflammatory stranding extends into the hernia and subcutaneous tissues. There is peripheral enhancement surrounding a 1.9 x 0.8 x 3.0 cm fluid collection of the ventral abdominal wall along the ventral incision. Skin page are noted. A few prominent likely reactive lymph nodes are seen within this area measuring up to 7 mm. No drainable fluid collection. Multilevel degenerative changes of the spine. IMPRESSION: 1. Postoperative changes of subtotal colectomy with right lower quadrant ileostomy and persistent parastomal hernia. Interval postoperative changes with ventral midline skin page and incision. Fluid and edema within the deep subcutaneous incision is noted with an ill-defined peripherally enhancing fluid collection measuring up to 1.9 x 0.8 x 3.0 cm. Postoperative seroma, hematoma or abscess are differential considerations. 2. Multiple loops of small bowel wall thickening may reflect an associated nonspecific enteritis. No bowel obstruction. 3. Mesenteric edema and trace mesenteric free fluid may be reactive or postsurgical. 4. Endometrium measures within the upper limits of normal at 5 mm. Findings could be correlated with a follow-up nonemergent pelvic ultrasound. 5. Additional findings as above.
[2019-06-16 07:00] LABS: Hematocrit (blood only) 27.2 % (37-47); Hemoglobin 9.1 g/dL (12.0-16.0); Mean Corpuscular Hemoglobin 31.4 pg (25-34); Mean Corpuscular Hgb Conc 33.5 g/dL (32-36); Mean Corpuscular Volume 93.8 fL (80-100); RDW Coefficient of Variation 13.8 % (11.5-14.5); RDW Standard Deviation 47.6 fL (36.4-46.3); White Blood Count 3.64 K/uL (4.8-10.8)
[2019-06-16 07:02] LABS: Mean Platelet Volume 10.1 fL (7.4-10.4); Platelet Count 55 K/uL (130-400)
[2019-06-16 07:32] LABS: BUN Creatinine Ratio 17.7 (10-20); Calcium 8.6 mg/dl (8.5-10.1); Creatinine Clr Calc Pharmacy 65.5 ml/min; Est GFR (African American) 101.2; Est GFR (Non-African American) 87.3; Magnesium 1.9 mg/dl (1.8-2.4); Phosphorus 2.5 mg/dl (2.5-4.9); Potassium 3.6 mmol/L (3.5-5.1)
--- NOTE | 2019-06-16 08:18 | Surgery Progress Note ---
Date of Service June 16, 2019 Assessment & Plan (1) Intractable vomiting with nausea: Etiology of the nausea and vomiting is unclear. It may be related to her antibiotics. It may be related to an enteritis. There is no evidence of bowel obstruction. She has a small collection seen on CT was this may be a seroma. There is a possibility that it is a remaining abscess but there were no other associated findings such as fever erythema tenderness of the abdomen. Nausea and vomiting resolved ostomy functioning no abdominal pain electrolytes wnl Plan: Advance to full liquids for lunch continue medical management pt/ot consults will remove page later today Discussed with Dr. Teixeira who is to see pt later today Subjective feeling better no further nausea or vomiting no abdominal pain urinating well tolerating clear liquids Physical Exam Constitutional: WD/WN, vitals as above no acute distress Respiratory: normal respiratory effort Gastrointestinal (Abdomen): Inspection/Auscultation: abdomen normal to inspection; abdomen not distended Percussion/Palpation: abdomen soft; abdomen nontender, no guarding and abdomen not rigid Skin: no rashes, warm and dry + incision ([place] presents) Psychiatric: A+Ox3, euthymic affect Results & Data Vital Signs (Past 12 Hours) Vital Signs Temp Pulse Resp BP Pulse Ox 06/16/19 07:13 36.8 C 70 16 115/69 95 06/15/19 23:32 36.8 C 73 20 119/76 96 Laboratory Results 06/16/19 06/16/19 Range/Units 06:36 06:36 WBC 3.64 L (4.8-10.8) K/uL RBC 2.90 L (4.2-5.4) M/uL Hgb 9.1 L (12.0-16.0) g/dL Hct 27.2 L (37-47) % MCV 93.8 (80-100) fL MCH 31.4 (25-34) pg MCHC 33.5 (32-36) g/dL RDW Std Deviation 47.6 H (36.4-46.3) fL RDW Coeff of Deandre 13.8 (11.5-14.5) % Plt Count 55 L (130-400) K/uL MPV 10.1 (7.4-10.4) fL Sodium 141 (136-145) mmol/L Potassium 3.6 (3.5-5.1) mmol/L Chloride 109 H (98-107) mmol/L Carbon Dioxide 28 (21-32) mmol/L Anion Gap 4.0 (3-11) BUN 11 (7-18) mg/dl Creatinine 0.64 (0.6-1.2) mg/dl Est Cr Clr Drug Dosing 65.5 ml/min Est GFR ( Amer) 101.2 Est GFR (Non-Af Amer) 87.3 BUN/Creatinine Ratio 17.7 (10-20) Glucose 91 (70-99) mg/dl Calcium 8.6 (8.5-10.1) mg/dl Phosphorus 2.5 (2.5-4.9) mg/dl Magnesium 1.9 (1.8-2.4) mg/dl Microbiology 06/14/19 16:41 Aerobic Blood Culture - Preliminary Blood No growth in Aerobic bottle after 24 hours. Anaerobic Blood Culture - Preliminary No growth in Anaerobic bottle after 24 hours. 06/14/19 16:14 Aerobic Blood Culture - Preliminary Blood No growth in Aerobic bottle after 24 hours. Anaerobic Blood Culture - Preliminary No growth in Anaerobic bottle after 24 hours.
[2019-06-16] MEDS: ASPIRIN 81 MG ECTAB PO SCH (08:22)
[2019-06-16] MEDS: ROSUVASTATIN CALCIUM 5 MG TAB PO SCH (08:22)
[2019-06-16] MEDS: predniSONE 5 MG TAB PO SCH (08:22)
[2019-06-16] MEDS: PANTOprazole 40 MG TAB PO SCH (08:22)
[2019-06-16] MEDS: LACTOBACILLUS ACIDOPHILUS (FLORANEX) TAB PO SCH (08:22)
--- NOTE | 2019-06-16 17:36 | Hospitalist Progress Note ---
Date of Service June 16, 2019 Assessment & Plan (1) Intractable vomiting with nausea: ? 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 Interval postoperative changes with ventral midline skin page and incision. Fluid and edema within the deep subcutaneous incision is noted with an ill-defined peripherally enhancing fluid collection measuring up to 1.9 x 0.8 x 3.0 cm. Postoperative seroma, hematoma or abscess are differential considerations. Multiple loops of small bowel wall thickening may reflect an associated nonspecific enteritis. No bowel obstruction. Mesenteric edema and trace mesenteric free fluid may be reactive or postsurgical. Endometrium measures within the upper limits of normal at 5 mm. Findings could be correlated with a follow-up nonemergent pelvic ultrasound. --No evidence of bowel obstruction --Stool for C. difficile: Negative --Antibiotics discontinued --Received IV fluids --Advance to full liquid diet --Antiemetics PRN Continue current management and advance diet as tolerated Hypokalemia Hypomagnesemia Hypophosphatemia Likely due to GI losses Replete electrolytes as needed (2) BUTCH (acute kidney injury): Baseline ~ 0.7 Likely prerenal due to nausea, vomiting, poor oral intake Received IV fluids Renal function back to baseline Monitor renal function Avoid nephrotoxic agents as able Tongue discoloration Likely secondary to Zyvox Denies pain, itching, dysphagia or odynophagia Continue oral hygiene Monitor (3) Hypomagnesemia: (4) Hypophosphatemia: As above (5) Elevated lactic acid level: Lactic acid 2.6 -> 2.3>>1.7 Likely secondary to dehydration (6) Thickened endometrium: Noted to be [address] ABD/pelvis Outpatient follow-up pelvic ultrasound and OBGYN evaluation (7) Pancytopenia: Possible drug-induced pancytopenia Likely due to Zyvox Monitor CBC (8) Postoperative wound infection: Recently admitted to [facility] 05/08 through 05/20 for incarcerated parastomal hernia status post repair. Postoperative course complicated by postop wound infection that grew E. coli and enterococcus faecalis. Patient was discharged on a 4-week course of p.o. Zyvox and cefdinir. --Patient only has 4 days remaining of 4-week course CT ABD/pelvis showing small incisional fluid collection, seroma versus abscess (suspect seroma, no leukocytosis or fever, incisional site is without erythema and drainage) --Appreciate surgery input --Plan for page removal today --May need repeat abdominal ultrasound as outpatient for monitoring of fluid collection (9) Polymyalgia rheumatica: On 5 mg daily (10) Leg edema: On furosemide at home -Hold diuretics for now secondary to dehydration (11) GERD (gastroesophageal reflux disease): Continue PPI (12) Dyslipidemia: Continue statin (13) DVT prophylaxis: SCDs Re: Thrombocytopenia CODE STATUS Full code Disposition PT OT prior to discharge Expected discharge home when medically stable Subjective Patient is seen and examined at bedside Doing well today No nausea, vomiting, abdominal pain today Started on full liquid diet today Denies any abdominal pain, chest pain, shortness of breath, dizziness Offers no other complaints Review of Systems Review of Systems: All systems reviewed & are unremarkable except as noted in HPI & below Physical Exam Physical Exam: Physical Exam: Vitals signs as noted above General Appearance:Moderately built and nourished, no apparent distress Head: normocephalic, Atraumatic Eyes: normal inspection, EOMI Neck: supple, Trachea midline Respiratory/Chest: Normal breath sounds, CTA Cardiovascular: S1, S2, No murmur Abdomen/GI:Soft, Non tender, + Ileostomy, Bowel sounds present Extremities/Musculoskelatal:normal inspection, no edema Neurologic/Psych:AAOX3, grossly no focal neurological deficits Skin: normal color, warm Results & Data Vital Signs (Past 12 Hours) Vital Signs Temp Pulse Resp BP Pulse Ox 06/16/19 15:51 36.9 C 65 18 108/71 94 06/16/19 07:13 36.8 C 70 16 115/69 95 Laboratory Results Short CBC 06/16/19 Range/Units 06:36 WBC 3.64 L (4.8-10.8) K/uL Hgb 9.1 L (12.0-16.0) g/dL Hct 27.2 L (37-47) % Plt Count 55 L (130-400) K/uL BMP 06/16/19 06:36 Sodium 141 Potassium 3.6 Chloride 109 H Carbon Dioxide 28 BUN 11 Creatinine 0.64 Glucose 91 Calcium 8.6
[2019-06-17 06:53] LABS: Hematocrit (blood only) 27.1 % (37-47); Mean Corpuscular Hgb Conc 33.2 g/dL (32-36); Mean Corpuscular Volume 93.4 fL (80-100); RDW Coefficient of Variation 13.6 % (11.5-14.5); RDW Standard Deviation 46.7 fL (36.4-46.3)
[2019-06-17 06:55] LABS: Mean Platelet Volume 10.3 fL (7.4-10.4); Platelet Count 69 K/uL (130-400)
--- NOTE | 2019-06-17 07:04 | Surgery Progress Note ---
Date of Service June 17, 2019 Subjective She feels well this morning Tolerated low fiber diet last night Colostomy continues to function Denies abdominal pain Has not had fever There is been no drainage from the incision Physical Exam Gastrointestinal (Abdomen): Inspection/Auscultation: + abdominal surgical incision (Clean, dry and intact); abdomen not distended Percussion/Palpation: abdomen soft; abdomen nontender Results & Data Vital Signs (Past 12 Hours) Vital Signs Temp Pulse Resp BP Pulse Ox 06/16/19 23:26 36.3 C L 78 18 127/84 95
--- NOTE | 2019-06-17 07:06 | Surgery Progress Note ---
Date of Service June 17, 2019 Assessment & Plan (1) Intractable vomiting with nausea: She is doing much better No evidence of infection at the present time If tolerates low fiber diet for breakfast can discharge to home She has an appointment scheduled with me at the end of the month I think she has completed the necessary course of antibiotics We will not need further radiologic evaluation unless clinically indicated Subjective Feels well today Ostomy is functioning Denies abdominal pain Tolerated low fiber diet Has not had fever Physical Exam Gastrointestinal (Abdomen): Inspection/Auscultation: + abdominal surgical incision (Clean, dry and intact); abdomen not distended Percussion/Palpation: abdomen soft; abdomen nontender Results & Data Vital Signs (Past 12 Hours) Vital Signs Temp Pulse Resp BP Pulse Ox 06/16/19 23:26 36.3 C L 78 18 127/84 95
[2019-06-17 07:25] LABS: BUN Creatinine Ratio 12.4 (10-20); Calcium 8.3 mg/dl (8.5-10.1); Creatinine Clr Calc Pharmacy 60.8 ml/min; Est GFR (African American) 98.7; Est GFR (Non-African American) 85.2; Potassium 3.4 mmol/L (3.5-5.1)
[2019-06-17] MEDS: LACTOBACILLUS ACIDOPHILUS (FLORANEX) TAB PO SCH (08:15)
[2019-06-17] MEDS: predniSONE 5 MG TAB PO SCH (08:15)
[2019-06-17] MEDS: ROSUVASTATIN CALCIUM 5 MG TAB PO SCH (08:15)
[2019-06-17] MEDS: ASPIRIN 81 MG ECTAB PO SCH (08:16)
[2019-06-17] MEDS: PANTOprazole 40 MG TAB PO SCH (08:16)
--- NOTE | 2019-06-17 10:50 | Hospitalist Progress Note ---
Date of Service June 17, 2019 Assessment & Plan (1) Intractable vomiting with nausea: ? 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 Interval postoperative changes with ventral midline skin page and incision. Fluid and edema within the deep subcutaneous incision is noted with an ill-defined peripherally enhancing fluid collection measuring up to 1.9 x 0.8 x 3.0 cm. Postoperative seroma, hematoma or abscess are differential considerations. Multiple loops of small bowel wall thickening may reflect an associated nonspecific enteritis. No bowel obstruction. Mesenteric edema and trace mesenteric free fluid may be reactive or postsurgical. Endometrium measures within the upper limits of normal at 5 mm. Findings could be correlated with a follow-up nonemergent pelvic ultrasound. --No evidence of bowel obstruction --Stool for C. difficile: Negative --Antibiotics discontinued --Received IV fluids --Advance to full liquid diet --Antiemetics PRN Continue current management and advance diet as tolerated Hypokalemia Hypomagnesemia Hypophosphatemia Likely due to GI losses Replete electrolytes as needed (2) BUTCH (acute kidney injury): Baseline ~ 0.7 Likely prerenal due to nausea, vomiting, poor oral intake Received IV fluids Renal function back to baseline Monitor renal function Avoid nephrotoxic agents as able Tongue discoloration Likely secondary to Zyvox Denies pain, itching, dysphagia or odynophagia Continue oral hygiene Monitor (3) Hypomagnesemia: (4) Hypophosphatemia: As above (5) Elevated lactic acid level: Lactic acid 2.6 -> 2.3>>1.7 Likely secondary to dehydration (6) Thickened endometrium: Noted to be [address] ABD/pelvis Outpatient follow-up pelvic ultrasound and OBGYN evaluation (7) Pancytopenia: Possible drug-induced pancytopenia Likely due to Zyvox Monitor CBC (8) Postoperative wound infection: Recently admitted to [facility] 05/08 through 05/20 for incarcerated parastomal hernia status post repair. Postoperative course complicated by postop wound infection that grew E. coli and enterococcus faecalis. Patient was discharged on a 4-week course of p.o. Zyvox and cefdinir. --Patient only has 4 days remaining of 4-week course CT ABD/pelvis showing small incisional fluid collection, seroma versus abscess (suspect seroma, no leukocytosis or fever, incisional site is without erythema and drainage) --Appreciate surgery input --Plan for page removal today --May need repeat abdominal ultrasound as outpatient for monitoring of fluid collection (9) Polymyalgia rheumatica: On 5 mg daily (10) Leg edema: On furosemide at home -Hold diuretics for now secondary to dehydration (11) GERD (gastroesophageal reflux disease): Continue PPI (12) Dyslipidemia: Continue statin (13) DVT prophylaxis: SCDs Re: Thrombocytopenia CODE STATUS Full code Disposition PT OT prior to discharge Expected discharge home later today if no N/V Labs checked ROS-No Headache, No Visual Changes, No Nausea, No Vomiting, No Fever, No Chills, No Neck Pain or Stiffness, No Chest Pain, No Palpitations, No SOB, No WARD, No Cough, No Sputum, No Wheezing, No Abdominal Pain, No Diarrhea, No Hematemesis, No Hemoptysis, No Unexpected Weight Loss, No Flank pain, No Melena, No Hematochezia, No Frequency, No Urgency, No Burning, No Hematuria, No Rashes, No Diaphoresis. Appetite is Normal Physical Exam Gen-AAO x 3, NAD, Afebrile, Black Tongue Head-NCAT, EOMI, PERRLA, Anicteric Sclera, No Posterior Pharyngeal Erythema Neck-Supple, No JVD, No Thyromegaly, No Masses, No LAD, No Bruits Lungs-Clear to Auscultation Bilaterally, No Rales, No Rhonchi, No Wheezing, No Crepitus Chest-No S4, +S1, +S2, No S3, No Murmurs, No Rubs, No Gallops, No Ectopy Abdomen-Soft, Bowel Sounds Present, Non Tender, Non Distended, No Hepatomegaly, No Splenomegaly, No Palpable Masses, No Rebound, No Rigidity, No Guarding Musculoskeletal-Full Range of Motion Bilaterally, No CVAT Extremities-No Cyanosis, No Clubbing, No Edema Nuero-Cranial Nerves II-XII grossly intact, Motor WNL, DTRs WNL, Strength WNL, Non Focal Psych-Normal Mood Results & Data Vital Signs (Past 12 Hours) Vital Signs Temp Pulse Resp BP Pulse Ox 06/17/19 07:47 36.7 C 55 L 16 115/75 97 06/16/19 23:26 36.3 C L 78 18 127/84 95
--- NOTE | 2019-06-17 10:53 | Discharge Summary ---
Date of Service June 17, 2019 Admission HPI Per Admitting Provider 73-year-old female who presents the ED for evaluation of nausea and vomiting. Patient most recently admitted to [facility] 05/08 through 05/20 for incarcerated parastomal hernia status post repair. Postoperative course complicated by postop wound infection that grew E. coli and enterococcus faecalis. Patient was discharged on a 4-week course of p.o. Zyvox and cefdinir. Patient reports she has been doing well until about 3 days ago. She reports she developed nausea and very poor appetite. She has had several episodes of vomiting. Denies hematemesis and coffee-ground emesis. Has noted more liquid stools from i leostomy. No abdominal pain. Incisional site continues to heal well without surrounding erythema or drainage. No fevers or chills. She denies chest pain and shortness of breath. No lightheadedness, dizziness, diaphoresis, syncopal events. She denies any urinary symptoms. In the ED, labs show a mild pancytopenia, creatinine 1.2, lactate 2.6, phosphorus 2.2, magnesium 1.4. CT ABD/pelvis suggesting enteritis with a small fluid collection within prior incision. Patient was given IV diphenhydramine, IV famotidine, IV prochlorperazine, IVF, and phosphorus and magnesium replacement. Admission Exam Per Admitting Provider VS noted and reviewed oriented x 3 , not in distress, speaks in sentences with no effort nor accessory muscle use normal rate, regular rhythm, no murmurs clear breath sounds bilaterally non distended, hypoactive bowel sounds, soft, nontender surgical site: page in place, no tenderness/warmth/erythema/discharge ileostomy: (+) brown, watery stools no bipedal edema, erythema, warmth no neuro deficits Principal Diagnosis Gen-AAO x 3, NAD, Afebrile, Black Tongue Head-NCAT, EOMI, PERRLA, Anicteric Sclera, No Posterior Pharyngeal Erythema Neck-Supple, No JVD, No Thyromegaly, No Masses, No LAD, No Bruits Lungs-Clear to Auscultation Bilaterally, No Rales, No Rhonchi, No Wheezing, No Crepitus Chest-No S4, +S1, +S2, No S3, No Murmurs, No Rubs, No Gallops, No Ectopy Abdomen-Soft, Bowel Sounds Present, Non Tender, Non Distended, No Hepatomegaly, No Splenomegaly, No Palpable Masses, No Rebound, No Rigidity, No Guarding Musculoskeletal-Full Range of Motion Bilaterally, No CVAT Extremities-No Cyanosis, No Clubbing, No Edema Nuero-Cranial Nerves II-XII grossly intact, Motor WNL, DTRs WNL, Strength WNL, Non Focal Psych-Normal Mood Discharge Exam Intractable vomiting with nausea: Hypokalemia Hypomagnesemia Hypophosphatemia BUTCH (acute kidney injury): Elevated lactic acid level: Thickened endometrium: Pancytopenia: Postoperative wound infection: Polymyalgia rheumatica: Leg edema: GERD (gastroesophageal reflux disease): Dyslipidemia: Discharge Data Allergies Allergy/AdvReac Type Severity Reaction Status Date / Time Penicillins Allergy Severe Hives Verified 06/14/19 16:10 Cipro Allergy Intermediate SEVERE RASH Verified 01/24/14 12:55 ciprofloxacin Allergy Intermediate SEVERE RASH Verified 06/14/19 16:10 adhesive Allergy Mild Rash Verified 06/14/19 16:10 ondansetron [From Zofran] Allergy Mild Rash Verified 06/14/19 16:10 codeine Allergy Unknown n/v Verified 06/14/19 16:10 pinpoint pupils infliximab Allergy Unknown Unknown Verified 06/14/19 16:10 Quinolones Allergy Unknown Unknown Verified 06/14/19 16:10 tramadol Allergy Unknown bradycardia Verified 06/14/19 16:10 vancomycin Allergy Unknown Maris Verified 06/14/19 16:10 syndrome NONSTEROIDAL Allergy Unknown NAPROXEN Uncoded 06/14/19 16:10 Consultations 06/14/19 17:38 ED Decision to Admit Stat 06/14/19 19:47 Consult Case Management - Discharge Planning Routine Consult General Surgery Routine Ordered Studies 06/14/19 15:59 CT abd pelvis IV con only Stat Hospital Course (1) Intractable vomiting with nausea: ? 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 Interval postoperative changes with ventral midline skin page and incision. Fluid and edema within the deep subcutaneous incision is noted with an ill-defined peripherally enhancing fluid collection measuring up to 1.9 x 0.8 x 3.0 cm. Postoperative seroma, hematoma or abscess are differential considerations. Multiple loops of small bowel wall thickening may reflect an associated nonspecific enteritis. No bowel obstruction. Mesenteric edema and trace mesenteric free fluid may be reactive or postsurgical. Endometrium measures within the upper limits of normal at 5 mm. Findings could be correlated with a follow-up nonemergent pelvic ultrasound. --No evidence of bowel obstruction --Stool for C. difficile: Negative --Antibiotics discontinued --Received IV fluids --Advance to full liquid diet --Antiemetics PRN Continue current management and advance diet as tolerated Hypokalemia Hypomagnesemia Hypophosphatemia Likely due to GI losses Replete electrolytes as needed (2) BUTCH (acute kidney injury): Baseline ~ 0.7 Likely prerenal due to nausea, vomiting, poor oral intake Received IV fluids Renal function back to baseline Monitor renal function Avoid nephrotoxic agents as able Tongue discoloration Likely secondary to Zyvox Denies pain, itching, dysphagia or odynophagia Continue oral hygiene Monitor (3) Hypomagnesemia: (4) Hypophosphatemia: As above (5) Elevated lactic acid level: Lactic acid 2.6 -> 2.3>>1.7 Likely secondary to dehydration (6) Thickened endometrium: Noted to be [address] ABD/pelvis Outpatient follow-up pelvic ultrasound and OBGYN evaluation (7) Pancytopenia: Possible drug-induced pancytopenia Likely due to Zyvox Monitor CBC (8) Postoperative wound infection: Recently admitted to [facility] 05/08 through 05/20 for incarcerated parastomal hernia status post repair. Postoperative course complicated by postop wound infection that grew E. coli and enterococcus faecalis. Patient was discharged on a 4-week course of p.o. Zyvox and cefdinir. --Patient only has 4 days remaining of 4-week course CT ABD/pelvis showing small incisional fluid collection, seroma versus abscess (suspect seroma, no leukocytosis or fever, incisional site is without erythema and drainage) --Appreciate surgery input --Plan for page removal today --May need repeat abdominal ultrasound as outpatient for monitoring of fluid collection (9) Polymyalgia rheumatica: On 5 mg daily (10) Leg edema: On furosemide at home -Hold diuretics for now secondary to dehydration (11) GERD (gastroesophageal reflux disease): Continue PPI (12) Dyslipidemia: Continue statin (13) DVT prophylaxis: DC home today and f/u c Dr Teixeira and Dr Murray Total Time Total Time Spent Total Time Spent (In Minutes): 45 mins Total Time Includes: Examination of the Patient, Discharge Planning, Medication Reconciliation and Communication With Other Providers Discharge Plan Discharge Items Patient Disposition: Home - Self-Care Reason For Visit: N/V,DEHYDRATION Discharge Diagnosis: Intractable vomiting with nausea: Hypokalemia Hypomagnesemia Hypophosphatemia BUTCH (acute kidney injury): Elevated lactic acid level: Thickened endometrium: Pancytopenia: Postoperative wound infection: Polymyalgia rheumatica: Leg edema: GERD (gastroesophageal reflux disease): Dyslipidemia: Activity: Resume your previous activity Lifting: Gradually increase as tolerated Bathing: No limitations Sexual Activity: When tolerated Driving/Machine Use: No limitations Weightbearing: Full weightbearing Non-emergency contact: Primary Care Provider, Surgeon and Specialist Call non-emergency contact if: you have any medication questions Follow-up/Referrals: Frantz Teixeira MD [Physician] - (7-10 days) Derrick Ruiz DO [Primary Care Provider] - Ronda Murray DO [Physician] - (2-3 weeks) Diet: Low Fiber Addtl Attending Provider Instructions: None Pending Studies at Discharge: No Stand-Alone Forms: [employer], Smoking Cessation Medications and DC Order Prescriptions: Continued aspirin [Adult Low Dose Aspirin] 81 mg tablet,delayed release (DR/EC) 81 mg PO DAILY RF: 0 potassium chloride 10 mEq capsule, extended release 10 meq PO 3XWK PRN (Reason: With Furosemide) RF: 0 Prilosec OTC 20 mg tablet,delayed release (DR/EC) 20 mg PO DAILY RF: 0 furosemide [Lasix] 20 mg Tablet 20 mg PO 3XWK RF: 0 prednisone 5 mg Tablet 5 mg PO DAILY RF: 0 rosuvastatin 5 mg Tablet 5 mg PO DAILY RF: 0 Culturelle 10 billion cell capsule 1 cap PO DAILY Qty: 30 RF: 2 Discontinued cefdinir 300 mg capsule 300 mg PO BID Qty: 56 RF: 0 linezolid [Zyvox] 600 mg Tablet 600 mg PO BID RF: 0 Discharge Orders: Discharge Order (Routine); Ordered 06/17/19 Ordered By: Jabier Parker Admission Data Admit Date/Time: 06/14/19 18:31 Attending Provider: Jabier Parker Admit Provider: Sharif Arevalo Primary Care Provider: Derrick Ruiz Other Providers: Pollo Mejia ; Frantz Teixeira
== END 2019-06-17 12:30 | disposition home or self-care (01) | DRG 391 ==
LOC: ED 15:43 → 2W 18:31 → SUATTDRO 18:31 → 2W 19:02

== ENCOUNTER 2020-02-26 12:32 | Inpatient (IN) ==
[2020-02-26 13:22] LABS: Basophils # (auto) 0.04 K/uL (0-0.2); Basophils % (auto) 0.2 %; Eosinophils # (auto) 0.06 K/uL (0-0.5); Eosinophils % (auto) 0.4 %; Hematocrit (blood only) 42.2 % (37-47); Hemoglobin 14.2 g/dL (12.0-16.0); Immature Granulocytes # (auto) 0.05 K/uL (0.00-0.02); Immature Granulocytes % (auto) 0.3 %; Lymphocytes # (auto) 1.23 K/uL (1.2-3.4); Lymphocytes % (auto) 7.6 %; Mean Corpuscular Hemoglobin 32.9 pg (25-34); Mean Corpuscular Hgb Conc 33.6 g/dL (32-36); Mean Corpuscular Volume 97.9 fL (80-100); Mean Platelet Volume 10.4 fL (7.4-10.4); Monocytes % (auto) 9.3 %; Neutrophils # (auto) 13.32 K/uL (1.4-6.5); Neutrophils % (auto) 82.2 %; Platelet Count 303 K/uL (130-400); RDW Coefficient of Variation 13.5 % (11.5-14.5); RDW Standard Deviation 48.8 fL (36.4-46.3); Red Blood Count 4.31 M/uL (4.2-5.4)
[2020-02-26] MEDS ORDERED: OPTIRAY 320 125ml IV ONE (13:24)
--- NOTE | 2020-02-26 13:29 | CT Scan Report ---
HEAD CT NONCONTRAST CT DOSE: HISTORY: Confusion. Stroke evaluation TECHNIQUE: Multiaxial CT images of the head were performed without the use of intravenous contrast. A utomated exposure control was utilized for this study. A dose lowering technique was utilized adheri ng to the principles of ALARA. Comparison: None. Findings: Mild motion artifact. The paranasal sinuses and mastoid air cells are clear. The calvarium and skull base are intact. The ventricles and sulci are within normal limits. There is no mass, hemat tarun, midline shift, or acute infarct. Impression: No acute intracranial abnormality. ACT 112: Negative or not required by law. Electronically signed by: Dillon Saldivar M.D. 02/26/2020 1:27 PM
[2020-02-26 13:30] LABS: Alanine Aminotransferase 31 U/L (12-78); Albumin Level 3.7 gm/dl (3.4-5.0); Aspartate Aminotransferase 17 U/L (15-37); BUN Creatinine Ratio 27.3 (10-20); Blood Urea Nitrogen 24 mg/dl (7-18); Calcium 9.6 mg/dl (8.5-10.1); Carbon Dioxide 27 mmol/L (21-32); Chloride 106 mmol/L (98-107); Est GFR (Non-African American) 63.8; Glucose 97 mg/dl (70-99); Magnesium 1.9 mg/dl (1.8-2.4); Potassium 3.5 mmol/L (3.5-5.1); Sodium 141 mmol/L (136-145)
--- NOTE | 2020-02-26 13:34 | CT Scan Report ---
CT ANGIOGRAPHY OF THE NECK WITH CONTRAST CLINICAL HISTORY: Stroke evaluation. COMPARISON STUDY: No previous studies for comparison. Technique: CT angiography of the carotid and vertebral arteries was obtained using AeropostaleraPlayrcart 320 IV and 3D reconstruction on an independent workstation. NASCET criteria was utilized. Automated exposure c ontrol was utilized for the study. A dose lowering technique was utilized adhering to the principles of ALARA. Findings: Lung apices are clear. There is no cervical lymphadenopathy. There is no cervical spine fra cture. Epiglottis is normal. The bilateral common carotid, cervical internal carotid and vertebral ar teries are patent. There is minimal atherosclerotic plaque. There is no dissection. No intraluminal t hrombus is noted. CTA of the head will be reported separately. IMPRESSION: Unremarkable CTA of the neck. No significant stenosis. No dissection. Mild atherosclerotic plaque. ACT 112: Negative or not required by law. Electronically signed by: Barak Maza M.D. 02/26/2020 1:33 PM
[2020-02-26 13:35] LABS: Alkaline Phosphatase 59 U/L (45-117); Bilirubin,Total 0.7 mg/dl (0.2-1); Globulin 3.8 gm/dl (2.5-4.0); Total Protein 7.5 gm/dl (6.4-8.2); Troponin I < 0.015 ng/ml (0-0.045)
--- NOTE | 2020-02-26 13:39 | CT Scan Report ---
CT ANGIOGRAM OF THE BRAIN CLINICAL HISTORY: Strokelike symptoms. Change in mental status. COMPARISON STUDY: Unenhanced CT of the brain performed concurrently on 02/26/2020. TECHNIQUE: Following the IV administration of 119 cc of Optiray 320, CT angiogram of the brain was pe rformed from the skull base to the vertex. Images are reviewed in the axial, sagittal, and coronal pl anes. 3-D MIPS images are created and assessed. IV contrast was administered without complication. A dose lowering technique was utilized adhering to the principles of ALARA. The examination is modestl y degraded by motion artifact. CT DOSE: 1153.87 mGy.cm FINDINGS: Brain parenchyma: There is age-related involutional change noting mild subcortical and periventricula r microangiopathic disease. There is no hemorrhage, mass effect, or evidence of acute territorial isc hemia by CT criteria. There is no evidence of enhancing mass lesion on the angiogram phase images. No extra-axial fluid collection is seen. Carrasquillo-white matter differentiation is preserved. Ventricles, sulci, and cisterns: Prominent secondary to involutional change. CT angiogram of the brain: There is mild atherosclerotic calcification of the cavernous carotid arter ies. There is origin of the right posterior cerebral artery. There is a 3 mm aneurysm seen volodymyr ing from the origin of the right posterior communicating artery, best seen on axial image #88. No add itional aneurysm is identified. The internal carotid arteries are widely patent, as are the anterior and middle cerebral arteries. The vertebrobasilar system and posterior cerebral arteries are widely p atent. The vertebral arteries are codominant. There is high-grade stenosis or focal vessel cutoff eun ntified throughout the intracranial circulation. Dural sinuses: Clear as visualized. Orbits: The bony orbits are intact. The orbital contents are normal as visualized. Sinuses and mastoids: The visualized paranasal sinuses are clear. There is a small left mastoid effus ion. The right mastoid air cells are well pneumatized. Calvarium: Unremarkable. IMPRESSION: 1. There is no hemorrhage, mass effect, or evidence of acute territorial ischemia by CT criteria noti ng angiographic phase technique. 2. 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 3. Otherwise unremarkable CT angiogram of the brain. ACT 112: Negative or not required by law. Electronically signed by: Octaviano Padilla M.D. 02/26/2020 1:38 PM
[2020-02-26] MEDS: HYDROmorphone INJ 0.5 MG/0.5 ML SYR IV PRN ×2 (13:46→14:47)
[2020-02-26] MEDS ORDERED: DEXAMETHASONE SOD INJ 10 MG/ML VIAL IV ONE (14:07)
[2020-02-26] MEDS ORDERED: cefTRIAXone SODIUM 2,000 MG/70 ML BAG IV STA (14:07)
--- NOTE | 2020-02-26 14:19 | XRay Report ---
XR chest 1V portable HISTORY: Headache. Hypertension. COMPARISON: Chest 06/14/2019. FINDINGS: Stable blunting of the left lateral costophrenic sulcus. This is likely chronic. Otherwise, lungs are clear. No pleural effusions. No pneumothorax. The cardiac silhouette remains mildly enlarg ed. IMPRESSION: No significant change compared to the prior study. No acute process. ACT 112: Negative or not required by law. Electronically signed by: Dillon Saldivar M.D. 02/26/2020 2:18 PM
[2020-02-26 14:20] LABS: Prothrombin Time 10.7 Seconds (9.0-12.0)
[2020-02-26 14:24] LABS: Partial Thromboplastin Ratio 0.7; Partial Thromboplastin Time < 20.0 Seconds (21.0-31.0)
[2020-02-26] MEDS ORDERED: DEXTROSE 5% IV ONE ×2 (14:30→15:15)
[2020-02-26] MEDS ORDERED: TRIMETH IV ONE (14:30)
[2020-02-26] MEDS ORDERED: SULFA IV ONE (14:30)
[2020-02-26] MEDS ORDERED: LIDOCAINE HCL 1% 20 ML VIAL ONE (14:42)
[2020-02-26] MEDS ORDERED: VANCOMYCIN HCL 1,500 MG in SODIUM CHLORIDE 0.9% 500 ML IV STA (14:55)
[2020-02-26] MEDS ORDERED: ACYCLOVIR SOD IV ONE (15:15)
[2020-02-26 15:30] LABS: CSF Glucose 54 mg/dl (40-70)
[2020-02-26 15:31] LABS: Total Protein CSF 57.7 mg/dl (15-45)
[2020-02-26 15:44] LABS: Appearance CSF Clear; CSF Count Tube # 3; CSF Xanthrochromic No xanthochromia; Color CSF Colorless; Red Blood Cell CSF (A) 54 /uL (0-); White Blood Cell CSF (A) 0 /uL (0-5)
[2020-02-26 15:47] LABS: Appearance Urine Clear (Clear); Bacteria Urine Automated Negative (Negative); Bilirubin Urine Negative (Negative); Blood Urine Trace (Negative); Color Urine Yellow; Epithelial Cell Urine Auto 20-30 /lpf (0-5); Glucose Urine UA Negative (Negative); Ketones Urine Negative (Negative); Leukocyte Esterase Urine Negative (Negative); Nitrite Urine Negative (Negative); Protein Urine Negative (Negative); RBC Urine Automated 0-4 /hpf (0-4); Specific Gravity Urine > 1.045 (1.000-1.030); Urobilinogen Urine Negative (Negative); pH Urine 7.5 (4.5-7.5)
--- NOTE | 2020-02-26 15:49 | Emergency Department Note ---
Impression & Plan AMS (altered mental status), Headache, Leukocytosis ED Provider Note INFORMANT: Patient ED PROVIDER(S): Yousuf Paniagua MD CHIEF COMPLAINT: Headache, confusion PLAN: Disposition: Admitted Condition: Good MEDICAL DECISION MAKING: Patient presented emergency [facility] with an acute change in mental status and h eadache. A stroke alert was initiated after the patient was seen and examined. She underwent CT angiography as noted below. There was no obvious acute findings to suggest bleed or CVA. She did have an incidental aneurysm. The patient's lab work was unremarkable except for a leukocytosis. She had no significant elevation of her ESR. Physical examination on the outside did not reveal any obvious findings. She was nonfocal although was having periods of confusion. She did require IV Dilaudid and Zofran for symptom control. She was started on Rocephin, vancomycin, Bactrim and Decadron. She underwent lumbar puncture. She had a normal glucose but elevated protein. The patient's cell c ount revealed a few red blood cells but no evidence of white blood cells. The patient was somewhat of a challenging volar puncture as she would not hold still for the procedure and I had to redirect the needle 2 times and had additional lidocaine once. The patient did develop some mild nausea. She was given a dose of IV Tylenol and Reglan. Her blood pressure kept spiking and she was treated with 5 mg of IV hydralazine. Record review indicates the patient does not typically have significant hypertension. This may be playing into the headache. The patient is in need of further management in the hospital. I did discuss the case with Syeda Mendoza PA-C who is working with Dr. Jabier Diehl. The patient will be evaluated by the [facility] and admitted for further management. Triage Nursing notes reviewed and agree them. Additional history obtained from patient's neighbor and granddaughter. Prior medical records reviewed Vital Signs: reviewed and remarkable for no significant abnormalities Differential diagnosis: CVA, TIA, migraine headache, meningitis, sinusitis, CO exposure, ICH, SAH, infection, tumor, headache, sinus thrombosis, arterial dissection, as well as other pathologies. Diagnostics interpreted by me: ECG: Twelve-lead ECG reveals a normal sinus rhythm at 79 bpm. There is left axis deviation and low voltage QRS. Anterior and inferior Q waves. No ST elevation. Cardiac Monitoring: .Cardiac monitoring ordered by me: The patient was placed on continuous cardiac monitoring and observed. It revealed a normal sinus rhythm at 84 beats per minute without ectopy or evidence of dysrhythmia. Imaging studies: Chest x-ray. Findings: A chest x-ray was performed and revealed no pneumothorax, effusion, infiltrate, pulmonary edema, free air under the diaphragm, or wide mediastinum. Impression: No acute disease. CT angiogram of the head and neck was performed. There was no acute process noted. No bleeding or signs of acute stroke. An incidental 3 mm aneurysm was noted. I refer you to the EMR for further details. [facility] HPI: The patient is a 74 year old female who presents to the Emergency Room with complaints of bifrontal headache. This started in the middle of the night and is associated with confusion and some altered mental status per the patient's neighbor. The patient also notes the following associated symptoms, left shoulder pain which has been going on for 2 weeks, and new neck pain. The patient has found no relieving factors. Current pain is rated as 10/10. Patient has no history of migraines. She denies trauma. Pt denies LOC, fevers, chills, diaphoresis, visual changes, chest pain, breathing difficulties, nausea, vomiting, abdominal pain, lower back pain, melena, hematochezia, urinary symptoms, numbness, weakness, lymphadenopathy, rash, or other complaints. ROS: See above HPI for pertinent positives & negatives. A total of 10 systems reviewed and were otherwise negative. PAST MEDICAL HISTORY:See Below, PMR, kidney stones, small bowel obstruction, GERD PAST SURGICAL HISTORY:See Below, FAMILY HISTORY:See Below SOCIAL HISTORY:See Below, lives alone HOME MEDICATIONS:See Below ALLERGIES:See Below VITALS:See Below PHYSICAL EXAMINATION: GENERAL: Awake, sleepy and uncomfortable-appearing, in distress HENT: Normocephalic, atraumatic. Oropharynx unremarkable. EYES: Normal conjunctiva. Sclera non-icteric. PERRLA. EOMI. Cornea are clear. NECK: Inspection normal. Non-tender. Supple. No nuchal rigidity. FROM. No masses. RESPIRATORY: Clear to auscultation. No wheezes. No rales. Normal respiratory effort. CARDIAC: Normal rate. Normal rhythm. No murmurs. No rubs. Extremities warm and well perfused. Pulses equal. No JVD. GI: Soft, non-distended. No tenderness to palpation. No rebound or guarding. No masses. RECTAL: Deferred. MUSCULOSKELETAL: Atraumatic. Chest examination reveals no tenderness. The back is symmetrical on inspection without obvious abnormality. There is no CVA tenderness to palpation. No joint edema. LOWER EXTREMITIES: Calves are equal size bilaterally and non-tender. No edema. No discoloration. NEURO: Mildly confused but otherwise normal sensorium. No sensory or motor deficits noted. SKIN: No rash or jaundice noted. ED COURSE: LUMBAR PUNCTURE: Indication: Headache and leukocytosis. Verbal consent was obtained after the risks and benefits were explained, including but not limited to headache, bleeding, scarring, infection, pain, and bone/joint/nerve damage. At this time, the risks of the procedure are less than the risks of NOT performing the procedure. A time out was taken and the correct patient and site identified. The patient was placed in the left lateral decubitus position and the back was prepped and draped in the standard fashion with betadine. The L3 intervertebral space was identified, anesthetized with lidocaine x2, and the spinal needle was inserted through the skin with the bevel parallel to the dural fibers. I did have to redirect the needle twice as the patient was having difficulty holding still secondary to shoulder pain and headache. The needle was then carefully advanced into the sac and 4 tubes of clear CSF was obtained. The stylet was replaced and the needle was removed. A bandaid was placed and the patient was placed in the supine position. The patient tolerated the proced ure well and there were no complications. Yousuf Paniagua MD Past Med/Surg History Medical History (Updated 02/26/20 @ 15:43 by Yousuf Paniagua MD) Cervical pain Cervical radiculopathy Clostridium difficile infection Dyslipidemia GERD (gastroesophageal reflux disease) Herpes zoster Kidney stones Left knee DJD Missed Osteoarthritis Parastomal hernia with obstruction and without gangrene S/p repair Polymyalgia rheumatica SBO (small bowel obstruction) Ulcerative colitis Surgical History H/O ileostomy H/O oral surgery H/O ventral hernia repair History of colectomy S/P appendectomy S/P colonoscopy S/P dilation and curettage S/P repair of ventral hernia parastomal with placement of biologic mesh S/P tonsillectomy and adenoidectomy S/P tubal ligation Family History Grandmother (Paternal) Breast cancer Grandmother (Maternal) Colorectal cancer Father Rheumatic heart disease Mother Thyroid cancer Social History (Updated 02/19/20 @ 15:01 by Selam Bella RN) Smoking Status: Former smoker Second Hand Exposure: No; Hx Alcohol Use: Yes Alcohol type: wine and hard liquor Hx Substance Use: No Preferred Language: Kiswahili Communication Ability: Effective [place] Tower [employer] Required: No Beliefs That Will Affect Care: None marital status: / Current Living Situation: Alone current occupational status: retired Feels Safe at Home: Yes Safety Concerns: Feels Safe At This Time Assistive Devices: Glasses Allergies Allergies Allergy/AdvReac Type Severity Reaction Status Date / Time Penicillins Allergy Severe Hives Verified 02/26/20 14:39 Cipro Allergy Intermediate SEVERE RASH Verified 01/24/14 12:55 ciprofloxacin Allergy Intermediate SEVERE RASH Verified 02/26/20 14:39 metronidazole [From Flagyl] Allergy Intermediate rash Verified 02/26/20 15:43 adhesive Allergy Mild Rash Verified 02/26/20 14:39 ondansetron [From Zofran] Allergy Mild Rash Verified 02/26/20 14:39 codeine Allergy Unknown n/v Verified 02/26/20 14:39 pinpoint pupils infliximab Allergy Unknown Unknown Verified 02/26/20 14:39 Quinolones Allergy Unknown Unknown Verified 02/26/20 14:39 tramadol Allergy Unknown bradycardia Verified 02/26/20 14:39 vancomycin Allergy Unknown Maris Verified 02/26/20 14:39 syndrome NONSTEROIDAL Allergy Unknown NAPROXEN Uncoded 02/26/20 14:39 Home Meds Home Medications Medication Instructions Recorded Confirmed aspirin 81 mg tablet,delayed 81 mg PO DAILY 04/19/19 02/26/20 release omeprazole magnesium 20 mg 20 mg PO QAM 04/19/19 02/26/20 tablet,delayed release potassium chloride 10 mEq 10 meq PO 3XWK PRN 04/19/19 02/26/20 capsule,extended release furosemide [Lasix] 20 mg PO 3XWK 05/08/19 02/26/20 prednisone 5 mg PO DAILY 05/08/19 02/26/20 rosuvastatin 5 mg PO DAILY 05/08/19 02/26/20 Turmeric Curcumin 1,000 mg PO BID 02/26/20 acetaminophen [Tylenol] 650 mg PO BID 02/26/20 02/26/20 ascorbic acid (vitamin C) [Vitamin 1 g PO DAILY 02/26/20 02/26/20 C] baclofen 10 mg PO BID PRN 02/26/20 02/26/20 clobetasol [Temovate] 1 applic TOPICAL BID 02/26/20 02/26/20 mupirocin [Bactroban] 1 applic TOPICAL BID 02/26/20 02/26/20 vitamin B complex 1 tab PO DAILY 02/26/20 02/26/20 Results & Data (ED) Vital Signs Vital Signs - 24 hr 02/26/20 12:19 02/26/20 12:39 02/26/20 12:41 Temperature 37.3 C Temperature Source Oral Pulse Rate 84 78 86 Pulse Rate from SpO2 Sensor 78 85 Respiratory Rate 22 19 24 Respiratory Effort / Characteristics Non-Labored Respiratory Depth Normal Respiratory Pattern Regular Blood Pressure 195/129 H 195/129 H Blood Pressure Mean 151 149 Pulse Oximetry 95 98 99 Oxygen Delivery Method Room Air Sepsis Recent Fever Within 48 Hours Yes Sepsis New/Unexplained Change in Mental Status Yes Sepsis Action Taken by Nursing Previously Notified 02/26/20 12:45 02/26/20 12:46 02/26/20 13:00 Temperature Temperature Source Pulse Rate 84 85 87 Pulse Rate from SpO2 Sensor 84 86 Respiratory Rate 22 23 18 Respiratory Effort / Characteristics Respiratory Depth Respiratory Pattern Blood Pressure 195/129 H Blood Pressure Mean 149 Pulse Oximetry 98 98 Oxygen Delivery Method Sepsis Recent Fever Within 48 Hours Sepsis New/Unexplained Change in Mental Status Sepsis Action Taken by Nursing 02/26/20 13:26 02/26/20 13:27 02/26/20 13:30 Temperature Temperature Source Pulse Rate 96 H 90 91 H Pulse Rate from SpO2 Sensor 97 H 91 H 91 H Respiratory Rate 29 H 22 25 H Respiratory Effort / Characteristics Respiratory Depth Respiratory Pattern Blood Pressure 157/79 H Blood Pressure Mean 116 Pulse Oximetry 97 96 96 Oxygen Delivery Method Sepsis Recent Fever Within 48 Hours Sepsis New/Unexplained Change in Mental Status Sepsis Action Taken by Nursing 02/26/20 13:45 02/26/20 14:00 02/26/20 14:07 Temperature Temperature Source Pulse Rate 85 81 73 Pulse Rate from SpO2 Sensor 81 73 Respiratory Rate 22 23 16 Respiratory Effort / Characteristics Respiratory Depth Respiratory Pattern Blood Pressure 190/94 H Blood Pressure Mean 105 Pulse Oximetry 100 100 Oxygen Delivery Method Sepsis Recent Fever Within 48 Hours Sepsis New/Unexplained Change in Mental Status Sepsis Action Taken by Nursing 02/26/20 14:15 02/26/20 14:30 02/26/20 14:45 Temperature Temperature Source Pulse Rate 81 73 74 Pulse Rate from SpO2 Sensor 73 74 Respiratory Rate 26 H 23 25 H Respiratory Effort / Characteristics Respiratory Depth Respiratory Pattern Blood Pressure 176/82 H Blood Pressure Mean 110 Pulse Oximetry 100 100 Oxygen Delivery Method Sepsis Recent Fever Within 48 Hours Sepsis New/Unexplained Change in Mental Status Sepsis Action Taken by Nursing 02/26/20 15:00 02/26/20 15:09 02/26/20 15:30 Temperature Temperature Source Pulse Rate 83 94 H 84 Pulse Rate from SpO2 Sensor 83 Respiratory Rate 19 21 21 Respiratory Effort / Characteristics Respiratory Depth Respiratory Pattern Blood Pressure 174/95 H 132/98 Blood Pressure Mean 119 109 Pulse Oximetry 99 Oxygen Delivery Method Sepsis Recent Fever Within 48 Hours Sepsis New/Unexplained Change in Mental Status Sepsis Action Taken by Nursing 02/26/20 16:02 Temperature Temperature Source Pulse Rate 78 Pulse Rate from SpO2 Sensor 76 Respiratory Rate 18 Respiratory Effort / Characteristics Respiratory Depth Respiratory Pattern Blood Pressure Blood Pressure Mean Pulse Oximetry 97 Oxygen Delivery Method Room Air Sepsis Recent Fever Within 48 Hours Sepsis New/Unexplained Change in Mental Status Sepsis Action Taken by Nursing Laboratory Data Result diagrams: 02/26/20 12:21 02/26/20 12:21 Lab Results 02/26/20 02/26/20 02/26/20 Range/Units 12:21 12:21 12:21 WBC 16.20 H (4.8-10.8) K/uL RBC 4.31 (4.2-5.4) M/uL Hgb 14.2 (12.0-16.0) g/dL Hct 42.2 (37-47) % MCV 97.9 (80-100) fL MCH 32.9 (25-34) pg MCHC 33.6 (32-36) g/dL RDW Std Deviation 48.8 H (36.4-46.3) fL RDW Coeff of Deandre 13.5 (11.5-14.5) % Plt Count 303 (130-400) K/uL MPV 10.4 (7.4-10.4) fL Immature Gran % (Auto) 0.3 % Neut % (Auto) 82.2 % Lymph % (Auto) 7.6 % [place] % (Auto) 9.3 % Eos % (Auto) 0.4 % Baso % (Auto) 0.2 % Neut # (Auto) 13.32 H (1.4-6.5) K/uL Lymph # (Auto) 1.23 (1.2-3.4) K/uL [place] # (Auto) 1.50 H (0.11-0.59) K/uL Eos # (Auto) 0.06 (0-0.5) K/uL Baso # (Auto) 0.04 (0-0.2) K/uL Immature Gran # (Auto) 0.05 H (0.00-0.02) K/uL ESR (0-21) mm/hr PT Cancelled INR Cancelled APTT Cancelled PTT Ratio Cancelled Sodium 141 (136-145) mmol/L Potassium 3.5 (3.5-5.1) mmol/L Chloride 106 (98-107) mmol/L Carbon Dioxide 27 (21-32) mmol/L Anion Gap 8.0 (3-11) BUN 24 H (7-18) mg/dl Creatinine 0.88 (0.6-1.2) mg/dl Est Cr Clr Drug Dosing 48.0 ml/min Est GFR ( Amer) 74.0 Est GFR (Non-Af Amer) 63.8 BUN/Creatinine Ratio 27.3 H (10-20) Glucose 97 (70-99) mg/dl POC Glucose (70-99) mg/dl Calcium 9.6 (8.5-10.1) mg/dl Magnesium 1.9 (1.8-2.4) mg/dl Total Bilirubin 0.7 (0.2-1) mg/dl AST 17 (15-37) U/L ALT 31 (12-78) U/L Alkaline Phosphatase 59 (45-117) U/L Troponin I < 0.015 (0-0.045) ng/ml Total Protein 7.5 (6.4-8.2) gm/dl Albumin 3.7 (3.4-5.0) gm/dl Globulin 3.8 (2.5-4.0) gm/dl Albumin/Globulin Ratio 1.0 (0.9-2) Urine Color Urine Appearance (Clear) Urine pH (4.5-7.5) Ur Specific [place] (1.000-1.030) Urine Protein (Negative) Urine Glucose (UA) (Negative) Urine Ketones (Negative) Urine Blood (Negative) Urine Nitrite (Negative) Urine Bilirubin (Negative) Urine Urobilinogen (Negative) Ur Leukocyte Esterase (Negative) Urine WBC (Auto) (0-5) /hpf Urine RBC (Auto) (0-4) /hpf U Hyaline Cast (Auto) (0-5) /lpf U Epithel Cells (Auto) (0-5) /lpf Urine Bacteria (Auto) (Negative) CSF Appearance CSF Color Xanthrochromic CSF WBC (0-5) /uL CSF RBC (0-) /uL CSF Cell Count Tube # CSF Mononuclear WBCs CSF Mononuclear WBCs % CSF Polynuclear WBCs CSF Polynuclear WBCs % CSF Other Cells CSF Chemistry Tube # CSF Glucose (40-70) mg/dl CSF Total Protein (15-45) mg/dl Blood Type Blood Type Recheck Antibody Screen 02/26/20 02/26/20 02/26/20 Range/Units 13:16 13:26 13:39 WBC (4.8-10.8) K/uL RBC (4.2-5.4) M/uL Hgb (12.0-16.0) g/dL Hct (37-47) % MCV (80-100) fL MCH (25-34) pg MCHC (32-36) g/dL RDW Std Deviation (36.4-46.3) fL RDW Coeff of Deandre (11.5-14.5) % Plt Count (130-400) K/uL MPV (7.4-10.4) fL Immature Gran % (Auto) % Neut % (Auto) % Lymph % (Auto) % [place] % (Auto) % Eos % (Auto) % Baso % (Auto) % Neut # (Auto) (1.4-6.5) K/uL Lymph # (Auto) (1.2-3.4) K/uL [place] # (Auto) (0.11-0.59) K/uL Eos # (Auto) (0-0.5) K/uL Baso # (Auto) (0-0.2) K/uL Immature Gran # (Auto) (0.00-0.02) K/uL ESR 18 (0-21) mm/hr PT INR APTT PTT Ratio Sodium (136-145) mmol/L Potassium (3.5-5.1) mmol/L Chloride (98-107) mmol/L Carbon Dioxide (21-32) mmol/L Anion Gap (3-11) BUN (7-18) mg/dl Creatinine (0.6-1.2) mg/dl Est Cr Clr Drug Dosing ml/min Est GFR ( Amer) Est GFR (Non-Af Amer) BUN/Creatinine Ratio (10-20) Glucose (70-99) mg/dl POC Glucose 84 (70-99) mg/dl Calcium (8.5-10.1) mg/dl Magnesium (1.8-2.4) mg/dl Total Bilirubin (0.2-1) mg/dl AST (15-37) U/L ALT (12-78) U/L Alkaline Phosphatase (45-117) U/L Troponin I (0-0.045) ng/ml Total Protein (6.4-8.2) gm/dl Albumin (3.4-5.0) gm/dl Globulin (2.5-4.0) gm/dl Albumin/Globulin Ratio (0.9-2) Urine Color Urine Appearance (Clear) Urine pH (4.5-7.5) Ur Specific [place] (1.000-1.030) Urine Protein (Negative) Urine Glucose (UA) (Negative) Urine Ketones (Negative) Urine Blood (Negative) Urine Nitrite (Negative) Urine Bilirubin (Negative) Urine Urobilinogen (Negative) Ur Leukocyte Esterase (Negative) Urine WBC (Auto) (0-5) /hpf Urine RBC (Auto) (0-4) /hpf U Hyaline Cast (Auto) (0-5) /lpf U Epithel Cells (Auto) (0-5) /lpf Urine Bacteria (Auto) (Negative) CSF Appearance CSF Color Xanthrochromic CSF WBC (0-5) /uL CSF RBC (0-) /uL CSF Cell Count Tube # CSF Mononuclear WBCs CSF Mononuclear WBCs % CSF Polynuclear WBCs CSF Polynuclear WBCs % CSF Other Cells CSF Chemistry Tube # CSF Glucose (40-70) mg/dl CSF Total Protein (15-45) mg/dl Blood Type Blood Type Recheck A Negative Antibody Screen 02/26/20 02/26/20 02/26/20 Range/Units 13:55 13:57 14:50 WBC (4.8-10.8) K/uL RBC (4.2-5.4) M/uL Hgb (12.0-16.0) g/dL Hct (37-47) % MCV (80-100) fL MCH (25-34) pg MCHC (32-36) g/dL RDW Std Deviation (36.4-46.3) fL RDW Coeff of Deandre (11.5-14.5) % Plt Count (130-400) K/uL MPV (7.4-10.4) fL Immature Gran % (Auto) % Neut % (Auto) % Lymph % (Auto) % [place] % (Auto) % Eos % (Auto) % Baso % (Auto) % Neut # (Auto) (1.4-6.5) K/uL Lymph # (Auto) (1.2-3.4) K/uL [place] # (Auto) (0.11-0.59) K/uL Eos # (Auto) (0-0.5) K/uL Baso # (Auto) (0-0.2) K/uL Immature Gran # (Auto) (0.00-0.02) K/uL ESR (0-21) mm/hr PT 10.7 INR 1.0 APTT < 20.0 L PTT Ratio 0.7 Sodium (136-145) mmol/L Potassium (3.5-5.1) mmol/L Chloride (98-107) mmol/L Carbon Dioxide (21-32) mmol/L Anion Gap (3-11) BUN (7-18) mg/dl Creatinine (0.6-1.2) mg/dl Est Cr Clr Drug Dosing ml/min Est GFR ( Amer) Est GFR (Non-Af Amer) BUN/Creatinine Ratio (10-20) Glucose (70-99) mg/dl POC Glucose (70-99) mg/dl Calcium (8.5-10.1) mg/dl Magnesium (1.8-2.4) mg/dl Total Bilirubin (0.2-1) mg/dl AST (15-37) U/L ALT (12-78) U/L Alkaline Phosphatase (45-117) U/L Troponin I (0-0.045) ng/ml Total Protein (6.4-8.2) gm/dl Albumin (3.4-5.0) gm/dl Globulin (2.5-4.0) gm/dl Albumin/Globulin Ratio (0.9-2) Urine Color Urine Appearance (Clear) Urine pH (4.5-7.5) Ur Specific [place] (1.000-1.030) Urine Protein (Negative) Urine Glucose (UA) (Negative) Urine Ketones (Negative) Urine Blood (Negative) Urine Nitrite (Negative) Urine Bilirubin (Negative) Urine Urobilinogen (Negative) Ur Leukocyte Esterase (Negative) Urine WBC (Auto) (0-5) /hpf Urine RBC (Auto) (0-4) /hpf U Hyaline Cast (Auto) (0-5) /lpf U Epithel Cells (Auto) (0-5) /lpf Urine Bacteria (Auto) (Negative) CSF Appearance Clear CSF Color Colorless Xanthrochromic No xanthochromia CSF WBC 0 (0-5) /uL CSF RBC 54 (0-) /uL CSF Cell Count Tube # 3 CSF Mononuclear WBCs CSF Mononuclear WBCs % CSF Polynuclear WBCs CSF Polynuclear WBCs % CSF Other Cells CSF Chemistry Tube # 1 CSF Glucose 54 (40-70) mg/dl CSF Total Protein 57.7 H (15-45) mg/dl Blood Type A Negative Blood Type Recheck Antibody Screen NEGATIVE 02/26/20 02/26/20 Range/Units 15:08 15:20 WBC (4.8-10.8) K/uL RBC (4.2-5.4) M/uL Hgb (12.0-16.0) g/dL Hct (37-47) % MCV (80-100) fL MCH (25-34) pg MCHC (32-36) g/dL RDW Std Deviation (36.4-46.3) fL RDW Coeff of Deandre (11.5-14.5) % Plt Count (130-400) K/uL MPV (7.4-10.4) fL Immature Gran % (Auto) % Neut % (Auto) % Lymph % (Auto) % [place] % (Auto) % Eos % (Auto) % Baso % (Auto) % Neut # (Auto) (1.4-6.5) K/uL Lymph # (Auto) (1.2-3.4) K/uL [place] # (Auto) (0.11-0.59) K/uL Eos # (Auto) (0-0.5) K/uL Baso # (Auto) (0-0.2) K/uL Immature Gran # (Auto) (0.00-0.02) K/uL ESR (0-21) mm/hr PT INR APTT PTT Ratio Sodium (136-145) mmol/L Potassium (3.5-5.1) mmol/L Chloride (98-107) mmol/L Carbon Dioxide (21-32) mmol/L Anion Gap (3-11) BUN (7-18) mg/dl Creatinine (0.6-1.2) mg/dl Est Cr Clr Drug Dosing ml/min Est GFR ( Amer) Est GFR (Non-Af Amer) BUN/Creatinine Ratio (10-20) Glucose (70-99) mg/dl POC Glucose (70-99) mg/dl Calcium (8.5-10.1) mg/dl Magnesium (1.8-2.4) mg/dl Total Bilirubin (0.2-1) mg/dl AST (15-37) U/L ALT (12-78) U/L Alkaline Phosphatase (45-117) U/L Troponin I (0-0.045) ng/ml Total Protein (6.4-8.2) gm/dl Albumin (3.4-5.0) gm/dl Globulin (2.5-4.0) gm/dl Albumin/Globulin Ratio (0.9-2) Urine Color Yellow Urine Appearance Clear (Clear) Urine pH 7.5 (4.5-7.5) Ur Specific [place] > 1.045 H (1.000-1.030) Urine Protein Negative (Negative) Urine Glucose (UA) Negative (Negative) Urine Ketones Negative (Negative) Urine Blood Trace H (Negative) Urine Nitrite Negative (Negative) Urine Bilirubin Negative (Negative) Urine Urobilinogen Negative (Negative) Ur Leukocyte Esterase Negative (Negative) Urine WBC (Auto) 1-5 (0-5) /hpf Urine RBC (Auto) 0-4 (0-4) /hpf U Hyaline Cast (Auto) 1-5 (0-5) /lpf U Epithel Cells (Auto) 20-30 H (0-5) /lpf Urine Bacteria (Auto) Negative (Negative) CSF Appearance Cancelled CSF Color Cancelled Xanthrochromic Cancelled CSF WBC Cancelled (0-5) /uL CSF RBC Cancelled (0-) /uL CSF Cell Count Tube # Cancelled CSF Mononuclear WBCs Cancelled CSF Mononuclear WBCs % Cancelled CSF Polynuclear WBCs Cancelled CSF Polynuclear WBCs % Cancelled CSF Other Cells Cancelled CSF Chemistry Tube # CSF Glucose (40-70) mg/dl CSF Total Protein (15-45) mg/dl Blood Type Blood Type Recheck Antibody Screen Administered Medications Hydromorphone HCl (Hydromorphone Inj 0.5 Mg/0.5 Ml Syr) 0.5 mg IV Q15M PRN PRN Reason: Pain Stop: 03/11/20 13:10 Last Admin: 02/26/20 14:47 Dose: 0.5 mg Documented by: [id number] Admin: 02/26/20 13:46 Dose: 0.5 mg Documented by: [id number] Discontinued Medications Dexamethasone (Dexamethasone Sod Inj 10 Mg/Ml Vial) 10 mg IV NOW ONE Stop: 02/26/20 14:08 Last Admin: 02/26/20 14:37 Dose: 10 mg Documented by: [id number] Hydralazine HCl (Hydralazine Hcl 20 Mg/Ml Vial) 5 mg IV NOW ONE Stop: 02/26/20 16:16 Last Admin: 02/26/20 16:39 Dose: 5 mg Documented by: [id number] Ceftriaxone Sodium (Rocephin) 2,000 mg in 70 mls @ 140 mls/hr IV NOW STA Stop: 02/26/20 14:36 Last Infusion: 02/26/20 15:28 Dose: 0 mls/hr Documented by: [id number] Admin: 02/26/20 14:37 Dose: 140 mls/hr Documented by: [id number] Trimethoprim/Sulfamethoxazole (340 mg/ Dextrose) 521.25 mls @ 333 mls/hr IV NOW ONE Stop: 02/26/20 16:03 Last Admin: 02/26/20 15:35 Dose: 333 mls/hr Documented by: [id number] Acyclovir Sodium 680 mg/ (Dextrose) 263.6 mls @ 250 mls/hr IV NOW ONE Stop: 02/26/20 16:18 Last Admin: 02/26/20 15:55 Dose: 250 mls/hr Documented by: [id number] Acetaminophen (Ofirmev) 1,000 mg in 100 mls @ 400 mls/hr IV NOW STA Stop: 02/26/20 16:29 Last Admin: 02/26/20 16:39 Dose: 400 mls/hr Documented by: [id number] Ioversol (Optiray 320 125ml) 119 ml IV ONCE ONE Stop: 02/26/20 13:25 Last Admin: 02/26/20 13:25 Dose: 119 ml Documented by: [id number] Lidocaine HCl (Lidocaine Hcl 1% 20 Ml Vial) Confirm Administered Dose 20 ml .ROUTE .STK-MED ONE Stop: 02/26/20 14:43 Last Admin: 02/26/20 14:48 Dose: 20 ml Documented by: [id number] Metoclopramide HCl (Metoclopramide Hcl Inj 5 Mg/Ml 2 Ml Vial) 5 mg IV ONE ONE Stop: 02/26/20 16:16 Last Admin: 02/26/20 16:39 Dose: 5 mg Documented by: [id number] Discharge Plan Visit Data Chief Complaint: Confusion Stated Complaint: ams/neck & shoulder pain ED Provider: Yousuf Paniagua Discharge Problem: AMS (altered mental status), Headache, Leukocytosis Forms Stand Alone Forms: [facility] Prescriptions Prescriptions: No Action aspirin [Adult Low Dose Aspirin] 81 mg tablet,delayed release (DR/EC) 81 mg PO DAILY RF: 0 potassium chloride 10 mEq capsule, extended release 10 meq PO 3XWK PRN (Reason: With Furosemide) RF: 0 Prilosec OTC 20 mg tablet,delayed release (DR/EC) 20 mg PO QAM RF: 0 furosemide [Lasix] 20 mg Tablet 20 mg PO 3XWK RF: 0 prednisone 5 mg Tablet 5 mg PO DAILY RF: 0 rosuvastatin 5 mg Tablet 5 mg PO DAILY RF: 0 ascorbic acid (vitamin C) [Vitamin C] 1,000 mg Tablet 1 g PO DAILY RF: 0 acetaminophen [Tylenol] 325 mg Tablet 650 mg PO BID RF: 0 clobetasol [Temovate] 0.05 % Cream 1 applic TOPICAL BID RF: 0 baclofen 10 mg tablet 10 mg PO BID PRN (Reason: muscle spasms) RF: 0 vitamin B complex Tablet 1 tab PO DAILY RF: 0 mupirocin [Bactroban] 2 % Ointment 1 applic TOPICAL BID RF: 0 Turmeric Curcumin 1,000 mg PO BID RF: 0
[2020-02-26 16:05] LABS: CSF Chemistry Tube # 1
[2020-02-26] MEDS ORDERED: METOCLOPRAMIDE HCL INJ 5 MG/ML 2 ML VIAL IV ONE (16:15)
[2020-02-26] MEDS ORDERED: hydrALAZINE HCL 20 MG/ML VIAL IV ONE (16:15)
[2020-02-26] MEDS ORDERED: ACETAMINOPHEN 1,000 MG/100 ML VIAL IV STA (16:15)
[2020-02-26] MEDS ORDERED: LORazepam 1 MG/2 ML VIAL IV STA (16:52)
--- NOTE | 2020-02-26 17:04 | History & Physical Report ---
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 Patient's granddaughter is at bedside. She has significant past medical history of ulcerative colitis status post subtotal colectomy with end ileostomy, PMR on chronic prednisone therapy, osteoporosis, chronic pain secondary to polyarthropathy, history of DVT, and history of zoster. Ddx: Concern for Ischemic CVA, hypertensive emergency, encephalitis, meningitis, Sepsis, Bacteremia, tick borne illness, drug toxicity, malignancy admit to PCU Obtain Stat MRI, pre-treat with IV ativan r/o CVA continue IV antibiotics IV rocephin, Doxy and IV acyclovir until infectious etiology, encephalitis ruled out await CSF and blood cultures obtain tick born illness screen, CK, lactic acid, procalcitonin, TSH IVF 80cc/hr Keep NPO until encephalopathy improves, hold PO meds Labetolol 10mg IV for SBP > 180 or diastolic > 110 q8prn IV Dilaudid 0.5mg q4h prn for BENJAMIN or IV APAP for mild pain give 1g mag sulfate - may help with tx of BENJAMIN consult neurology - appreciate their input (5) Ulcerative colitis: s/p ileostomy nursing care (6) Polymyalgia rheumatica: on chronic 5mg of prednisone received 10mg IV dexamethasone in ED Hold oral prednisone for now, re eval mental status in a.m. if able to resume (7) DVT prophylaxis: SQ Lovenox Disposition: admit to PCU Follow up: PCP Dr. Ruiz upon discharge Pt was seen and examined in collaboration with Dr. Diehl, please see addendum History of Present Illness Chief Complaint: Headache x12 hours and confusion. 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 Patient's granddaughter is at bedside. She has significant past medical history of ulcerative colitis status post subtotal colectomy with end ileostomy, PMR on chronic prednisone therapy, osteoporosis, chronic pain second jocelin to polyarthropathy, history of DVT, and history of zoster. History is limited from patient secondary to pain and confusion. She lives at home by herself and granddaughter at bedside states that, "she is totally off and she is much more confused." "She has never been like this before." Granddaughter states she tried to reach patient earlier today and was unsuccessful which was unusual for her. She spoke with her brother who was also unable to reach her. Finally when she did reach her patient did not know who she was talking to and appeared confused. She complains of severe frontal headache and granddaughter feels that she also complained of change in vision and change in hearing. Her last known time well was 3:30 PM yesterday. Family at bedside denied known tick bites or narcotic use. Of significance approximately 1 week ago she did have for trigger point injections in the left rhomboid by [facility] pain clinic. Pt states she has a ileostomy and is still making stool. ROS unobtainable. Granddaughter denies history of diabetes or hypertension. Hx obtained mostly from granddaughter and outpt records with [employer]. In ED patient was significantly hypertensive in the criteria for hypertensive urgency. Stroke alert was initiated. 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 Lab work notable for leukocytosis 16k, H&H stable at 14.2 and 42.2, BUN 24, creatinine 1.88, glucose 97, mag 1.9, urinalysis negative. Because of leukocytosis and complaint of headache ER provider concern for possible meningitis. Spinal tap was performed which was generally unrevealing except mild elevated protein. She was covered with broad-spectrum IV antibiotics including ceftriaxone, IV acyclovir and Bactrim. She also received 10 mg IV dexamethasone. She remained significantly hypertensive so we ordered 5 mg of IV hydralazine. Allergies Allergy/AdvReac Type Severity Reaction Status Date / Time Penicillins Allergy Severe Hives Verified 02/26/20 14:39 Cipro Allergy Intermediate SEVERE RASH Verified 01/24/14 12:55 ciprofloxacin Allergy Intermediate SEVERE RASH Verified 02/26/20 14:39 metronidazole [From Flagyl] Allergy Intermediate rash Verified 02/26/20 15:43 adhesive Allergy Mild Rash Verified 02/26/20 14:39 ondansetron [From Zofran] Allergy Mild Rash Verified 02/26/20 14:39 codeine Allergy Unknown n/v Verified 02/26/20 14:39 pinpoint pupils infliximab Allergy Unknown Unknown Verified 02/26/20 14:39 Quinolones Allergy Unknown Unknown Verified 02/26/20 14:39 tramadol Allergy Unknown bradycardia Verified 02/26/20 14:39 vancomycin Allergy Unknown Maris Verified 02/26/20 14:39 syndrome NONSTEROIDAL Allergy Unknown NAPROXEN Uncoded 02/26/20 14:39 Home Medications Home Medications Medication Instructions Recorded Confirmed Type aspirin 81 mg tablet,delayed 81 mg PO DAILY 04/19/19 02/26/20 History release omeprazole magnesium 20 mg 20 mg PO QAM 04/19/19 02/26/20 History tablet,delayed release potassium chloride 10 mEq 10 meq PO 3XWK PRN 04/19/19 02/26/20 History capsule,extended release furosemide [Lasix] 20 mg PO 3XWK 05/08/19 02/26/20 History prednisone 5 mg PO DAILY 05/08/19 02/26/20 History rosuvastatin 5 mg PO DAILY 05/08/19 02/26/20 History Turmeric Curcumin 1,000 mg PO BID 02/26/20 History acetaminophen [Tylenol] 650 mg PO BID 02/26/20 02/26/20 History ascorbic acid (vitamin C) [Vitamin 1 g PO DAILY 02/26/20 02/26/20 History C] baclofen 10 mg PO BID PRN 02/26/20 02/26/20 History clobetasol [Temovate] 1 applic TOPICAL BID 02/26/20 02/26/20 History mupirocin [Bactroban] 1 applic TOPICAL BID 02/26/20 02/26/20 History vitamin B complex 1 tab PO DAILY 02/26/20 02/26/20 History Past Med/Surg History Medical History (Updated 02/26/20 @ 17:11 by Syeda Mendoza PA-C) Cervical pain Cervical radiculopathy Clostridium difficile infection Dyslipidemia GERD (gastroesophageal reflux disease) Herpes zoster Kidney stones Left knee DJD Missed Osteoarthritis Parastomal hernia with obstruction and without gangrene S/p repair Polymyalgia rheumatica SBO (small bowel obstruction) Ulcerative colitis Surgical History H/O ileostomy H/O oral surgery H/O ventral hernia repair History of colectomy S/P appendectomy S/P colonoscopy S/P dilation and curettage S/P repair of ventral hernia parastomal with placement of biologic mesh S/P tonsillectomy and adenoidectomy S/P tubal ligation Family History Grandmother (Paternal) Breast cancer Grandmother (Maternal) Colorectal cancer Father Rheumatic heart disease Mother Thyroid cancer Social History (Updated 02/26/20 @ 17:07 by Syeda Mendoza PA-C) Smoking Status: Former smoker Years Smoked: 25; Cigarettes Per Day: 0.5; Second Hand Exposure: No; Hx Alcohol Use: Yes Alcohol type: wine and hard liquor Alcohol Intake Frequency Comment: Per epic: "Social" Hx Substance Use: No Preferred Language: Khmer Communication Ability: Effective Internal Audit Director Required: No Beliefs That Will Affect Care: None marital status: / Current Living Situation: Alone current occupational status: retired Feels Safe at Home: Yes Safety Concerns: Feels Safe At This Time Assistive Devices: Glasses Review of Systems Review of Systems: Unobtainable due to cognitive status Physical Exam Physical Exam: Please refer to Dr. Diehl addendum for physical exam findings Results & Data Results & Data ([facility]) Vital Signs (Past 12 Hours) Vital Signs Temp Pulse Resp BP Pulse Ox 02/26/20 16:02 78 18 97 02/26/20 15:30 84 21 132/98 02/26/20 15:09 94 H 21 174/95 H 02/26/20 15:00 83 19 99 02/26/20 14:45 74 25 H 100 02/26/20 14:30 73 23 176/82 H 100 02/26/20 14:15 81 26 H 02/26/20 14:07 73 16 190/94 H 100 02/26/20 14:00 81 23 100 02/26/20 13:45 85 22 02/26/20 13:30 91 H 25 H 96 02/26/20 13:27 90 22 157/79 H 96 02/26/20 13:26 96 H 29 H 97 02/26/20 13:00 87 18 02/26/20 12:46 85 23 195/129 H 98 02/26/20 12:45 84 22 98 02/26/20 12:41 86 24 99 02/26/20 12:39 78 19 195/129 H 98 02/26/20 12:19 37.3 C 84 22 195/129 H 95 Laboratory Results Short CBC 02/26/20 Range/Units 12:21 WBC 16.20 H (4.8-10.8) K/uL Hgb 14.2 (12.0-16.0) g/dL Hct 42.2 (37-47) % Plt Count 303 (130-400) K/uL BMP 02/26/20 12:21 Sodium 141 Potassium 3.5 Chloride 106 Carbon Dioxide 27 BUN 24 H Creatinine 0.88 Glucose 97 Calcium 9.6 Cardiac Enzymes 02/26/20 Range/Units 12:21 Troponin I < 0.015 (0-0.045) ng/ml Liver Function 02/26/20 Range/Units 12:21 Total Bilirubin 0.7 (0.2-1) mg/dl AST 17 (15-37) U/L ALT 31 (12-78) U/L Alkaline Phosphatase 59 (45-117) U/L Albumin 3.7 (3.4-5.0) gm/dl Urine 02/26/20 Range/Units 15:20 Urine Color Yellow Urine Appearance Clear (Clear) Urine pH 7.5 (4.5-7.5) Ur Specific [place] > 1.045 H (1.000-1.030) Urine Protein Negative (Negative) Urine Glucose (UA) Negative (Negative) Diagnostic Findings CXR: IMPRESSION: No significant change compared to the prior study. No acute process. Neck CTA: IMPRESSION: Unremarkable CTA of the neck. No significant stenosis. No dissection. Mild atherosclerotic plaque. Head CTA: IMPRESSION: 1. There is no hemorrhage, mass effect, or evidence of acute territorial ischemia by CT criteria noting angiographic phase technique. 2. There is a 3 mm aneurysm identified arising from the origin of the right posterior communicating artery. 3. Otherwise unremarkable CT angiogram of the brain. Head CT: Impression: No acute intracranial abnormality. Medications Administered Hydromorphone HCl (Hydromorphone Inj 0.5 Mg/0.5 Ml Syr) 0.5 mg IV Q15M PRN PRN Reason: Pain Stop: 03/11/20 13:10 Last Admin: 02/26/20 14:47 Dose: 0.5 mg Documented by: [id number] Admin: 02/26/20 13:46 Dose: 0.5 mg Documented by: [id number] Discontinued Medications Dexamethasone (Dexamethasone Sod Inj 10 Mg/Ml Vial) 10 mg IV NOW ONE Stop: 02/26/20 14:08 Last Admin: 02/26/20 14:37 Dose: 10 mg Documented by: [id number] Hydralazine HCl (Hydralazine Hcl 20 Mg/Ml Vial) 5 mg IV NOW ONE Stop: 02/26/20 16:16 Last Admin: 02/26/20 16:39 Dose: 5 mg Documented by: [id number] Ceftriaxone Sodium (Rocephin) 2,000 mg in 70 mls @ 140 mls/hr IV NOW STA Stop: 02/26/20 14:36 Last Infusion: 02/26/20 15:28 Dose: 0 mls/hr Documented by: [id number] Admin: 02/26/20 14:37 Dose: 140 mls/hr Documented by: [id number] Trimethoprim/Sulfamethoxazole (340 mg/ Dextrose) 521.25 mls @ 333 mls/hr IV NOW ONE Stop: 02/26/20 16:03 Last Admin: 02/26/20 15:35 Dose: 333 mls/hr Documented by: [id number] Acyclovir Sodium 680 mg/ (Dextrose) 263.6 mls @ 250 mls/hr IV NOW ONE Stop: 02/26/20 16:18 Last Admin: 02/26/20 15:55 Dose: 250 mls/hr Documented by: [id number] Acetaminophen (Ofirmev) 1,000 mg in 100 mls @ 400 mls/hr IV NOW STA Stop: 02/26/20 16:29 Last Admin: 02/26/20 16:39 Dose: 400 mls/hr Documented by: [id number] Ioversol (Optiray 320 125ml) 119 ml IV ONCE ONE Stop: 02/26/20 13:25 Last Admin: 02/26/20 13:25 Dose: 119 ml Documented by: [id number] Lidocaine HCl (Lidocaine Hcl 1% 20 Ml Vial) Confirm Administered Dose 20 ml .RHONDA VALDOVINOSSTK-MED ONE Stop: 02/26/20 14:43 Last Admin: 02/26/20 14:48 Dose: 20 ml Documented by: [id number] Metoclopramide HCl (Metoclopramide Hcl Inj 5 Mg/Ml 2 Ml Vial) 5 mg IV ONE ONE Stop: 02/26/20 16:16 Last Admin: 02/26/20 16:39 Dose: 5 mg Documented by: [id number] ECG Rate (beats per minute): 79 Rhythm: normal sinus Code Status & VTE Plan Code Status Full Code VTE Prophylaxis Plan VTE Prophylaxis will be ordered: Yes Supervising Physician Co-Signing Physician Notes I, Dr. Jabier Diehl, have seen and examined the patient Niyah Calvert and also discussed the plans with physician orthotic assistant and would like to comment that On physical exam: General: patient is uncomfortable and sometimes hard of hearing, but answers some questions, her grand daughter at bedside assisting with collaborative health history Heart: regular rate Blood pressure: systolic in the 180s Lungs: no crackles, no wheezing Abdomen: soft, has ostomy bag Neuro: moves all extremities, extra-occular movements appears intact, pupils reactive to light Assessment and Plan -Patient presents to Emergency with elevated blood pressure, headache, and left scapular area pain. Also noted to have leukocytosis with WBC of 16,000. Of note, patient has had recent steroid injection of Kenalog to Left medial rhomboid x2, left superior rhomboid x2 by pain management clinic for Myofascial pain with spasm -initially ED provider concerned for acute meningitis and gave IV Vancomycin, IV Ceftriaxone, IV Bactrim, IV decadrom, performed lumbar puncture but other than mildly elevated protein of 57.7 (reference range of normal is 15 to 45 mg/dl), the lumbar puncture does not appear to suggest bacterial meningitis -patient does have confusion as corroborated by grand daughter at bedside and will try to workup and ameliorate the acute encephalopathy by pain control medications and anxiolytics, blood pressure medications, prn anti-emetics, and continue IV antibiotics as ceftriaxone and doxycycline while awaiting blood cultures and ruling out any Lyme or anaplasmosis. Continue empiric IV acyclovir. No pneumonia on chest X ray and no bacteria in urine analysis. Check TSH and inflammatory markers -admission head CT No acute intracranial abnormality. -admission head/neck CTA: There is no hemorrhage, mass effect, or evidence of acute territorial ischemia by CT criteria noting angiographic phase technique. There is a 3 mm aneurysm identified arising from the origin of the right posterior communicating artery. -If headache pain is improved, and patient can get Brain MRI, this would help with diagnosis. Hold further steroids in case this contributes to confusion; monitor the WBC -Seek neurology consult and pain management consult. -replete electrolytes for magnesium and phosphorous, give banana bag -dysphagia screening and liquid diet for now. Most medications will be IV forms for now -DVT prophylaxis with Lovenox -Code Status of Full Code as per patient and witnessed by her grand daughter -agree with other assessment and plans as documented by physician orthotic assistant -My colleague Dr. Barraza will be the hospitalist attending starting on 02/27/2020
[2020-02-26 17:29] LABS: C Reactive Protein < 0.29 mg/dl (0-0.29); Phosphorus 1.6 mg/dl (2.5-4.9)
[2020-02-26] MEDS ORDERED: POTASSIUM PHOS 3 MMOL/1 ML INFUSION IV STA (17:30)
[2020-02-26] MEDS ORDERED: POTASSIUM PHOSPHATE 24 MMOL in SODIUM CHLORIDE 0.9% 500 ML IV ONE (18:00)
[2020-02-26 18:10] LABS: Creatine Kinase 46 U/L (26-192)
[2020-02-26 18:29] LABS: Procalcitonin < 0.05 ng/ml (0-0.5)
[2020-02-26 18:43] LABS: Lyme Ab IgG w/WB Rflx Negative (Negative); Lyme Ab IgM w/WB Rflx Negative (Negative)
--- NOTE | 2020-02-26 19:08 | Magnetic Resonance Report ---
Brain MRI WITHOUT CONTRAST HISTORY: Confusion. encephalopathy TECHNIQUE: Multiplanar multisequence MRI of the brain was performed without the use of contrast. COMPARISON STUDY: Brain MRI 02/26/2020. FINDINGS: Motion artifact. There is no mass, hematoma, midline shift, or acute infarct. The paranasal sinuses are clear. The ventricles and sulci demonstrate mild age-related involutional changes. Scatt ered foci of T2 hyperintensity seen within the periventricular and subcortical white matter are nonsp ecific but suggestive of mild microvascular ischemic changes. The major vascular flow voids at the sk ull base are well-maintained. Trace left mastoid effusion. IMPRESSION: Mild motion artifact. No definite acute intracranial abnormality. ACT 112: Negative or not required by law. Electronically signed by: Dillon Saldivar M.D. 02/26/2020 7:06 PM
[2020-02-26] MEDS ORDERED: LABETALOL HCL IV 5 MG/ML 20ML IV PRN (19:14)
[2020-02-26] MEDS ORDERED: MAGNESIUM SULFATE / D5W 1 GM/100 ML BAG IV ONE (19:14)
[2020-02-26] MEDS ORDERED: HYDROmorphone INJ 0.5 MG/0.5 ML SYR IV PRN (19:14)
[2020-02-26] MEDS ORDERED: PHARMACIST DISCHARGE MED REC CONSULT PRN (19:14)
[2020-02-26] MEDS ORDERED: ACETAMINOPHEN 65 ML IV PRN (19:14)
[2020-02-26] MEDS: NSS + 20MEQ KCL 20 MEQ/1,000 ML BAG IV SCH (19:57)
[2020-02-26] MEDS: DOXYCYCLINE HYCLATE 100 MG in DEXTROSE 5% 100 ML IV SCH (19:59)
[2020-02-26] MEDS: LIDOCAINE 5% 1 PATCH TD SCH (20:02)
[2020-02-26] MEDS ORDERED: ACYCLOVIR CONSULT ACTIVE PRN (20:14)
[2020-02-26] MEDS: ENOXAPARIN INJ 40 MG/0.4 ML SYR SQ SCH (21:19)
[2020-02-26] MEDS: DEXTROSE 5% IV SCH (23:43)
[2020-02-26] MEDS: ACYCLOVIR SOD IV SCH (23:43)
--- NOTE | 2020-02-27 06:05 | Electrocardiogram Report ---
Test Reason : Blood Pressure : / mmHG Vent. Rate : 079 BPM Atrial Rate : 079 BPM P-R Int : 164 ms QRS Dur : 088 ms QT Int : 364 ms P-R-T Axes : 002 -55 026 degrees QTc Int : 417 ms Normal sinus rhythm Left axis deviation Low voltage QRS Possible Anterolateral infarct (cited on or before 08-MAY-2019) Abnormal ECG When compared with ECG of 14-JUN-2019 16:27, Anterolateral infarct is now Present Confirmed by Link Booker ([id number]) on 02/27/2020 6:04:41 AM Referred By: REFERRED SELF Confirmed By:Link Booker
[2020-02-27 06:48] LABS: Hematocrit (blood only) 38.1 % (37-47); Hemoglobin 12.7 g/dL (12.0-16.0); Immature Granulocytes # (auto) 0.03 K/uL (0.00-0.02); Immature Granulocytes % (auto) 0.3 %; Lymphocytes # (auto) 0.48 K/uL (1.2-3.4); Lymphocytes % (auto) 5.1 %; Mean Corpuscular Hemoglobin 32.1 pg (25-34); Mean Corpuscular Hgb Conc 33.3 g/dL (32-36); Mean Corpuscular Volume 96.2 fL (80-100); Monocytes # (auto) 0.51 K/uL (0.11-0.59); Monocytes % (auto) 5.4 %; Neutrophils # (auto) 8.37 K/uL (1.4-6.5); Neutrophils % (auto) 89.2 %; Platelet Count 259 K/uL (130-400); RDW Coefficient of Variation 13.6 % (11.5-14.5); RDW Standard Deviation 48.3 fL (36.4-46.3); Red Blood Count 3.96 M/uL (4.2-5.4); White Blood Count 9.39 K/uL (4.8-10.8)
[2020-02-27 07:30] LABS: BUN Creatinine Ratio 16.1 (10-20); Calcium 8.7 mg/dl (8.5-10.1); Creatinine Clr Calc Pharmacy 50.9 ml/min; Est GFR (African American) 79.4; Est GFR (Non-African American) 68.5; Magnesium 2.3 mg/dl (1.8-2.4); Potassium 4.2 mmol/L (3.5-5.1)
[2020-02-27 07:33] LABS: Phosphorus 3.5 mg/dl (2.5-4.9)
[2020-02-27 08:11] LABS: Estimated Average Glucose 123 mg/dl; Hemoglobin A1C 5.9 % (4.5-5.6)
[2020-02-27] MEDS: NSS + 20MEQ KCL 20 MEQ/1,000 ML BAG IV SCH (08:43)
[2020-02-27] MEDS: ACYCLOVIR SOD IV SCH ×3 (08:43→23:29)
[2020-02-27] MEDS: DEXTROSE 5% IV SCH ×3 (08:43→23:29)
[2020-02-27] MEDS: ACETAMINOPHEN 1,000 MG/100 ML VIAL IV PRN (08:53)
[2020-02-27] MEDS: DOXYCYCLINE HYCLATE 100 MG in DEXTROSE 5% 100 ML IV SCH ×2 (08:54→20:25)
--- NOTE | 2020-02-27 13:18 | Consultation Report ---
DATE OF CONSULTATION: 02/27/2020 NEUROLOGY CONSULTATION NOTE A 74-year-old female. CHIEF COMPLAINT: Altered mental status. HISTORY OF PRESENT ILLNESS: A 74-year-old woman who presented to the Emergency Department yesterday due to acute-onset headache x12 hours, confusion, and elevated blood pressures. She has a past medical history of ulcerative colitis, on chronic prednisone, osteoporosis and chronic pain. History was somewhat limited on admission due to patient's confusion. She does live at home by herself. Per granddaughter at bedside, the patient was totally off and much more confused. She has never been like that before. Last known normal was unknown. The patient complained of a severe frontal headache upon arrival. In the Emergency Department, the patient was found to have accelerated hypertension. A stroke alert was initiated. 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 Labs showed elevated WBC of 16 and creatinine of 1.88. Urinalysis was negative. A spinal tap was performed in the Emergency Department, which showed mildly elevated protein, and she was covered with broad spectrum IV antibiotics including ceftriaxone, acyclovir and Bactrim. Neurology was consulted for further evaluation. ALLERGIES: PENICILLIN, CIPRO, CIPROFLOXACIN, METRONIDAZOLE, ADHESIVE TAPE, ZOFRAN, CODEINE, QUINOLONES, TRAMADOL, VANCOMYCIN. HOME MEDICATIONS: Aspirin 81 mg daily, omeprazole 20 mg, Lasix 20, prednisone 5 mg daily, Crestor 5 mg, turmeric 1000 mg twice daily, vitamin C, baclofen, vitamin B. PAST MEDICAL HISTORY: Cervical radiculopathy, Clostridium difficile, dyslipidemia, gastroesophageal reflux disease, herpes zoster, kidney stones, degenerative joint disease, polymyalgia rheumatica, small-bowel obstruction, ulcerative colitis. PAST SURGICAL HISTORY: Includes ileostomy, oral surgery, ventral hernia repair, colectomy, appendectomy, colonoscopy, dilation and curettage, tonsillectomy, tubal ligation. FAMILY HISTORY: Her grandmother had breast cancer, grandmother also had colon cancer. Father had rheumatic heart disease and her mother had thyroid cancer. SOCIAL HISTORY: She is a former smoker, quit smoking 25 years ago. She drinks wine and hard liquor socially. She is . REVIEW OF SYSTEMS: Unable to be obtained due to altered mental status. PHYSICAL EXAMINATION: VITAL SIGNS: Blood pressure 154/75, pulse is 83, respiratory rate is 19, temperature is 36.7, 95% on room air. EXAM: Constitutional: appearance normally developed Face: normocephalic and atraumatic Eyes: normal lids, normal conjunctiva Neck: supple Respiratory: normal effort Cardiovascular: normal pulses Abdomen: non distended Skin: no rashes, lesions, or ulcers noted Psychiatric: normal mood and normal affect NEUROLOGIC EXAMINATION: Appearance: no acute distress Orientation: awake, alert and oriented x 3 Mental Status: alert Attention: normal Knowledge: appropriate Language: no aphasia Speech: no dysarthria Cranial Nerves: CN 2 - no visual defect on confrontation and pupils round, equal, CN 3, 4, 6 - extra-ocular movements intact CN 5 - facial sensation intact CN 7 - no facial asymmetry CN 8 - intact hearing CN 9, 10 - palate symmetric CN 11 - good shoulder shrug CN 12 - tongue midline Gait: deferred Coordination: no ataxia with finger to nose testing Sensory: intact and symmetric to light touch Muscle Tone: normal Muscle exam: No focal weakness Reflexes: Negative squires sign DIAGNOSTIC TESTING: WBC was 16.2, hemoglobin was 14.2, platelet count 303. Sodium 140, potassium 4.2, chloride 109, BUN 13, creatinine 0.83, glucose 117. Hemoglobin A1c 5.9. Magnesium 2.3. LDL cholesterol was 48. Urinalysis showed trace blood, 20-30 epithelial cells. CSF study showed clear colorless fluid with no xanthochromia, 0 WBCs, 54 RBCs, 54 glucose, 57 protein. Negative C. difficile was performed in May. Blood cultures are pending. CSF cultures, no growth to date. IMAGING: Brain MRI without contrast showed mild motion artifact. No definitive acute intracranial abnormality. No mass effect, hematoma, midline shift, or acute infarct. Mild microvascular ischemic changes. ASSESSMENT AND PLAN: A 74-year-old woman admitted to the hospital with presumed hypertensive encephalopathy. Encephalopathy resolved. Systolic blood pressures were in [id number] and diastolic blood pressures were greater than 120 on arrival. Headache likely secondary to accelerated hypertension. Cerebrospinal fluid studies are not suggestive of an infectious etiology. Upon review of the studies, it does appear to be a traumatic tap with a mildly elevated protein level. MRI brain without contrast was reviewed and it is happy to report there is no evidence of acute ischemic stroke. Agree with gradual reduction of blood pressure with blood pressure goal of systolic blood pressure less than 140, diastolic blood pressure less than 90. Please contact me with any further questions or concerns. MTDD
[2020-02-27] MEDS ORDERED: cefTRIAXone SODIUM 2,000 MG in DEXTROSE 5% 50 ML IV SCH (14:00)
[2020-02-27] MEDS: LIDOCAINE 5% 1 PATCH TD SCH (21:00)
[2020-02-27] MEDS: ENOXAPARIN INJ 40 MG/0.4 ML SYR SQ SCH (21:02)
--- NOTE | 2020-02-27 23:03 | Hospitalist Progress Note ---
Date of Service February 27, 2020 Assessment & Plan (1) Acute encephalopathy: Presented with acute altered mental status. Had recently started baclofen for severe upper back / shoulder pain. Neuroimaging by CT and MR did not show any acute event. LP performed. CSF protein 57, glucose 54, 0 WBC's, 54 RBC's. CSF culture negative so far. Neurology consulted. Possible hypertensive encephalopathy (although pt feels this is unlikely). Probable metabolic encephalopathy secondary to baclofen. Neuro status improved. (2) Leukocytosis: WBC 16,620 at time of admission. Lactate elevated, improved. Procalcitonin < 0.05. Chest x-ray did not show any acute changes. UA essentially negative. LP results do not suggest meningitis. Blood cultures obtained- negative so far. Started empirically on ceftriaxone, doxy, acyclovir. No apparent infection identified at this time. DC antibiotics if cultures negative at 48 hours. (3) Hypertensive emergency: Initial BP in ED 195/129. History of intermittent elevations of blood pressures, but not treated for hypertension. Received IV hydralazine in ED. Blood pressure improved. Hypertensive emergency with possible hypertensive encephalopathy. Follow blood pressures and treat as necessary. (4) Cervical radiculopathy: Severe left upper back / shoulder pain. Suspected cervical radiculopathy. Recently prescribed baclofen may have contributed to confusion. Patient requesting Ortho Spine consult. (5) Polymyalgia rheumatica: Continue prednisone 5 mg daily. (6) DVT prophylaxis: SQ enoxaparin. (7) Discharge planning issues: Anticipated discharge to home. Internal Medicine follow-up with Dr. Ruiz. Admission and Anticipated Discharge Date Admission Date: February 26, 2020 Subjective Recheck for altered mental status and other problems. Patient seen in their room around 1610. Daughter visiting. Admitted yesterday with confusion associated with headache and elevated blood pressures. Feels much better today. Cognitive status back to baseline. No headache. Review of Systems: Constitutional- no fever. Cardiac- no chest pain. Pulmonary- no cough or SOB. GI- no nausea, vomiting, diarrhea, melena, hematochezia. - no urinary symptoms. Otherwise, as noted above. Physical Exam Constitutional: no acute distress Respiratory: no respiratory distress Auscultation: lungs clear to auscultation bilaterally Cardiovascular: Rate/Rhythm: regular rate and regular rhythm Vessels: no JVD Extremities: no calf tenderness and no edema Gastrointestinal (Abdomen): normal bowel sounds, soft, nontender, no hepatospl enomegaly Musculoskeletal: Extremities: no cyanosis Skin: no rashes, warm and dry Neurologic: alert, oriented x 3 able to name months of year backwards without error PERRL no facial palsy no dysarthria or aphasia motor strength extremities intact Psychiatric: Orientation: alert and oriented x 3 Results & Data Results & Data ([facility]) Vital Signs (Past 12 Hours) Vital Signs Temp Pulse Resp BP BP Pulse Ox 02/27/20 20:04 36.9 C 101 H 14 143/80 H 95 02/27/20 15:59 37.1 C 82 16 142/83 H 95 02/27/20 12:07 36.7 C 83 19 154/75 H 95 Laboratory Results Laboratory Results - last 24 hr 02/27/20 02/27/20 02/27/20 06:29 06:29 06:29 WBC 9.39 RBC 3.96 L Hgb 12.7 Hct 38.1 MCV 96.2 MCH 32.1 MCHC 33.3 RDW Std Deviation 48.3 H RDW Coeff of Deandre 13.6 Plt Count 259 MPV 10.0 Immature Gran % (Auto) 0.3 Neut % (Auto) 89.2 Lymph % (Auto) 5.1 [place] % (Auto) 5.4 Eos % (Auto) 0.0 Baso % (Auto) 0.0 Neut # (Auto) 8.37 H Lymph # (Auto) 0.48 L [place] # (Auto) 0.51 Eos # (Auto) 0.00 Baso # (Auto) 0.00 Immature Gran # (Auto) 0.03 H Sodium 140 Potassium 4.2 D Chloride 109 H Carbon Dioxide 23 Anion Gap 8.0 BUN 13 Creatinine 0.83 Est Cr Clr Drug Dosing 50.9 Est GFR ( Amer) 79.4 Est GFR (Non-Af Amer) 68.5 BUN/Creatinine Ratio 16.1 Glucose 117 H Estimat Average Glucose 123 Hemoglobin A1c 5.9 H Calcium 8.7 Phosphorus 3.5 D Magnesium 2.3 Triglycerides 111 Cholesterol 144 LDL Cholesterol, Calc 48 VLDL Cholesterol, Calc 22 HDL Cholesterol 74 Cholesterol/HDL Ratio 2 Specimen Hemolysis
[2020-02-28] MEDS: ACETAMINOPHEN 1,000 MG/100 ML VIAL IV PRN (00:36)
[2020-02-28 01:13] LABS: Amphetamines+Metham, Urine Neg (Neg); Barbiturates, Urine Neg (Neg); Benzodiazepine, Urine Neg (Neg); Cocaine, Urine Neg (Neg); MDMA (Ecstacy), Urine Neg (Neg); Methadone, Urine Neg (Neg); Opiate, Urine Neg (Neg); Phencyclidine, Urine Neg (Neg)
[2020-02-28 06:21] LABS: Basophils # (auto) 0.03 K/uL (0-0.2); Basophils % (auto) 0.3 %; Eosinophils # (auto) 0.03 K/uL (0-0.5); Eosinophils % (auto) 0.3 %; Hematocrit (blood only) 36.6 % (37-47); Hemoglobin 12.1 g/dL (12.0-16.0); Immature Granulocytes # (auto) 0.02 K/uL (0.00-0.02); Immature Granulocytes % (auto) 0.2 %; Lymphocytes # (auto) 1.35 K/uL (1.2-3.4); Lymphocytes % (auto) 13.6 %; Mean Corpuscular Hemoglobin 32.4 pg (25-34); Mean Corpuscular Hgb Conc 33.1 g/dL (32-36); Mean Corpuscular Volume 98.1 fL (80-100); Monocytes # (auto) 1.07 K/uL (0.11-0.59); Monocytes % (auto) 10.7 %; Neutrophils # (auto) 7.46 K/uL (1.4-6.5); Neutrophils % (auto) 74.9 %; Platelet Count 259 K/uL (130-400); Red Blood Count 3.73 M/uL (4.2-5.4); White Blood Count 9.96 K/uL (4.8-10.8)
[2020-02-28 06:48] LABS: BUN Creatinine Ratio 21.9 (10-20); Creatinine Clr Calc Pharmacy 54.6 ml/min; Est GFR (African American) 86.9
[2020-02-28] MEDS: ACETAMINOPHEN 500 MG TAB PO PRN ×2 (10:59→21:19)
--- NOTE | 2020-02-28 11:03 | Orthopedic Consultation ---
Date of Consultation February 28, 2020 Assessment & Plan (1) Cervical radiculopathy: I discussed with this patient updating a cervical MRI. She would like to pursue this. I would be able to compare this to her one in September. We will make further recommendations upon review. Present on Admission?: Yes History of Present Illness Reason for Consultation: Patient complaining of significant left scapular and left arm pain. Attending Physician: Yousuf Barraza MD History of Present Illness This a very pleasant 74-year-old female that states that she began experiencing significant left arm symptoms several days ago. She denies any specific trauma fall or event. The right upper extremity is asymptomatic. She is left-hand dominant. The symptoms radiate down into her left scapula down the posterior upper arm and into all of her fingers. She does obtain some relief with sh oulder abduction positioning. Allergies Allergy/AdvReac Type Severity Reaction Status Date / Time Penicillins Allergy Severe Hives Verified 02/26/20 14:39 Cipro Allergy Intermediate SEVERE RASH Verified 01/24/14 12:55 ciprofloxacin Allergy Intermediate SEVERE RASH Verified 02/26/20 14:39 metronidazole [From Flagyl] Allergy Intermediate rash Verified 02/26/20 15:43 adhesive Allergy Mild Rash Verified 02/26/20 14:39 ondansetron [From Zofran] Allergy Mild Rash Verified 02/26/20 14:39 codeine Allergy Unknown n/v Verified 02/26/20 14:39 pinpoint pupils infliximab Allergy Unknown Unknown Verified 02/26/20 14:39 Quinolones Allergy Unknown Unknown Verified 02/26/20 14:39 tramadol Allergy Unknown bradycardia Verified 02/26/20 14:39 vancomycin Allergy Unknown Maris Verified 02/26/20 14:39 syndrome NONSTEROIDAL Allergy Unknown NAPROXEN Uncoded 02/26/20 14:39 Home Medications Home Medications Medication Instructions Recorded Confirmed Type aspirin 81 mg tablet,delayed 81 mg PO DAILY 04/19/19 02/26/20 History release omeprazole magnesium 20 mg 20 mg PO QAM 04/19/19 02/26/20 History tablet,delayed release potassium chloride 10 mEq 10 meq PO 3XWK PRN 04/19/19 02/26/20 History capsule,extended release furosemide [Lasix] 20 mg PO 3XWK 05/08/19 02/26/20 History prednisone 5 mg PO DAILY 05/08/19 02/26/20 History rosuvastatin 5 mg PO DAILY 05/08/19 02/26/20 History Turmeric Curcumin 1,000 mg PO BID 02/26/20 02/26/20 History acetaminophen [Tylenol] 650 mg PO BID 02/26/20 02/26/20 History ascorbic acid (vitamin C) [Vitamin 1 g PO DAILY 02/26/20 02/26/20 History C] baclofen 10 mg PO BID PRN 02/26/20 02/26/20 History clobetasol [Temovate] 1 applic TOPICAL BID 02/26/20 02/26/20 History mupirocin [Bactroban] 1 applic TOPICAL BID 02/26/20 02/26/20 History vitamin B complex 1 tab PO DAILY 02/26/20 02/26/20 History Patient History Medical History (Updated 02/28/20 @ 00:35 by Yousuf Barraza MD) Cervical pain Cervical radiculopathy Clostridium difficile infection Dyslipidemia GERD (gastroesophageal reflux disease) Herpes zoster Kidney stones Left knee DJD Missed Osteoarthritis Parastomal hernia with obstruction and without gangrene S/p repair Polymyalgia rheumatica SBO (small bowel obstruction) Ulcerative colitis Surgical History H/O ileostomy H/O oral surgery H/O ventral hernia repair History of colectomy S/P appendectomy S/P colonoscopy S/P dilation and curettage S/P repair of ventral hernia parastomal with placement of biologic mesh S/P tonsillectomy and adenoidectomy S/P tubal ligation Family History Grandmother (Paternal) Breast cancer Grandmother (Maternal) Colorectal cancer Father Rheumatic heart disease Mother Thyroid cancer Social History (Updated 02/26/20 @ 17:07 by Syeda Mendoza PA-C) Smoking Status: Former smoker Years Smoked: 25; Cigarettes Per Day: 0.5; Second Hand Exposure: No; Hx Alcohol Use: Yes Alcohol type: wine and hard liquor Alcohol Intake Frequency Comment: Per epic: "Social" Hx Substance Use: No Preferred Language: [place] Citizen Communication Ability: Effective Roll Tender Required: No Beliefs That Will Affect Care: None marital status: / Current Living Situation: Alone current occupational status: retired Feels Safe at Home: Yes Safety Concerns: Feels Safe At This Time Assistive Devices: Glasses Physical Exam Physical Exam: Patient is in the chair at the bedside. She demonstrates a positive Spurling sign to the left negative to the right. She is marked difficulty with cervical extension is this reproduces radicular signs. She exhibits reasonable strength detailed testing bilateral upper extremities. She has no pain with range of motion of the left shoulder. Results & Data ([facility]) Vital Signs (Past 12 Hours) Vital Signs Temp Pulse Pulse Resp BP BP Pulse Ox 02/28/20 09:00 92 H 02/28/20 08:01 36.8 C 76 19 135/86 94 02/28/20 03:44 37 C 76 15 156/66 H 94 02/27/20 23:29 36.5 C 79 18 147/76 H 95 02/27/20 23:19 79
[2020-02-28] MEDS: PANTOprazole 40 MG TAB PO SCH (12:02)
[2020-02-28] MEDS: predniSONE 5 MG TAB PO SCH (12:03)
--- NOTE | 2020-02-28 13:32 | Magnetic Resonance Report ---
CERVICAL SPINE MRI HISTORY: left arm pain TECHNIQUE: Multiplanar multisequence MRI of the cervical spine was performed without the use of contr ast. COMPARISON STUDY: Neck CTA 02/26/2020. FINDINGS: There is mild reversal the normal daughter curvature. There is 1 mm of anterolisthesis of C 4 on C5 and C3 on C4. Mild disc space narrowing at C4-C5. Severe disc space narrowing at C5-C6 and C6 -C7. The visualized posterior fossa is unremarkable. The cervical spinal cord demonstrates a normal s ignal intensity. No fractures within the cervical spine. Prevertebral soft tissues and the C1-C2 inte rval are intact. C2-C3: Small focal central disc protrusion without significant central canal are right-sided neural f oraminal narrowing. There is moderate left-sided neural foraminal narrowing. C3-C4: No significant central canal narrowing. There is mild left and moderate right neural foraminal narrowing. C4-C5: Small focal central disc protrusion which abuts and slightly deforms the anterior cord consist ent with mild central canal narrowing. There is also mild to moderate right-sided neural foraminal na rrowing. C5-C6: Broad-based posterior disc bulge with a left paracentral focal disc protrusion which abuts and slightly deforms anterior cord resulting in moderate central canal narrowing. There is moderate to s evere bilateral neural foraminal narrowing due to the uncovertebral hypertrophy. C6-C7: Broad-based posterior disc osteophyte complex resulting in mild central canal narrowing. There is moderate to severe bilateral neural foraminal narrowing. C7-T1: Broad-based posterior disc osteophyte complex asymmetric to the left with a left paracentral/f oraminal focal disc protrusion. This appears to compress the exiting left nerve root at this level an d results in mild central canal narrowing. There is mild right and severe left neural foraminal narro wing. IMPRESSION: 1. No fractures within the cervical spine. 2. Mild reversal of the normal lordotic curvature. 3. Multilevel cervical spondylosis as described above most pronounced at the C5-C6 and C7-T1 levels. ACT 112: Negative or not required by law. Electronically signed by: Dillon Saldivar M.D. 02/28/2020 1:31 PM
[2020-02-28] MEDS: CELECOXIB 100 MG CAP PO SCH (20:22)
[2020-02-28] MEDS: ENOXAPARIN INJ 40 MG/0.4 ML SYR SQ SCH (20:22)
--- NOTE | 2020-02-28 21:44 | Hospitalist Progress Note ---
Date of Service February 28, 2020 Assessment & Plan (1) Acute encephalopathy: Presented with acute altered mental status. Had recently started baclofen for severe upper back / shoulder pain. Neuroimaging by CT and MR did not show any acute event. LP performed. CSF protein 57, glucose 54, 0 WBC's, 54 RBC's. CSF culture negative so far. Neurology consulted. Possible hypertensive encephalopathy (although pt feels this is unlikely). Probable metabolic encephalopathy secondary to baclofen. Neuro status improved; cognitive status back to baseline. (2) Leukocytosis: WBC 16,620 at time of admission. Lactate elevated, improved. Procalcitonin < 0.05. Chest x-ray did not show any acute changes. UA essentially negative. LP results did not suggest meningitis. Blood cultures obtained. Started empirically on ceftriaxone, doxy, acyclovir. Cultures negative. No apparent infection identified at this time. DC antibiotics. (3) Hypertensive emergency: Initial BP in ED 195/129. History of intermittent elevations of blood pressures, but not treated for hypertension. Received IV hydralazine in ED. Blood pressure improved. Hypertensive emergency with possible hypertensive encephalopathy. Follow blood pressures and treat as necessary. (4) Cervical radiculopathy: Severe left upper back / shoulder pain. Suspected cervical radiculopathy. Has been seen by Pain Management. S/P epidural with good results, but then pain recurred. Recently prescribed baclofen may have contributed to confusion. Patient requesting Ortho Spine consult. Severe pain last night. Try low dose celecoxib with caution + hydrocodone / acetaminophen PRN. (5) Polymyalgia rheumatica: Continue prednisone 5 mg daily. (6) DVT prophylaxis: SQ enoxaparin. (7) Discharge planning issues: Anticipated discharge to home. Internal Medicine follow-up with Dr. Ruiz. Admission and Anticipated Discharge Date Admission Date: February 26, 2020 Subjective Recheck for altered mental status and other problems. Patient seen in their room around 0910. Feels much better today. Cognitive status back to baseline. No headache. Unable to sleep last night because of severe pain in left upper back/shoulder. Review of Systems: Constitutional- no fever. Cardiac- no chest pain. Pulmonary- no cough or SOB. GI- no nausea, vomiting, diarrhea, melena, hematochezia. - no urinary symptoms. Otherwise, as noted above. Physical Exam Constitutional: no acute distress Respiratory: no respiratory distress Auscultation: lungs clear to auscultation bilaterally Cardiovascular: Rate/Rhythm: regular rate and regular rhythm Vessels: no JVD Extremities: no calf tenderness and no edema Gastrointestinal (Abdomen): normal bowel sounds, soft, nontender, no hepatosplenomegaly Musculoskeletal: Extremities: no cyanosis Skin: no rashes, warm and dry Psychiatric: Orientation: alert and oriented x 3 Results & Data Results & Data ([facility]) Vital Signs (Past 12 Hours) Vital Signs Temp Pulse Resp BP Pulse Ox 02/28/20 14:06 36.7 C 69 16 163/88 H 95 Laboratory Results Laboratory Results - last 24 hr 02/28/20 02/28/20 02/28/20 00:41 06:09 06:09 WBC 9.96 RBC 3.73 L Hgb 12.1 Hct 36.6 L MCV 98.1 MCH 32.4 MCHC 33.1 RDW Std Deviation 50.0 H RDW Coeff of Deandre 14.0 Plt Count 259 MPV 10.0 Immature Gran % (Auto) 0.2 Neut % (Auto) 74.9 Lymph % (Auto) 13.6 [place] % (Auto) 10.7 Eos % (Auto) 0.3 Baso % (Auto) 0.3 Neut # (Auto) 7.46 H Lymph # (Auto) 1.35 [place] # (Auto) 1.07 H Eos # (Auto) 0.03 Baso # (Auto) 0.03 Immature Gran # (Auto) 0.02 Sodium 142 Potassium 4.0 Chloride 113 H Carbon Dioxide 22 Anion Gap 7.0 BUN 17 Creatinine 0.77 Est Cr Clr Drug Dosing 54.6 Est GFR ( Amer) 86.9 Est GFR (Non-Af Amer) 75.0 BUN/Creatinine Ratio 21.9 H Glucose 100 H Calcium 9.0 Urine Opiates Screen Neg Ur Methadone, Qual Neg Urine Barbiturates Neg Ur Phencyclidine (PCP) Neg U Amphetamin/Meth Scrn Neg MDMA (Ecstasy) Screen Neg U Benzodiazepines Scrn Neg Ur Cocaine Metabolite Neg U Marijuana (THC) Screen Neg
[2020-02-29 06:47] LABS: Basophils # (auto) 0.02 K/uL (0-0.2); Basophils % (auto) 0.2 %; Eosinophils # (auto) 0.14 K/uL (0-0.5); Eosinophils % (auto) 1.7 %; Hematocrit (blood only) 37.7 % (37-47); Hemoglobin 12.4 g/dL (12.0-16.0); Immature Granulocytes # (auto) 0.02 K/uL (0.00-0.02); Immature Granulocytes % (auto) 0.2 %; Lymphocytes # (auto) 1.31 K/uL (1.2-3.4); Lymphocytes % (auto) 15.7 %; Mean Corpuscular Hemoglobin 32.6 pg (25-34); Mean Corpuscular Hgb Conc 32.9 g/dL (32-36); Mean Corpuscular Volume 99.2 fL (80-100); Mean Platelet Volume 10.1 fL (7.4-10.4); Monocytes # (auto) 1.04 K/uL (0.11-0.59); Monocytes % (auto) 12.5 %; Neutrophils # (auto) 5.82 K/uL (1.4-6.5); Neutrophils % (auto) 69.7 %; Platelet Count 255 K/uL (130-400); RDW Coefficient of Variation 13.9 % (11.5-14.5); RDW Standard Deviation 49.9 fL (36.4-46.3); White Blood Count 8.35 K/uL (4.8-10.8)
[2020-02-29 07:22] LABS: BUN Creatinine Ratio 24.8 (10-20); Calcium 8.6 mg/dl (8.5-10.1); Creatinine Clr Calc Pharmacy 65.7 ml/min; Est GFR (African American) 100.5; Est GFR (Non-African American) 86.7; Potassium 3.9 mmol/L (3.5-5.1)
[2020-02-29] MEDS: predniSONE 5 MG TAB PO SCH (08:30)
[2020-02-29] MEDS: ROSUVASTATIN CALCIUM 5 MG TAB PO SCH (08:30)
[2020-02-29] MEDS: CELECOXIB 100 MG CAP PO SCH (08:30)
[2020-02-29] MEDS: PANTOprazole 40 MG TAB PO SCH (08:30)
--- NOTE | 2020-02-29 20:32 | Hospitalist Progress Note ---
Date of Service February 29, 2020 Assessment & Plan (1) Acute encephalopathy: Presented with acute altered mental status. Had recently started baclofen for severe upper back / shoulder pain. Neuroimaging by CT and MR did not show any acute event. LP performed. CSF protein 57, glucose 54, 0 WBC's, 54 RBC's. CSF culture negative so far. Neurology consulted. Possible hypertensive encephalopathy (although pt feels this is unlikely). Probable metabolic encephalopathy secondary to baclofen. Neuro status improved; cognitive status back to baseline. (2) Leukocytosis: WBC 16,620 at time of admission. Lactate elevated, improved. Procalcitonin < 0.05. Chest x-ray did not show any acute changes. UA essentially negative. LP results did not suggest meningitis. Blood cultures obtained. Started empirically on ceftriaxone, doxy, acyclovir. Cultures negative. No apparent infection identified at this time. Antibiotics discontinued. (3) Hypertensive emergency: Initial BP in ED 195/129. History of intermittent elevations of blood pressures, but not treated for hypertension. Received IV hydralazine in ED. Blood pressure improved. Hypertensive emergency with possible hypertensive encephalopathy. Follow blood pressures and treat as necessary. (4) Cervical radiculopathy: Severe left upper back / shoulder pain. Suspected cervical radiculopathy. Has been seen by Pain Management. S/P epidural with good results, but then pain recurred. Recently prescribed baclofen may have contributed to confusion. Patient requesting Ortho Spine consult. Celecoxib not effective- DC. Continue hydrocodone / acetaminophen PRN. (5) Polymyalgia rheumatica: Continue prednisone 5 mg daily. (6) DVT prophylaxis: SQ enoxaparin. (7) Discharge planning issues: Anticipated discharge to home. Internal Medicine follow-up with Dr. Ruiz. Follow-up with [facility]. Admission and Anticipated Discharge Date Admission Date: February 26, 2020 Subjective Recheck for altered mental status and other problems. Patient seen in their room around 1050. Ongoing pain radiating down her LUE. She does not feel that celecoxib is helping, but gets some relief from hydrocodone / acetaminophen. Confusion essentially resolved, but still having some visual disturbances (improved). Review of Systems: Constitutional- no fever. Cardiac- no chest pain. Pulmonary- no cough or SOB. GI- no nausea, vomiting, diarrhea, melena, hematochezia. - no urinary symptoms. Otherwise, as noted above. Physical Exam Constitutional: no acute distress Respiratory: no respiratory distress Auscultation: lungs clear to auscultation bilaterally Cardiovascular: Rate/Rhythm: regular rate and regular rhythm Vessels: no JVD Extremities: no calf tenderness and no edema Gastrointestinal (Abdomen): normal bowel sounds, soft, nontender, no hepatosplenomegaly Musculoskeletal: Extremities: no cyanosis Skin: no rashes, warm and dry Psychiatric: Orientation: alert and oriented x 3 Results & Data Results & Data ([facility]) Vital Signs (Past 12 Hours) Vital Signs Temp Pulse Resp BP Pulse Ox 02/29/20 15:35 36.8 C 61 16 162/89 H 95 Laboratory Results 02/29/20 06:29 02/29/20 06:29
[2020-02-29] MEDS: ENOXAPARIN INJ 40 MG/0.4 ML SYR SQ SCH (20:53)
[2020-03-01] MEDS: PANTOprazole 40 MG TAB PO SCH (08:06)
[2020-03-01] MEDS: ROSUVASTATIN CALCIUM 5 MG TAB PO SCH (08:07)
[2020-03-01] MEDS: predniSONE 5 MG TAB PO SCH (08:07)
[2020-03-01] MEDS: ACETAMINOPHEN 500 MG TAB PO PRN ×2 (08:17→21:01)
--- NOTE | 2020-03-01 12:38 | Orthopedic Progress Note ---
Date of Service March 01, 2020 Assessment & Plan (1) Cervical radiculopathy: Admission and Anticipated Discharge Date Admission Date: February 26, 2020 Patient's updated MRI has clear evidence of a C5-6 disc protrusion with encroachment of the exiting C6 nerve root as well as advanced protrusion disc herniation at C7-T1. This fits her presentation and pain patterns. I reviewed these findings with the patient. At this point we are recommending repeating a cervical epidural injection. However if this fails to provide any relief she would ultimately be a candidate for anterior cervical discectomy and fusion at C5-6 and C7-T1. Patient understands agrees with this plan. Subjective Patient still complaining of significant left arm symptoms radiating into the entire hand and interscapular region. Physical Exam Physical Exam: On exam she is obviously uncomfortable. Sensory deficits to left arm. Noticed significant strength deficits. Results & Data ([facility]) Vital Signs (Past 12 Hours) Vital Signs Temp Pulse Resp BP BP Pulse Ox 03/01/20 12:16 94 H 18 151/93 H 95 03/01/20 07:44 37.1 C 68 16 164/84 H 95
[2020-03-01] MEDS: ENOXAPARIN INJ 40 MG/0.4 ML SYR SQ SCH (20:12)
--- NOTE | 2020-03-01 21:12 | Hospitalist Progress Note ---
Date of Service March 01, 2020 Assessment & Plan (1) Acute encephalopathy: Presented with acute altered mental status. Had recently started baclofen for severe upper back / shoulder pain. Neuroimaging by CT and MR did not show any acute event. LP performed. CSF protein 57, glucose 54, 0 WBC's, 54 RBC's. CSF culture negative so far. Neurology consulted. Possible hypertensive encephalopathy (although pt feels this is unlikely). Probable metabolic encephalopathy secondary to baclofen. Neurocognitive status back to baseline. (2) Leukocytosis: WBC 16,620 at time of admission. Lactate elevated, improved. Procalcitonin < 0.05. Chest x-ray did not show any acute changes. UA essentially negative. LP results did not suggest meningitis. Blood cultures obtained. Started empirically on ceftriaxone, doxy, acyclovir. Cultures negative. No apparent infection identified at this time. Antibiotics discontinued. (3) Hypertensive emergency: Initial BP in ED 195/129. History of intermittent elevations of blood pressures, but not treated for hypertension. Received IV hydralazine in ED. Blood pressure improved. Hypertensive emergency with possible hypertensive encephalopathy. Follow blood pressures and treat as necessary. (4) Cervical radiculopathy: Severe left upper back / shoulder pain. Suspected cervical radiculopathy. Has been seen by Pain Management. S/P epidural with good results, but then pain recurred. Recently prescribed baclofen may have contributed to confusion. Patient requested Ortho Spine consult. Celecoxib not effective. Continue hydrocodone / acetaminophen PRN. (5) Polymyalgia rheumatica: Continue prednisone 5 mg daily. (6) DVT prophylaxis: SQ enoxaparin. (7) Discharge planning issues: Anticipated discharge to home. Internal Medicine follow-up with Dr. uRiz. [place] [facility]. Admission and Anticipated Discharge Date Admission Date: February 26, 2020 Subjective Recheck for altered mental status and other problems. Patient seen in their room around 1120. Ongoing pain radiating down her LUE. Confusion and hallucinations resolved. Review of Systems: Constitutional- no fever. Cardiac- no chest pain. Pulmonary- no cough or SOB. GI- no nausea, vomiting, diarrhea, melena, hematochezia. - no urinary symptoms. Otherwise, as noted above. Physical Exam Constitutional: no acute distress Respiratory: no respiratory distress Auscultation: lungs clear to auscultation bilaterally Cardiovascular: Rate/Rhythm: regular rate and regular rhythm Vessels: no JVD Extremities: no calf tenderness and no edema Gastrointestinal (Abdomen): normal bowel sounds, soft, nontender, no hepatosplenomegaly Musculoskeletal: Extremities: no cyanosis Skin: no rashes, warm and dry Psychiatric: Orientation: alert and oriented x 3 Results & Data Results & Data ([facility]) Vital Signs (Past 12 Hours) Vital Signs Temp Pulse Resp BP BP Pulse Ox 03/01/20 15:27 36.7 C 95 H 18 134/89 95 03/01/20 12:16 94 H 18 151/93 H 95
[2020-03-02] MEDS: ACETAMINOPHEN 500 MG TAB PO PRN ×2 (03:23→09:21)
[2020-03-02] MEDS: ROSUVASTATIN CALCIUM 5 MG TAB PO SCH (09:01)
[2020-03-02] MEDS: predniSONE 5 MG TAB PO SCH (09:01)
[2020-03-02] MEDS: PANTOprazole 40 MG TAB PO SCH (09:01)
--- NOTE | 2020-03-02 09:04 | Pain Management Consultation ---
Date of Consultation March 02, 2020 Assessment & Plan (1) Cervical radiculopathy: * Patient's presenting symptoms consistent with left upper extremity cervical radiculopathy correlating with MRI findings of C5-6 and C7-T1 osteophyte complex with left paracentral disc protrusions contributing to neural foraminal narrowing. MRI findings reviewed with patient. * Will plan for outpatient C7-T1 interlaminar RICKY. Will tentatively be scheduled for 03/08/2020. Patient will be contacted for preprocedural instructions later today. * Patient will follow-up with Dr. Mcfarland in the outpatient setting should she fail to respond to repeat cervical RICKY Thank you for allowing us to participate in the care of Mrs. Calvert Present on Admission?: Yes History of Present Illness Reason for Consultation: Cervical radiculopathy Requesting Physician: Kota Mcfarland DO Attending Physician: Yousuf Barraza MD History of Present Illness Mrs. Calvert is a 74-year-old who is well-known to the pain service from outpatient treatment of cervical radiculopathy. She was recently admitted due to encephalopathy potentially related to baclofen utilization, which was prescribed by her PCP for neck and shoulder pain complaints. There was potential concern for hypertensive encephalopathy, but probable metabolic encephalopathy secondary to baclofen. Her cognitive status has returned to baseline upon this admission. She continues to have pain in the left neck extending into the shoulder and left upper extremity to the level of the hand. Orthospine was consulted who suggested consideration of repeat epidural injection which she has had through pain service most recently in November in which she experienced significant relief of her typical radicular pain. She reports her pain is similar location is characteristic as prior. She does experience some paresthesias in the level of the hand. She denies overt weaknesses or dropping of objects although does feel that her pincer grasp is somewhat diminished. Patient denies right upper extremity radicular pain. She denies any recent falls or injuries. Patient has no further constitutional complaints at this time. Plan of care discussed with Dr. Ronda Avila. Pain Assessment Full Body Front + Back: 1. Left neck, shoulder and scapular pain 2. Left upper extremity radicular pain Pain scale - at its best (0-10): 3 Pain scale - at its worst (0-10): 6 Allergies Allergy/AdvReac Type Severity Reaction Status Date / Time Penicillins Allergy Severe Hives Verified 10/01/20 14:39 Cipro Allergy Intermediate SEVERE RASH Verified 01/24/14 12:55 ciprofloxacin Allergy Intermediate SEVERE RASH Verified 02/26/20 14:39 metronidazole [From Flagyl] Allergy Intermediate rash Verified 02/26/20 15:43 adhesive Allergy Mild Rash Verified 02/26/20 14:39 ondansetron [From Zofran] Allergy Mild Rash Verified 02/26/20 14:39 codeine Allergy Unknown n/v Verified 02/26/20 14:39 pinpoint pupils infliximab Allergy Unknown Unknown Verified 02/26/20 14:39 Quinolones Allergy Unknown Unknown Verified 02/26/20 14:39 tramadol Allergy Unknown bradycardia Verified 02/26/20 14:39 vancomycin Allergy Unknown Maris Verified 02/26/20 14:39 syndrome NONSTEROIDAL Allergy Unknown NAPROXEN Uncoded 02/26/20 14:39 Home Medications Home Medications Medication Instructions Recorded Confirmed Type aspirin 81 mg tablet,delayed 81 mg PO DAILY 04/19/19 02/26/20 History release omeprazole magnesium 20 mg 20 mg PO QAM 04/19/19 02/26/20 History tablet,delayed release potassium chloride 10 mEq 10 meq PO 3XWK PRN 04/19/19 02/26/20 History capsule,extended release furosemide [Lasix] 20 mg PO 3XWK 05/08/19 02/26/20 History prednisone 5 mg PO DAILY 05/08/19 02/26/20 History rosuvastatin 5 mg PO DAILY 05/08/19 02/26/20 History Turmeric Curcumin 1,000 mg PO BID 02/26/20 02/26/20 History acetaminophen [Tylenol] 650 mg PO BID 02/26/20 02/26/20 History ascorbic acid (vitamin C) [Vitamin 1 g PO DAILY 02/26/20 02/26/20 History C] baclofen 10 mg PO BID PRN 02/26/20 02/26/20 History clobetasol [Temovate] 1 applic TOPICAL BID 02/26/20 02/26/20 History mupirocin [Bactroban] 1 applic TOPICAL BID 02/26/20 02/26/20 History vitamin B complex 1 tab PO DAILY 02/26/20 02/26/20 History Pain History Pain Intensity Pain scale - at its best (0-10): 3 Pain scale - at its worst (0-10): 6 Patient History Medical History (Updated 02/28/20 @ 00:35 by Yousuf Barraza MD) Cervical pain Cervical radiculopathy Clostridium difficile infection Dyslipidemia GERD (gastroesophageal reflux disease) Herpes zoster Kidney stones Left knee DJD Missed Osteoarthritis Parastomal hernia with obstruction and without gangrene S/p repair Polymyalgia rheumatica SBO (small bowel obstruction) Ulcerative colitis Surgical History H/O ileostomy H/O oral surgery H/O ventral hernia repair History of colectomy S/P appendectomy S/P colonoscopy S/P dilation and curettage S/P repair of ventral hernia parastomal with placement of biologic mesh S/P tonsillectomy and adenoidectomy S/P tubal ligation Family History Grandmother (Paternal) Breast cancer Grandmother (Maternal) Colorectal cancer Father Rheumatic heart disease Mother Thyroid cancer Social History (Updated 02/26/20 @ 17:07 by Syeda Mendoza PA-C) Smoking Status: Former smoker Cigarettes Per Day: 0.5; Second Hand Exposure: No; Hx Alcohol Use: Yes Alcohol type: wine and hard liquor Alcohol Intake Frequency Comment: Per epic: "Social" Hx Substance Use: No Preferred Language: [place]ill[place] Communication Ability: Effective 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 Speech and thought process appropriate. Mood and affect appropriate. Cognition intact. Head: Normocephalic and atraumatic. Neck: Supple without adenopathy. Positive Spurling's maneuver on the left. Patient tender in the left paravertebral, proximal mid trapezius musculature to palpation. Minimal spasm. No definable myoneural trigger points. Slightly diminished range of motion due to increased pain in the left lateral rotation and ear to shoulder maneuvering when compared to the right. Upper extremity: Strength testing 5/5 with handgrip and 4+/5 with opposition on the left compared to 5/5 on the right. Sensation intact without deficit. Bree sign negative bilaterally. Chest: Nontender to palpation of the costosternal junction. Lower extremities: Strength 5/5 with dorsi and plantar flexion. Sensation intact. No edema. Neurologic: Cranial nerves grossly intact. Ambulatory function not witnessed. Results (Pain Clinic) Diagnostic Review MRI: non enhanced and reports reviewed MRI Findings: [place] [phone] Magnetic Resonance Report Patient: DEMIAN CALVERT Date: 02/26/20 MR#: [id number]: [facility] Acct ID:[id number]: Date: [address] [place] [address] Zip: [place] [address] Age: 74Location: 2N Sex: FRoom[facility]Bed[facility] Att Phy: Yousuf Barraza, MDDiagnosis: ENCEPHALOPATHY Vee Phy: Derrick Ruiz, DOService Date: 02/28/20 Fam Phy:Interpreting Phy: Dillon Saldivar MD Admit Phy: Jabier Diehl MD Ordering Phy: Kota Mcfarland D.O. cc: ~ CERVICAL SPINE MRI HISTORY: left arm pain TECHNIQUE: Multiplanar multisequence MRI of the cervical spine was performed without the use of contrast. COMPARISON STUDY: Neck CTA 02/26/2020. FINDINGS: There is mild reversal the normal daughter curvature. There is 1 mm of anterolisthesis of C4 on C5 and C3 on C4. Mild disc space narrowing at C4-C5. Severe disc space narrowing at C5-C6 and C6-C7. The visualized posterior fossa is unremarkable. The cervical spinal cord demonstrates a normal signal intensity. No fractures within the cervical spine. Prevertebral soft tissues and the C1-C2 interval are intact. C2-C3: Small focal central disc protrusion without significant central canal are right-sided neural foraminal narrowing. There is moderate left-sided neural foraminal narrowing. C3-C4: No significant central canal narrowing. There is mild left and moderate right neural foraminal narrowing. C4-C5: Small focal central disc protrusion which abuts and slightly deforms the anterior cord consistent with mild central canal narrowing. There is also mild to moderate right-sided neural foraminal narrowing. C5-C6: Broad-based posterior disc bulge with a left paracentral focal disc protrusion which abuts and slightly deforms anterior cord resulting in moderate central canal narrowing. There is moderate to severe bilateral neural foraminal narrowing due to the uncovertebral hypertrophy. C6-C7: Broad-based posterior disc osteophyte complex resulting in mild central canal narrowing. There is moderate to severe bilateral neural foraminal narrowing. C7-T1: Broad-based posterior disc osteophyte complex asymmetric to the left with a left paracentral/foraminal focal disc protrusion. This appears to compress the exiting left nerve root at this level and results in mild central canal narrowing. There is mild right and severe left neural foraminal narrowing. IMPRESSION: 1. No fractures within the cervical spine. 2. Mild reversal of the normal lordotic curvature. 3. Multilevel cervical spondylosis as described above most pronounced at the C5- C6 and C7-T1 levels. ACT 112: Negative or not required by law. Electronically signed by: Dillon Saldivar M.D. 02/28/2020 1:31 PM Dictated: 02/28/20 1326 Transcribed: 02/28/20 1326
--- NOTE | 2020-03-02 11:28 | Hospitalist Progress Note ---
Date of Service March 02, 2020 Assessment & Plan (1) Acute encephalopathy: Presented with acute altered mental status. Had recently started baclofen for severe upper back / shoulder pain. Neuroimaging by CT and MR did not show any acute event. LP performed. CSF protein 57, glucose 54, 0 WBC's, 54 RBC's. CSF culture negative so far. Neurology consulted. Possible hypertensive encephalopathy (although pt feels this is unlikely). Probable metabolic encephalopathy secondary to baclofen. Neurocognitive status back to baseline. (2) Leukocytosis: WBC 16,620 at time of admission. Lactate elevated, improved. Procalcitonin < 0.05. Chest x-ray did not show any acute changes. UA essentially negative. LP results did not suggest meningitis. Blood cultures obtained. Started empirically on ceftriaxone, doxy, acyclovir. Cultures negative. No apparent infection identified at this time. Antibiotics discontinued. (3) Hypertensive emergency: Initial BP in ED 195/129. History of intermittent elevations of blood pressures, but not treated for hypertension. Received IV hydralazine in ED. Blood pressure improved. Hypertensive emergency with possible hypertensive encephalopathy. Blood pressures fluctuated during hospital stay. Follow blood pressures and treat as necessary. BP morning of discharge was 160/92. Patient will check BP at home and share readings with PCP to determine if antihypertensive therapy is warranted. (4) Cervical radiculopathy: Severe left upper back / shoulder pain. Suspected cervical radiculopathy. Has been seen by Pain Management. S/P epidural with good results, but then pain recurred. Recently prescribed baclofen may have contributed to confusion. Patient requested Ortho Spine consult. MRI cervical spine: IMPRESSION: 1. No fractures within the cervical spine. 2. Mild reversal of the normal lordotic curvature. 3. Multilevel cervical spondylosis as described above most pronounced at the C5-C6 and C7-T1 levels. Electronically signed by: Dillon Saldivar M.D. 02/28/2020 1:31 PM Trial of repeat epidural recommended. If that is not effective, surgical intervention could be considered. (5) Polymyalgia rheumatica: Continue prednisone 5 mg daily. (6) DVT prophylaxis: SQ enoxaparin. (7) Discharge planning issues: Discharge to home. Internal Medicine follow-up with Dr. Ruiz. Follow-up with [facility] Pain Management. Ortho Spine follow-up with Dr. Mcafrland as necessary. Admission and Anticipated Discharge Date Admission Date: February 26, 2020 Subjective Recheck for altered mental status and other problems. Patient seen in their room around 1110. Confusion and hallucinations resolved. Ongoing pain radiating down her LUE, but not as severe. Prefers not to use narcotic analgesics at home. Review of Systems: Constitutional- no fever. Cardiac- no chest pain. Pulmonary- no cough or SOB. GI- no nausea, vomiting Otherwise, as noted above. Physical Exam Constitutional: no acute distress Respiratory: no respiratory distress Auscultation: lungs clear to auscultation bilaterally Cardiovascular: Rate/Rhythm: regular rate and regular rhythm Vessels: no JVD Extremities: no calf tenderness and no edema Gastrointestinal (Abdomen): normal bowel sounds, soft, nontender, no hepatosplenomegaly Musculoskeletal: Extremities: no cyanosis Skin: no rashes, warm and dry Psychiatric: Orientation: alert and oriented x 3 Results & Data Results & Data ([facility]) Vital Signs (Past 12 Hours) Vital Signs Temp Pulse Resp BP Pulse Ox 03/02/20 08:00 36.2 C L 70 16 160/92 H 94
--- NOTE | 2020-03-02 11:43 | Discharge Summary ---
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 Patient's granddaughter is at bedside. She has significant past medical history of ulcerative colitis status post subtotal colectomy with end ileostomy, PMR on chronic prednisone therapy, osteoporosis, chronic pain secondary to polyarthropathy, history of DVT, and history of zoster. History is limited from patient secondary to pain and confusion. She lives at home by herself and granddaughter at bedside states that, "she is totally off and she is much more confused." "She has never been like this before." Granddaughter states she tried to reach patient earlier today and was unsuccessful which was unusual for her. She spoke with her brother who was also unable to reach her. Finally when she did reach her patient did not know who she was talking to and appeared confused. She complains of severe frontal headache and granddaughter feels that she also complained of change in vision and change in hearing. Her last known time well was 3:30 PM yesterday. Family at bedside denied known tick bites or narcotic use. Of significance approximately 1 week ago she did have for trigger point injections in the left rhomboid by [facility] pain clinic. Pt states she has a ileostomy and is still making stool. ROS unobtainable. Granddaughter denies history of diabetes or hypertension. Hx obtained mostly from granddaughter and outpt records with [facility]. In ED patient was significantly hypertensive in the criteria for hypertensive urgency. Stroke alert was initiated. 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 Lab work notable for leukocytosis 16k, H&H stable at 14.2 and 42.2, BUN 24, creatinine 1.88, glucose 97, mag 1.9, urinalysis negative. Because of leukocytosis and complaint of headache ER provider concern for possible meningitis. Spinal tap was performed which was generally unrevealing except mild elevated protein. She was covered with broad-spectrum IV antibiotics including ceftriaxone, IV acyclovir and Bactrim. She also received 10 mg IV dexamethasone. She remained significantly hypertensive so we ordered 5 mg of IV hydralazine. Principal Diagnosis encephalopathy, most likely due to medication (baclofen) OTHER ACUTE / NEW DIAGNOSES: hypertensive emergency Discharge Data Allergies Allergy/AdvReac Type Severity Reaction Status Date / Time Penicillins Allergy Severe Hives Verified 02/26/20 14:39 Cipro Allergy Intermediate SEVERE RASH Verified 01/24/14 12:55 ciprofloxacin Allergy Intermediate SEVERE RASH Verified 02/26/20 14:39 metronidazole [From Flagyl] Allergy Intermediate rash Verified 02/26/20 15:43 adhesive Allergy Mild Rash Verified 02/26/20 14:39 ondansetron [From Zofran] Allergy Mild Rash Verified 02/26/20 14:39 codeine Allergy Unknown n/v Verified 02/26/20 14:39 pinpoint pupils infliximab Allergy Unknown Unknown Verified 02/26/20 14:39 Quinolones Allergy Unknown Unknown Verified 02/26/20 14:39 tramadol Allergy Unknown bradycardia Verified 02/26/20 14:39 vancomycin Allergy Unknown Maris Verified 02/26/20 14:39 syndrome baclofen AdvReac Severe confusion, Verified 03/02/20 11:37 hallucinations NONSTEROIDAL Allergy Unknown NAPROXEN Uncoded 02/26/20 14:39 Consultations 02/26/20 16:05 ED Decision to Admit Stat 02/26/20 16:15 ED Decision to Admit Stat 02/26/20 16:42 Consult Neurology Routine 02/26/20 19:14 Consult Case Management - Discharge Planning Routine Consult Case Management - Discharge Planning Routine 02/27/20 11:37 Consult Orthopedic Surgery Routine 03/01/20 15:15 Consult Pain Management Routine Ordered Studies 02/26/20 13:10 CT angio head w con Stat CT angio neck with con Stat CT head/brain wo con Stat 02/26/20 16:42 MR brain wo con Stat 02/28/20 11:00 MR cervical spine wo con Routine Hospital Course (1) Acute encephalopathy: Presented with acute altered mental status. Had recently started baclofen for severe upper back / shoulder pain. Neuroimaging by CT and MR did not show any acute event. LP performed. CSF protein 57, glucose 54, 0 WBC's, 54 RBC's. CSF culture negative so far. Neurology consulted. Possible hypertensive encephalopathy (although pt feels this is unlikely). Probable metabolic encephalopathy secondary to baclofen. Neurocognitive status back to baseline. (2) Leukocytosis: WBC 16,620 at time of admission. Lactate elevated, improved. Procalcitonin < 0.05. Chest x-ray did not show any acute changes. UA essentially negative. LP results did not suggest meningitis. Blood cultures obtained. Started empirically on ceftriaxone, doxy, acyclovir. Cultures negative. No apparent infection identified at this time. Antibiotics discontinued. (3) Hypertensive emergency: Initial BP in ED 195/129. History of intermittent elevations of blood pressures, but not treated for hypertension. Received IV hydralazine in ED. Blood pressure improved. Hypertensive emergency with possible hypertensive encephalopathy. Blood pressures fluctuated during hospital stay, but improved without additional therapy. BP morning of discharge was 160/92. Patient tends to be sensitive to medications and would prefer not to start additional Rx at this time. She will check BP at home and share readings with PCP to determine if antihypertensive therapy is warranted. (4) Cervical radiculopathy: Severe left upper back / shoulder pain. Suspected cervical radiculopathy. Has been seen by Pain Management. S/P epidural with good results, but then pain recurred. Recently prescribed baclofen may have contributed to confusion. Patient requested Ortho Spine consult. MRI cervical spine: IMPRESSION: 1. No fractures within the cervical spine. 2. Mild reversal of the normal lordotic curvature. 3. Multilevel cervical spondylosis as described above most pronounced at the C5-C6 and C7-T1 levels. Electronically signed by: Dillon Saldivar M.D. 02/28/2020 1:31 PM Trial of repeat epidural recommended- scheduled for next week. If that is not effective, surgical intervention could be considered. (5) Polymyalgia rheumatica: Continue prednisone 5 mg daily. (6) DVT prophylaxis: SQ enoxaparin. (7) Discharge planning issues: Discharged to home. Internal Medicine follow-up with Dr. Ruiz. Follow-up with [facility] Pain Management. Ortho Spine follow-up with Dr. Mcfarland as necessary. Total Time Total Time Spent Total Time Spent (In Minutes): 40 Discharge Plan Discharge Items Patient Disposition: Home - Self-Care Reason For Visit: confusion Discharge Diagnosis: confusion, most likely due to baclofen elevated blood pressure, improved left arm pain secondary to cervical spine disease Activity: Resume your previous activity Non-emergency contact: Primary Care Provider, Hospitalist and Pain Management Call non-emergency contact if: you have any medication questions and your symptoms worsen Follow-up/Referrals: Derrick Ruiz DO [Primary Care Provider] - 03/08/20 11:20 am (Date & Time 03/08/2020 11:20 AM Provider Derrick Ruiz DO Department General Internal Medicine [facility] ) Diet: Heart Healthy Addtl Attending Provider Instructions: MEDICATION CHANGES: Stop baclofen. SUMMARY OF TEST RESULTS: CT head- no stroke. 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 MRI brain- no stroke. MRI cervical spine- degenerative arthritic and disc disease, especially C5-6 and C7-T1 levels. Lumbar puncture- no sign of infection. RECOMMENDATIONS FOR FOLLOW-UP: Check your blood pressures at home and share readings with Dr. Ruiz. Ask Dr. Ruiz if you need follow-up for small aneurysm right posterior communicating artery. Pain Management follow-up with Derrick Craig PA-C and Dr. Miles as scheduled. OTHER INSTRUCTIONS: Seek medical attention if you have: * temperature above 101 * chest pain or trouble breathing * abdominal pain, nausea, vomiting * diarrhea, dark stools or bloody stools * any unanswered questions or concerns Call [phone] if symptoms are severe. Please take good care of yourself. Call if you have any questions or problems. You can reach a [facility] hospitalist on duty at [facility] 24 hours a day by calling [phone]. My cell # is [phone]. Pending Studies at Discharge: No Stand-Alone Forms: My [facility], Smoking Cessation Medications and DC Order Prescriptions: Continued aspirin [Adult Low Dose Aspirin] 81 mg tablet,delayed release (DR/EC) 81 mg PO DAILY RF: 0 potassium chloride 10 mEq capsule, extended release 10 meq PO 3XWK PRN (Reason: With Furosemide) RF: 0 Prilosec OTC 20 mg tablet,delayed release (DR/EC) 20 mg PO QAM RF: 0 furosemide [Lasix] 20 mg Tablet 20 mg PO 3XWK RF: 0 prednisone 5 mg Tablet 5 mg PO DAILY RF: 0 rosuvastatin 5 mg Tablet 5 mg PO DAILY RF: 0 ascorbic acid (vitamin C) [Vitamin C] 1,000 mg Tablet 1 g PO DAILY RF: 0 acetaminophen [Tylenol] 325 mg Tablet 650 mg PO BID RF: 0 clobetasol [Temovate] 0.05 % Cream 1 applic TOPICAL BID RF: 0 vitamin B complex Tablet 1 tab PO DAILY RF: 0 mupirocin [Bactroban] 2 % Ointment 1 applic TOPICAL BID RF: 0 Turmeric Curcumin 1,000 mg PO BID RF: 0 Discontinued baclofen 10 mg tablet 10 mg PO BID PRN (Reason: muscle spasms) RF: 0 Discharge Orders: Discharge Order (Routine); Ordered 03/02/20 Ordered By: Yousuf Barraza Admission Data Admit Date/Time: 02/26/20 16:42 Attending Provider: Yousuf Barraza Admit Provider: Jabier Diehl Primary Care Provider: Derrick Ruiz Other Providers: Jabier Diehl ; Yasemin Briseno at [place] ; Yousuf Clement ; Kota Mcfarland ; Tariq Miles
== END 2020-03-02 15:19 | disposition home or self-care (01) | DRG 304 ==
LOC: ED 12:32 → SUATTDRO 16:42 → 2E 16:42 → 2N 02-28 13:00 → 3N 03-01 02:03

== ENCOUNTER 2020-04-09 06:07 | Inpatient (IN) ==
--- NOTE | 2020-03-30 10:20 | Anesthesiology Consultation ---
Date of Service March 30, 2020 Assessment & Plan (1) Encounter for pre-operative examination: - Per assessment on 03/19: Travel screen negative. No known COVID-19 positive contacts or current COVID-19 related symptoms. Surgeon arranging preop COVID t esting (scheduled 04/02; [facility]). Awaiting results. - [facility] Admission: 02/25-03/02/20: c/o headache x12 hours, confusion and elevated blood pressure. Per discharge summary, met criteria for hypertensive urgency. +leukocytosis (broad spectrum abx, unremarkable spinal tap. Dx encephalopathy, most likely d/t medication (baclofen) vs hypertensive encephalopathy. Neurocog nitive status back to baseline at time of discharge. BP improved during hospital stay without additional therapy- at PCP discretion if BP med adjustments to be made after discharge. - Cardiology office visit: 03/29/20: "Seen for management of hypertension and evaluation prior to upcoming cervical spine surgery. Currently no cardiac symptoms and no prior history of angina, myocardial infarction, congestive heart failure, valvular heart disease or arrhythmia. Left ventricular systolic function is normal and exercise capacity is above 5 Mets.. EKG chronically abnormal reflecting hypertensive changes and no prior infarct.. Operative risk elevated due to underlying morbidities but not prohibitive cardiac status stable.. Hypertension labile likely being driven by chronic pain. Will add amlodipine 5 mg p.o. q.day to be taken a.m. of procedure, (losartan to be held).. Surgical plans as indicated.. Patient warrants medical follow-up perioperatively given chronic corticosteroid use, hypertension and underlying risk factor. Selena at Surgeon's office made aware of cardiology perioperative recommendations. - Chronic prednisone 5mg daily (for PMR per [facility] records)* Chart Review Chart Review: Acceptable Risk for Surgery (pending evaluation AM DOS) and Areli ent NOT seen in Pre Admission Testing History Surgery Operation Date: 04/09/20 12:55 Proposed Procedures p C5-C7 Anterior Cervical Discectomy and Fusion, Possible C7-T1, Spinal Cord Monitoring - Kota Mcfarland DO Height/Weight Height: 4 ft 11.5 in Weight: 64.41 kg Allergies Allergy/AdvReac Type Severity Reaction Status Date / Time Penicillins Allergy Severe Hives Verified 03/19/20 15:06 Cipro Allergy Intermediate SEVERE RASH Verified 01/24/14 12:55 ciprofloxacin Allergy Intermediate Rash Verified 03/30/20 10:08 metronidazole [From Flagyl] Allergy Intermediate Rash Verified 03/30/20 10:08 adhesive Allergy Mild Rash Verified 03/19/20 15:06 ondansetron [From Zofran] Allergy Mild Rash Verified 03/19/20 15:06 codeine Allergy Unknown N/V, Verified 03/30/20 10:08 pinpoint pupils infliximab Allergy Unknown Swelling Verified 03/19/20 15:07 of Lip/Tongue/Throat Quinolones Allergy Unknown Unknown Verified 03/19/20 15:06 vancomycin Allergy Unknown Maris Verified 03/19/20 15:06 syndrome baclofen AdvReac Severe Confusion, Verified 03/30/20 10:08 hallucinations tramadol AdvReac Unknown Bradycardia Verified 03/30/20 10:08 NONSTEROIDAL Allergy Unknown Naproxen- Uncoded 03/30/20 10:08 no further details Medications Home Medications Medication Instructions Recorded Confirmed Last Taken aspirin 81 mg tablet,delayed 81 mg PO QAM 04/19/19 03/19/20 06/12/19 release omeprazole magnesium 20 mg 20 mg PO QAM 04/19/19 03/19/20 06/11/19 tablet,delayed release potassium chloride 10 mEq 10 meq PO 3XWK PRN 04/19/19 03/19/20 Unknown capsule,extended release furosemide [Lasix] 20 mg PO 3XWK 05/08/19 03/19/20 Unknown prednisone 5 mg PO QAM 05/08/19 03/19/20 06/11/19 rosuvastatin 5 mg PO QAM 05/08/19 03/19/20 06/11/19 Turmeric Curcumin 1,000 mg PO BID 02/26/20 03/19/20 Unknown acetaminophen [Tylenol] 650 mg PO BID 02/26/20 03/19/20 Unknown ascorbic acid (vitamin C) [Vitamin 1 g PO QAM 02/26/20 03/19/20 Unknown C] mupirocin 1 applic TOPICAL BID PRN 02/26/20 03/19/20 Unknown vitamin B complex 1 tab PO QAM 02/26/20 03/19/20 Unknown fluocinolone 1 applic TOPICAL BID PRN 03/19/20 03/19/20 Unknown losartan 25 mg PO QAM 03/19/20 03/19/20 Unknown Past Medical History Medical History Cerebral aneurysm incidental right [employer] 3mm aneurysm per 02/2020 imaging- under surveillance Cervical pain Cervical radiculopathy Degenerative disc disease Dyslipidemia GERD (gastroesophageal reflux disease) Hearing deficit History of DVT (deep vein thrombosis) 2005 (RLE)- treated with AC + placement GFF (has since been removed) History of nephrolithiasis HTN (hypertension) Ileostomy in place Osteoarthritis Osteoporosis Polymyalgia rheumatica TMJ (temporomandibular joint disorder) Ulcerative colitis Venous insufficiency Past Family History Family History Grandmother (Paternal) Breast cancer Grandmother (Maternal) Colorectal cancer Father Rheumatic heart disease Mother Thyroid cancer Other No family history of adverse response to anesthesia Past Surgical History Surgical History H/O oral surgery History of colectomy History of surgery GFF placement and removal S/P appendectomy S/P colonoscopy S/P dilation and curettage S/P repair of ventral hernia parastomal with placement of biologic mesh S/P tonsillectomy and adenoidectomy S/P tubal ligation Slow to wake up after anesthesia STOP BANG Total 3 Social History Smoking Status: Former smoker tobacco type: cigarettes Do You Dip or Chew Tobacco: No Smoking End Date: 2002 Hx Alcohol Use: Yes Alcohol type: wine and hard liquor alcohol intake frequency: holidays/special occasions only Hx Substance Use: No substance use type: does not use Testing Laboratory Results 02/29/20 WBC 8.35 H/H 12.4/37.7 PLATELETS 255 SODIUM 141 POTASSIUM 3.9 CHLORIDE 110 CO2 27 BUN 16 CREATININE 0.64 GLUCOSE 86 03/10/20 PT 10.2 INR 1.0 02/27/20 hgba1c 5.9% 02/26/20 TSH 1.180 PTT <20 (comparison PTT per chart review low-normal at 20.7 on 06/14/[address] Gr, nothing further needed from his perspective. At anesthesiologist discretion AM DOS if recheck needed from their perspective. Rest of coags done 03/10/20 were WNL) Electrocardiogram Date: 02/26/20 NSR at 79bpm. LAD. Low voltage QRS. Possible anterolateral infarct (cited on/before 05/08/2019 per paper pattern folder review; subsequent echo 03/26/20). Chest X-Ray Date: 02/26/20 FINDINGS: Stable blunting of the left lateral costophrenic sulcus. This is likely chronic. Otherwise, lungs are clear. No pleural effusions. No pneumothorax. The cardiac silhouette remains mildly enlarged. IMPRESSION: No significant change compared to the prior study. No acute process. Echocardiogram Date: 03/26/20 LVEF 60 to 64%. No regional wall motion abnormality. Prominent anterolateral papillary muscle (normal anatomical variant). No evidence of pulmonary hypertension. No significant valvular disease. Other Testing Head CT: 02/26/20: No acute intracranial abnormality. Head CTA: 02/26/20: There is no hemorrhage, mass effect, or evidence of acute territorial ischemia by CT criteria noting angiographic phase technique. There is a 3 mm aneurysm identified arising from the origin of the right posterior communicating artery. Otherwise unremarkable CT angiogram of the brain. Neck CTA: 02/26/20: Unremarkable CTA of the neck. No significant stenosis. No dissection. Mild atherosclerotic plaque. Cervical MRI: 02/26/20: No fractures within the cervical spine. Mild reversal of the normal lordotic curvature. Multilevel cervical spondylosis as described above most pronounced at the C5-C6 and C7-T1 levels. Brain MRI: 02/26/20: FINDINGS: Motion artifact. There is no mass, hematoma, midline shift, or acute infarct. The paranasal sinuses are clear. The ventricles and sulci demonstrate mild age-related involutional changes. Scattered foci of T2 hyperintensity seen within the periventricular and subcortical white matter are nonspecific but suggestive of mild microvascular ischemic changes. The major vascular flow voids at the skull base are well-maintained. Trace left mastoid effusion. IMPRESSION: Mild motion artifact. No definite acute intracranial abnormality.
[~2020-04-09 06:07] MED LIST: ACETAMINOPHEN 500 MG TAB PO SCH; CeleBREX 200 MG CAP PO SCH; GABAPENTIN 300 MG CAP PO SCH; LR 15ML/HR IV SCH; ceFAZolin 1000MG 1,000 MG/7.5 ML SYR IV SCH
[2020-04-09] MEDS ORDERED: fentaNYL citrate 100 MCG/2 ML VIAL ONE (06:27)
[2020-04-09] MEDS ORDERED: GLYCOPYRROLATE 0.2 MG/ML VIAL ONE ×2 (06:27→07:55)
[2020-04-09] MEDS ORDERED: LIDOCAINE HCL 2% 2 ML VIAL/AMP(20MG/ML) INFIL ONE (06:27)
[2020-04-09] MEDS ORDERED: PROPOFOL IV EMULSION 10 MG/ML 20 ML VIAL IV ONE (06:27)
[2020-04-09] MEDS ORDERED: ONDANSETRON INJ 2 MG/ML 2 ML VIAL ONE (06:27)
[2020-04-09] MEDS ORDERED: DEXAMETHASONE SOD INJ 4 MG/ML VIAL ONE ×3 (06:27→06:28)
[2020-04-09] MEDS ORDERED: MIDAZOLAM HCL 1 MG/ML 2ML VIAL ONE (06:27)
[2020-04-09] MEDS ORDERED: ROCURONIUM BROMIDE 10 MG/ML 5 ML VIAL IV ONE (06:27)
[2020-04-09] MEDS ORDERED: NEOSTIGMINE METHYLSULFATE 1 MG/ML 10ML VIAL ONE (06:27)
[2020-04-09] MEDS ORDERED: HYDROmorphone INJ 2 MG/ML SYR/VIAL ONE (06:32)
[2020-04-09] MEDS ORDERED: BACITRACIN INJ 50,000 UNIT VIAL ONE (07:16)
--- NOTE | 2020-04-09 07:27 | History & Physical Bridge Note ---
Date of Service April 09, 2020 History & Physical Bridge Note I have examined the patient, reviewed the History & Physical and in the interval since the performance of the History & Physical I have noted the following changes of clinical significance: no changes noted
--- NOTE | 2020-04-09 07:28 | History & Physical Report ---
Date of Service April 09, 2020 Assessment & Plan (1) Cervical radiculopathy: Admission and Anticipated Discharge Date Admission Date: C5-C7 anterior cervical discectomy and fusion, possible C7-T1 History of Present Illness Chief Complaint: Neck and arm pain Primary Care Provider: Derrick Ruiz DO This is a 74-year-old female presents with chronic persistent neck and arm pain after failing course of nonoperative care is here for surgical invention. Allergies Allergy/AdvReac Type Severity Reaction Status Date / Time Penicillins Allergy Severe Hives Verified 04/09/20 06:55 Cipro Allergy Intermediate SEVERE RASH Verified 01/24/14 12:55 ciprofloxacin Allergy Intermediate Rash Verified 04/09/20 06:55 metronidazole [From Flagyl] Allergy Intermediate Rash Verified 04/09/20 06:55 adhesive Allergy Mild Rash Verified 04/09/20 06:55 ondansetron [From Zofran] Allergy Mild Rash Verified 04/09/20 06:55 codeine Allergy Unknown N/V, Verified 04/09/20 06:55 pinpoint pupils infliximab Allergy Unknown Swelling Verified 04/09/20 06:55 of Lip/Tongue/Throat Quinolones Allergy Unknown Unknown Verified 04/09/20 06:55 vancomycin Allergy Unknown Maris Verified 04/09/20 06:55 syndrome baclofen AdvReac Severe Confusion, Verified 04/09/20 06:55 hallucinations tramadol AdvReac Unknown Bradycardia Verified 04/09/20 06:55 NONSTEROIDAL Allergy Unknown Naproxen- Uncoded 04/09/20 06:55 no further details Home Medications Home Medications Medication Instructions Recorded Confirmed Type aspirin 81 mg tablet,delayed 81 mg PO QAM 04/19/19 04/09/20 History release omeprazole magnesium 20 mg 20 mg PO QAM 04/19/19 04/09/20 History tablet,delayed release potassium chloride 10 mEq 10 meq PO 3XWK PRN 04/19/19 04/09/20 History capsule,extended release furosemide [Lasix] 20 mg PO 3XWK 05/08/19 04/09/20 History prednisone 5 mg PO QAM 05/08/19 04/09/20 History rosuvastatin 5 mg PO QAM 05/08/19 04/09/20 History Turmeric Curcumin 1,000 mg PO BID 02/26/20 04/09/20 History acetaminophen [Tylenol] 650 mg PO BID 02/26/20 04/09/20 History ascorbic acid (vitamin C) [Vitamin 1 g PO QAM 02/26/20 04/09/20 History C] mupirocin 1 applic TOPICAL BID PRN 02/26/20 04/09/20 History vitamin B complex 1 tab PO QAM 02/26/20 04/09/20 History fluocinolone 1 applic TOPICAL BID PRN 03/19/20 04/09/20 History losartan 25 mg PO QAM 03/19/20 04/09/20 History amlodipine [Norvasc] 5 mg PO QAM 04/01/20 04/09/20 History Past Med/Surg History Medical History Cerebral aneurysm incidental right [employer] 3mm aneurysm per 02/2020 imaging- under surveillance Cervical pain Cervical radiculopathy Degenerative disc disease Dyslipidemia GERD (gastroesophageal reflux disease) Hearing deficit History of DVT (deep vein thrombosis) 2005 (RLE)- treated with AC + placement GFF (has since been removed) History of nephrolithiasis HTN (hypertension) Ileostomy in place Osteoarthritis Osteoporosis Polymyalgia rheumatica TMJ (temporomandibular joint disorder) Ulcerative colitis Venous insufficiency Surgical History H/O oral surgery History of colectomy History of surgery GFF placement and removal S/P appendectomy S/P colonoscopy S/P dilation and curettage S/P repair of ventral hernia parastomal with placement of biologic mesh S/P tonsillectomy and adenoidectomy S/P tubal ligation Slow to wake up after anesthesia Family History Grandmother (Paternal) Breast cancer Grandmother (Maternal) Colorectal cancer Father Rheumatic heart disease Mother Thyroid cancer Other No family history of adverse response to anesthesia Social History (Updated 02/26/20 @ 17:07 by Syeda Mendoza PA-C) Smoking Status: Former smoker Years Smoked: 25; Smoking End Date: 2002; Second Hand Exposure: No; Do You Dip or Chew Tobacco: No; Tobacco Cessation Education Requested by Patient: No Hx Alcohol Use: Yes Alcohol type: wine and hard liquor Alcohol Intake Frequency Comment: Per epic: "Social" Hx Substance Use: No Preferred Language: Slovak Communication Ability: Effective Sander Operator Required: No Beliefs That Will Affect Care: None marital status: / Current Living Situation: Alone current occupational status: retired Feels Safe at Home: Yes Safety Concerns: Feels Safe At This Time Assistive Devices: Glasses Physical Exam Physical Exam: Patient is is alert and oriented Heart regular in rhythm Lungs clear to auscultation Results & Data ([facility]) Vital Signs (Past 12 Hours) Vital Signs Temp Pulse Resp BP Pulse Ox 04/09/20 07:02 36.6 C 59 L 16 149/73 H 96
[2020-04-09] MEDS ORDERED: ePHEDrine sulfate 50 MG/ML SYR ONE (08:48)
[2020-04-09] MEDS ORDERED: PHENYLEPHRINE 100MCG/ML 5ML SYR ONE (08:48)
[2020-04-09] MEDS ORDERED: FLOSEAL HEMOSTATIC MATRIX 10ML TOP ONE (09:43)
--- NOTE | 2020-04-09 09:48 | Operative Report ---
Post Operative Report Pre & Post Diagnosis Operation Date: 04/09/20 07:45 Pre-Op Diagnosis: Spinal Stenosis, Cervical Region Post-Op Diagnosis: Spinal Stenosis, Cervical Region I identified the patient and participated in the time-out.: Yes Procedure Operation Date: 04/09/20 07:45 Actual Procedures #1 anterior cervical discectomy with bilateral foraminotomies C5-6, C6-7 and C7- T1. #2 anterior cervical arthrodesis C5-6, C6-7 and C7-T1. #3 placement of Spira cage filled with DBM 6 mm in height at C5-6, 5 mm in height at C6-C7, and 7 mm in height at C7-T1. #4 application of 5 complete and screws from C5-T1. Surgeon Kota Mcfarland, DO Smalltalk Developer Nura Gomes Estimated Blood Loss 10 Findings Consistent with Post-Op Diagnosis Specimens None Indications This is a 74-year-old female who presents with above-mentioned diagnosis after failing course of nonoperative care is here for the above-mentioned procedure. Description of Procedure Patient was met with identified informed consent obtained. Patient was then taken to the operative suite underwent an patient placed in supine position Rene table with head Powell head of advertising. All bony prominences well-padded eyes inspected to ensure no external pressure placed upon up at this point the anterior cervical spine was prepped and draped in normal sterile fashion. The assistance of fluoroscopy identified the C5-6 C7 disc base and a transverse incision was placed along the right anterior aspect of the cervical spinal lines region. Sharp dissection with the assistance of bipolar electrocautery was performed down to and exposing the anterior cervical spine from C5-T1. Self- retaining retractors placed. Then performed a complete discectomy of C5-C6 out to the uncovertebral joints bilaterally. Labadie distracting pins were utilized. Removed all posterior annular fibers longitudinal ligament bilateral foraminotomies performed. Endplates were then burred to subcortical being bone and a 6 mm spiral cage filled with DBM tapped in position. Then proceeded to C6-C7. Again complete discectomy performed out to the uncovertebral's bilaterally. Removed all posterior annular fibers longitudinal ligament bilateral foraminotomies performed. A 5 mm Spira cage filled with DBM was then tapped into position. Lastly I approached C7-T1. Again complete discectomy performed out to the uncovertebral joints bilaterally. Labadie distractor pins utilized. Removed all posterior annular fibers longitude ligament bilateral foraminotomies performed to address all stenosis. The endplates were then burred to subcortical being bone and a 7 mm Spira cage filled with DBM tapped in position. All distracting apparatus was removed all anterior osteophytes burred to a smooth cortical surface and a smith plate and screws applied with the assistance of fluoroscopy. The incision was then copiously irrigated explored to ensure no damage to surrounding structures remaining bleeding. 10 round AURELIANO drain inserted. The incision was then closed with 2 Vicryl in a fashion of 4 Monocryl for final skin closure. Steri-Strip sterile dressings placed. Patient will continue to PACU stable condition. Please note spinal cord monitoring was utilized that the procedure no changes noted. Lastly Nura Gomes was present at the entire surgeon involved the patient positioning complex portions of the surgery and final skin closure. I attest to the content of the Intraoperative Record and any orders documented therein. Any exceptions are noted below.
[2020-04-09] MEDS ORDERED: ATROPINE SULFATE 0.1 MG/ML 10ML SYR IV PRN (11:13)
[2020-04-09] MEDS ORDERED: fentaNYL citrate 100 MCG/2 ML VIAL IV PRN (11:13)
[2020-04-09] MEDS ORDERED: ePHEDrine sulfate 50 MG/ML AMP IV PRN (11:13)
--- NOTE | 2020-04-09 11:15 | Anesthesiology Progress Note ---
Date of Service April 09, 2020 Anesthesia Post Procedure Vital Signs Vital Signs: Temp Pulse Resp BP BP Pulse Ox 04/09/20 11:10 51 L 15 121/70 96 04/09/20 11:00 53 L 15 133/62 95 04/09/20 10:50 97.5 F L 55 L 15 132/63 96 04/09/20 10:40 55 L 15 129/67 96 04/09/20 10:30 59 L 15 132/72 95 04/09/20 10:20 79 14 135/80 96 04/09/20 10:10 69 14 134/77 97 04/09/20 10:03 97.2 F L 87 13 136/90 98 04/09/20 07:02 97.9 F 59 L 16 149/73 H 96 Pain Intensity Left Arm: Pain Intensity: 4 Transfer of Care Handoff Completed per policy Notes Mental Status: alert / awake / arousable and participated in evaluation Patient Amnestic to Procedure: Yes Nausea / Vomiting: adequately controlled Pain: adequately controlled Airway Patency, RR, SpO2: stable & adequate BP & HR: stable & adequate Hydration State: stable & adequate Anesthetic Complications: no major complications apparent and Pt Satisfied with anesthetic care
[2020-04-09] MEDS ORDERED: ACETAMINOPHEN 500 MG TAB PO PRN (11:29)
[2020-04-09] MEDS ORDERED: ONDANSETRON 4 MG OD TAB PO PRN (11:29)
[2020-04-09] MEDS ORDERED: ONDANSETRON INJ 2 MG/ML 2 ML VIAL IV PRN (11:29)
[2020-04-09] MEDS ORDERED: MAGNESIUM HYDROXIDE SUSP 30 ML UDC PO PRN (11:29)
[2020-04-09] MEDS ORDERED: DO NOT ADMINISTER FLU VACCINE PRN (11:29)
[2020-04-09] MEDS ORDERED: diphenhydrAMINE Capsule 25 MG CAP PO PRN (11:29)
[2020-04-09] MEDS ORDERED: PROMETHAZINE HCL 12.5 MG in SODIUM CHLORIDE 0.9% 50 ML IV PRN (11:29)
[2020-04-09] MEDS ORDERED: HYDROmorphone INJ 1 MG/ML SYRINGE IV PRN (11:29)
[2020-04-09] MEDS ORDERED: DEXAMETHASONE SOD PHOSPHATE 8 MG in SYRINGE 0 ML IV PRN (11:29)
[2020-04-09] MEDS ORDERED: HYDROmorphone INJ 0.5 MG/0.5 ML SYR IV PRN (11:29)
[2020-04-09] MEDS ORDERED: hydrOXYzine HCl 25 MG TAB PO PRN (11:29)
[2020-04-09] MEDS ORDERED: FAMOTIDINE 20 MG TAB PO PRN (11:29)
[2020-04-09] MEDS ORDERED: ALUMINUM/MAGNESIUM SUSP 30 ML UDC PO PRN (11:29)
[2020-04-09] MEDS ORDERED: DO NOT ADMINISTER PNEUMOCOCCAL VACCINE PRN (11:29)
[2020-04-09] MEDS ORDERED: LORazepam 0.5 MG/1 ML VIAL IV PRN (11:29)
[2020-04-09] MEDS ORDERED: METOCLOPRAMIDE HCL INJ 5 MG/ML 2 ML VIAL IV PRN (11:29)
[2020-04-09] MEDS ORDERED: FUROSEMIDE 20 MG TAB PO SCH (11:29)
[2020-04-09] MEDS ORDERED: LORazepam 0.5 MG TAB PO PRN (11:29)
[2020-04-09] MEDS ORDERED: RACEPINEPHRINE 2.25% NEBU SOLN 0.5 ML VIAL INH PRN (11:29)
[2020-04-09] MEDS ORDERED: NALOXONE HCL 0.4 MG/1 ML VIAL/CARP IV PRN (11:29)
[2020-04-09] MEDS ORDERED: SOD PHOSPHATE/SOD BIPHOSPHATE ENEMA 132 ML BTL PR PRN (11:29)
[2020-04-09] MEDS: LACTATED RINGER'S 1,000 ML IV SCH ×2 (11:50→18:06)
--- NOTE | 2020-04-09 12:26 | Hospitalist Consultation ---
Date of Consultation April 09, 2020 Assessment & Plan (1) Cervical radiculopathy: - POD#0 C5-C7, C7-T1 ACDF by Dr. Mcfarland - activity and wound care orders as per ortho - pain control with bowel regimen - PT/OT - monitor H/H for acute blood loss anemia and transfuse blood products PRN - EBL 10 cc (2) HTN (hypertension): -BP controlled, continue amlodipine, losartan -Continue Lasix 3 x week for chronic lower extremity edema (3) Polymyalgia rheumatica: -On chronic prednisone 5 mg daily, continue (4) Ulcerative colitis: -S/p ileostomy -No acute issues (5) DVT prophylaxis: -TEDs/SCDs as per spine Ortho Thank you for this consultation. We will follow the patient with you during their hospital stay. You can reach a [facility] via pager @ [phone]. Supervising Physician Co-Signing Physician Notes ATTENDING ADDENDUM : pt seen and examined at bedside . care co-ordinated with Marlyn CURRAN 74 yo F s/p anterior cervical surgery recovering well post op minimum post surgical pain , tolerating solid , no complain or discomfort on swallowing no cough , no SOB , no fever or chills Physical Exam : focused Gen : comfortable HEENT :sclera non icteric anterior cervical spine surgery site intact , no swelling , no erythema , pt reports minimum pain with neck movement Lungs: CTA Heart : reguler S1/S2 Neuro ; no focal deficit A/P : Ant cervical spine surgery : cont management as per spine ortho HTN: BP stable continued out patient meds please refer to further documentation by Marlyn CURRAN for discussion of other chronic issues Elaine Bentley MD History of Present Illness Reason for Consultation: Postop medical management Requesting Physician: Dr. Mcfarland Attending Physician: Dr. Bentley History of Present Illness 74-year-old female with PMH HTN, ulcerative colitis s/p ileostomy, PMR on chronic steroids, remote history of DVT, and other problems listed below who is status post C5-C7, C7-T1 ACDF today Dr. Mcfarland. Postoperatively, the patient is doing well. She reports some mild incisional soreness. Denies upper extremity numbness, tingling, weakness. No chest pain or shortness of breath. Reports some intermittent nausea however no vomiting or abdominal pain. Denies lightheadedness and dizziness. Cordero catheter is in place draining clear yellow urine. Allergies Allergy/AdvReac Type Severity Reaction Status Date / Time Penicillins Allergy Severe Hives Verified 04/09/20 06:55 Cipro Allergy Intermediate SEVERE RASH Verified 01/24/14 12:55 ciprofloxacin Allergy Intermediate Rash Verified 04/09/20 06:55 metronidazole [From Flagyl] Allergy Intermediate Rash Verified 04/09/20 06:55 adhesive Allergy Mild Rash Verified 04/09/20 06:55 ondansetron [From Zofran] Allergy Mild Rash Verified 04/09/20 06:55 codeine Allergy Unknown N/V, Verified 04/09/20 06:55 pinpoint pupils infliximab Allergy Unknown Swelling Verified 04/09/20 06:55 of Lip/Tongue/Throat Quinolones Allergy Unknown Unknown Verified 04/09/20 06:55 vancomycin Allergy Unknown Maris Verified 04/09/20 06:55 syndrome baclofen AdvReac Severe Confusion, Verified 04/09/20 06:55 hallucinations tramadol AdvReac Unknown Bradycardia Verified 04/09/20 06:55 NONSTEROIDAL Allergy Unknown Naproxen- Uncoded 04/09/20 06:55 no further details Home Medications Home Medications Medication Instructions Recorded Confirmed Type aspirin 81 mg tablet,delayed 81 mg PO QAM 04/19/19 04/09/20 History release omeprazole magnesium 20 mg 20 mg PO QAM 04/19/19 04/09/20 History tablet,delayed release potassium chloride 10 mEq 10 meq PO 3XWK PRN 04/19/19 04/09/20 History capsule,extended release furosemide [Lasix] 20 mg PO 3XWK 05/08/19 04/09/20 History prednisone 5 mg PO QAM 05/08/19 04/09/20 History rosuvastatin 5 mg PO QAM 05/08/19 04/09/20 History Turmeric Curcumin 1,000 mg PO BID 02/26/20 04/09/20 History acetaminophen [Tylenol] 650 mg PO BID 02/26/20 04/09/20 History ascorbic acid (vitamin C) [Vitamin 1 g PO QAM 02/26/20 04/09/20 History C] mupirocin 1 applic TOPICAL BID PRN 02/26/20 04/09/20 History vitamin B complex 1 tab PO QAM 02/26/20 04/09/20 History fluocinolone 1 applic TOPICAL BID PRN 03/19/20 04/09/20 History losartan 25 mg PO QAM 03/19/20 04/09/20 History amlodipine [Norvasc] 5 mg PO QAM 04/01/20 04/09/20 History Patient History Medical History (Updated 04/09/20 @ 12:22 by MAGDY Tomas) Cerebral aneurysm incidental right DAY TRADER 3mm aneurysm per 02/2020 imaging- under surveillance Cervical pain Cervical radiculopathy Degenerative disc disease Dyslipidemia GERD (gastroesophageal reflux disease) Hearing deficit History of DVT (deep vein thrombosis) 2005 (RLE)- treated with AC + placement GFF (has since been removed) History of nephrolithiasis HTN (hypertension) Ileostomy in place Osteoarthritis Osteoporosis Polymyalgia rheumatica TMJ (temporomandibular joint disorder) Ulcerative colitis Venous insufficiency Surgical History H/O oral surgery History of colectomy History of surgery GFF placement and removal S/P appendectomy S/P colonoscopy S/P dilation and curettage S/P repair of ventral hernia parastomal with placement of biologic mesh S/P tonsillectomy and adenoidectomy S/P tubal ligation Slow to wake up after anesthesia Family History Grandmother (Paternal) Breast cancer Grandmother (Maternal) Colorectal cancer Father Rheumatic heart disease Mother Thyroid cancer Other No family history of adverse response to anesthesia Social History Smoking Status: Former smoker Years Smoked: 25; Smoking End Date: 2002; Second Hand Exposure: No; Do You Dip or Chew Tobacco: No; Tobacco Cessation Education Requested by Patient: No Hx Alcohol Use: Yes Alcohol type: wine and hard liquor Alcohol Intake Frequency Comment: Per epic: "Social" Hx Substance Use: No Preferred Language: Kazakh Communication Ability: Effective Corporate Tax Preparer Required: No Beliefs That Will Affect Care: None marital status: / Current Living Situation: Alone current occupational status: retired Feels Safe at Home: Yes Safety Concerns: Feels Safe At This Time Assistive Devices: Brace/Splint/Immobilizer, Glasses and Oxygen - Continuous Review of Systems Review of Systems: ROS per HPI, all other systems reviewed and negative Physical Exam Constitutional: WD/WN, vitals as above Eyes: PERRL, conjunctivae normal, anicteric sclerae ENMT: external ear and nose normal, oropharynx normal Neck: Anterior neck surgical dressing dry and intact, drain in place draining bloody drainage Respiratory: normal respiratory effort, lungs clear to auscultation Cardiovascular: Rate/Rhythm: regular rate and regular rhythm Vessels: normal peripheral pulses Extremities: no edema Gastrointestinal (Abdomen): normal bowel sounds, soft, nontender, no hepatosplenomegaly Musculoskeletal: no cyanosis or clubbing, extremities motor strength 5/5 Skin: no rashes, warm and dry Neurologic: PERRL, EOMI, accommodation nl, no face palsy, no dysarthria Psychiatric: A+Ox3, euthymic affect Results & Data Results & Data ([facility]) Vital Signs (Past 12 Hours) Vital Signs Temp Pulse Pulse Resp BP BP Pulse Ox 04/09/20 11:59 36.4 C L 69 15 109/65 95 04/09/20 11:29 36.4 C L 68 18 144/75 H 97 04/09/20 11:25 36.4 C L 80 16 144/75 H 95 04/09/20 11:10 51 L 15 121/70 96 04/09/20 11:00 53 L 15 133/62 95 04/09/20 10:50 36.4 C L 55 L 15 132/63 96 04/09/20 10:40 55 L 15 129/67 96 04/09/20 10:30 59 L 15 132/72 95 04/09/20 10:20 79 14 135/80 96 04/09/20 10:10 69 14 134/77 97 04/09/20 10:03 36.2 C L 87 13 136/90 98 04/09/20 07:02 36.6 C 59 L 16 149/73 H 96
--- NOTE | 2020-04-09 13:28 | Fluoroscopy Report ---
INTRAOPERATIVE RADIOGRAPHS CLINICAL HISTORY: C5 C7 spinal fusion. Fluoroscopy time: 16 seconds. FINDINGS: 2 spot fluoroscopic views of the cervical spine are presented. There has been discectomy at C5-C6 and C6-C7 with anterior fusion from C5-T1. The orthopedic hardware appears intact. An endotrac heal tube is in place. IMPRESSION: Intraoperative images from cervical spinal fusion surgery as above. Electronically signed by: Octaviano Padilla M.D. 04/09/2020 1:26 PM
[2020-04-09] MEDS: ceFAZolin 1000MG 1,000 MG/7.5 ML SYR IV SCH (17:27)
[2020-04-09] MEDS: ACETAMINOPHEN 1,000 MG/100 ML VIAL IV PRN (18:11)
[2020-04-09] MEDS ORDERED: DOCUSATE SODIUM/SENNA 50/8.6MG TAB PO SCH (21:00)
[2020-04-10] MEDS: ceFAZolin 1000MG 1,000 MG/7.5 ML SYR IV SCH (00:29)
[2020-04-10] MEDS: ACETAMINOPHEN 1,000 MG/100 ML VIAL IV PRN (03:39)
[2020-04-10 05:57] LABS: Hematocrit (blood only) 36.9 % (37-47); Hemoglobin 12.1 g/dL (12.0-16.0); Mean Corpuscular Hemoglobin 32.6 pg (25-34); Mean Corpuscular Hgb Conc 32.8 g/dL (32-36); Mean Corpuscular Volume 99.5 fL (80-100); Mean Platelet Volume 9.8 fL (7.4-10.4); Platelet Count 260 K/uL (130-400); RDW Coefficient of Variation 14.3 % (11.5-14.5); RDW Standard Deviation 51.3 fL (36.4-46.3); Red Blood Count 3.71 M/uL (4.2-5.4); White Blood Count 11.74 K/uL (4.8-10.8)
[2020-04-10 06:34] LABS: BUN Creatinine Ratio 11.7 (10-20); Calcium 8.6 mg/dl (8.5-10.1); Creatinine Clr Calc Pharmacy 63.8 ml/min; Est GFR (Non-African American) 87.1; Potassium 3.8 mmol/L (3.5-5.1)
--- NOTE | 2020-04-10 08:03 | Hospitalist Progress Note ---
Date of Service April 10, 2020 Assessment & Plan (1) Cervical radiculopathy: - POD#1 C5-C7, C7-T1 ACDF by Dr. Mcfarland Resume Post Op Care per Surgery Protocol Incentive Spirometry 10x per Hour Resume Relative Home Meds Where Appropriate PT/OT with appropriate fall precautions Transition from IV to PO Pain control DVT Prophylaxis Per Surgery Protocol Monitor Daily Labs (2) HTN (hypertension): -BP controlled, continue amlodipine, losartan -Continue Lasix 3 x week for chronic lower extremity edema (3) Polymyalgia rheumatica: -On chronic prednisone 5 mg daily, continue (4) Ulcerative colitis: -S/p ileostomy -No acute issues (5) DVT prophylaxis: labs checked ROS-No Headache, No Visual Changes, No Nausea, No Vomiting, No Fever, No Chills, No Neck Pain or Stiffness, No Chest Pain, No Palpitations, No SOB, No WARD, No Cough, No Sputum, No Wheezing, No Abdominal Pain, No Diarrhea, No Hematemesis, No Hemoptysis, No Unexpected Weight Loss, No Flank pain, No Melena, No Hematochezia, No Frequency, No Urgency, No Burning, No Hematuria, No Rashes, No Diaphoresis. Appetite is Normal, sore neck Physical Exam Gen-AAO x 3, NAD, Afebrile, collar in place Head-NCAT, EOMI, PERRLA, Anicteric Sclera, No Posterior Pharyngeal Erythema Neck-Supple, No JVD, No Thyromegaly, No Masses, No LAD, No Bruits Lungs-Clear to Auscultation Bilaterally, No Rales, No Rhonchi, No Wheezing, No Crepitus Chest-No S4, +S1, +S2, No S3, No Murmurs, No Rubs, No Gallops, No Ectopy Abdomen-Soft, Bowel Sounds Present, Non Tender, Non Distended, No Hepatomegaly, No Splenomegaly, No Palpable Masses, No Rebound, No Rigidity, No Guarding Musculoskeletal-Full Range of Motion Bilaterally, No CVAT Extremities-No Cyanosis, No Clubbing, No Edema Nuero-Cranial Nerves II-XII grossly intact, Motor WNL, DTRs WNL, Strength WNL, Non Focal Psych-Normal Mood Admission and Anticipated Discharge Date Admission Date: April 09, 2020 Results & Data Results & Data ([facility]) Vital Signs (Past 12 Hours) Vital Signs Temp Pulse Pulse Resp BP Pulse Ox Pulse Ox 04/10/20 07:32 75 16 96 04/10/20 06:29 36.7 C 76 12 125/76 96 04/10/20 04:30 36.6 C 81 12 126/79 98 04/10/20 03:20 75 14 97 04/10/20 02:30 36.4 C L 83 12 121/73 97 04/10/20 00:36 36.3 C L 77 16 125/77 98 04/09/20 23:30 98 04/09/20 23:08 76 14 96 04/09/20 23:01 79 16 126/69 96 04/09/20 20:05 76 12 98
[2020-04-10 08:44] VITALS: BP 124/81; TEMP 98.2
[2020-04-10] MEDS: FUROSEMIDE 20 MG TAB PO SCH ×2 (08:51→08:58)
[2020-04-10] MEDS: POTASSIUM CHLORIDE 10 MEQ TABCR PO SCH ×2 (08:52→08:58)
[2020-04-10] MEDS ORDERED: ROSUVASTATIN CALCIUM 5 MG TAB PO SCH (09:00)
[2020-04-10] MEDS ORDERED: ASCORBIC ACID 500 MG TAB PO SCH (09:00)
[2020-04-10] MEDS ORDERED: PANTOprazole 40 MG TAB PO SCH (09:00)
[2020-04-10] MEDS ORDERED: DEXAMETHASONE SOD PHOSPHATE 8 MG in SYRINGE 0 ML IV SCH (09:00)
[2020-04-10] MEDS ORDERED: amLODIPine BESYLATE 5 MG TAB PO SCH (09:00)
[2020-04-10] MEDS ORDERED: LOSARTAN POTASSIUM 25 MG TAB PO SCH (09:00)
[2020-04-10] MEDS ORDERED: ASPIRIN 81 MG ECTAB PO SCH (09:00)
--- NOTE | 2020-04-10 09:25 | Discharge Summary ---
Date of Service April 10, 2020 Admission HPI Per Admitting Provider This is a 74-year-old female presents with chronic persistent neck and arm pain after failing course of nonoperative care is here for surgical invention. Principal Diagnosis Cervical spinal stenosis with radiculopathy Discharge Data Allergies Allergy/AdvReac Type Severity Reaction Status Date / Time Penicillins Allergy Severe Hives Verified 04/09/20 06:55 Cipro Allergy Intermediate SEVERE RASH Verified 01/24/14 12:55 ciprofloxacin Allergy Intermediate Rash Verified 04/09/20 06:55 metronidazole [From Flagyl] Allergy Intermediate Rash Verified 04/09/20 06:55 adhesive Allergy Mild Rash Verified 04/09/20 06:55 ondansetron [From Zofran] Allergy Mild Rash Verified 04/09/20 06:55 codeine Allergy Unknown N/V, Verified 04/09/20 06:55 pinpoint pupils infliximab Allergy Unknown Swelling Verified 04/09/20 06:55 of Lip/Tongue/Throat Quinolones Allergy Unknown Unknown Verified 04/09/20 06:55 vancomycin Allergy Unknown Maris Verified 04/09/20 06:55 syndrome baclofen AdvReac Severe Confusion, Verified 04/09/20 06:55 hallucinations tramadol AdvReac Unknown Bradycardia Verified 04/09/20 06:55 NONSTEROIDAL Allergy Unknown Naproxen- Uncoded 04/09/20 06:55 no further details Consultations 04/09/20 11:29 Consult Case Management - Discharge Planning Routine Consult Hospitalist Routine Procedures Performed Operation Date: 04/09/20 07:45 Actual Procedures p C5-T1 Anterior Cervical Discectomy and Fusion, Placement of Interbodies, Spinal Cord Monitoring - Kota Mcfarland DO Ordered Studies 04/09/20 07:45 FL cervical 2-3V Routine FL fluoroscopy <1hr Routine Hospital Course (1) Cervical radiculopathy: Patient went anterior cervical discectomy fusion tolerated this well 2nd orthopedic for postoperative postop day #1 she was swallowing well. No hoarseness. Excellent strength testing. AURELIANO drain decreasing appropriately. Subsequently discharged home. Discharge orders instructions from the chart for further review. Total Time Total Time Spent Total Time Spent (In Minutes): 20 minutes Discharge Plan Discharge Items Patient Disposition: Home - Self-Care Reason For Visit: Spinal Stenosis, Cervical Region Discharge Diagnosis: Cervical spinal stenosis with radiculopathy Activity: As commented below Non-emergency contact: Primary Care Provider Call non-emergency contact if: you have any medication questions Follow-up/Referrals: Derrick Ruiz DO [Primary Care Provider] - Diet: Regular Addtl Attending Provider Instructions: ACTIVITY RECOMMENDATIONS: SELF CARE INSTRUCTIONS AFTER CERVICAL FUSIONS 1. No smoking. Smoking drastically decreases the chance of a solid fusion. 2. No bending, lifting more than 5 pounds, or twisting (roll like a log when turning in bed). 3. You may shower 3 days after surgery. Thoroughly dry wound. Do not soak in the tub. 4. Cervical collar: Must be worn at all times including sleeping. You may remove the brace only to bath, eat and if you are sitting in a recliner. 5. Please walk as much as you can for exercise. Gradually increase the distance that you walk as your endurance increases. SPECIAL CARE INSTRUCTIONS: VERY IMPORTANT TO READ AND REVIEW A. Do not take any anti-inflammatory medications (i.e. Indocin, Advil, Aspirin, Naprosyn, Aleve, Motrin, etc.) as these may inhibit the chance of a solid fusion. Tylenol is okay to take. B. Your surgical incision has been closed with a cosmetic suture under the skin that will dissolve in about 6 weeks. In 14 days, you can use a pair of clean scissors and cut the suture that is left outside of the skin at the ends of your incision. C. Complications are uncommon, but please contact us if you have any signs or symptoms of: 1. wound infection (fever higher than 102.5 degrees F, redness, separation of wound, drainage, or increasing pain from the incision) 2. blood clots in legs (pain, swelling, redness and warmth in legs) 3. urinary tract infection (fever higher than 102.5 degrees, burning upon urination or increased frequency of urination) 4. nerve problems (inability to walk on your toes or heels, numbness, loss of bowel or bladder control) 5. any other symptoms that concern you. D. Please call the office at if you have any concerns or questions about your operation or recovery. MANAGING PAIN AFTER SPINAL SURGERY 1. Narcotic medication is intended for short-term use and will be provided for surgical pain. Surgical pain usually lasts for a period of 4-6 weeks. Narcotic medication includes Percocet, Vicodin, Darvocet, Tylenol #3 or Lortab. 2. Longer-term pain is more appropriately treated with non-narcotic medication such as Tylenol ES. 3. Muscle spasm is not appropriately treated with narcotics. Muscle relaxers such as Soma, Flexeril or Skelaxin can be used along with Tylenol ES. 4. Remember that we all live with some "aches and pains". This is not unusual or uncommon after an injury or as we get older. 5. We will provide appropriate medication within the normal guidelines of their prescribed use. We will also be very cautious and aware of potential abuse and extended duration of patients' medication needs. 6. Please allow 2-3 days to process refills. Prescriptions will not be mailed but must be picked up at the office. FOLLOW UP VISIT: Keep your scheduled follow-up appointment. Any questions, please call the office at . Pending Studies at Discharge: No Stand-Alone Forms: My [facility] [employer], Smoking Cessation Medications and DC Order Prescriptions: Continued aspirin [Adult Low Dose Aspirin] 81 mg tablet,delayed release (DR/EC) 81 mg PO QAM RF: 0 potassium chloride 10 mEq capsule, extended release 10 meq PO 3XWK PRN (Reason: With Furosemide) RF: 0 Prilosec OTC 20 mg tablet,delayed release (DR/EC) 20 mg PO QAM RF: 0 furosemide [Lasix] 20 mg Tablet 20 mg PO 3XWK RF: 0 prednisone 5 mg Tablet 5 mg PO QAM RF: 0 rosuvastatin 5 mg Tablet 5 mg PO QAM RF: 0 ascorbic acid (vitamin C) [Vitamin C] 1,000 mg Tablet 1 g PO QAM RF: 0 acetaminophen [Tylenol] 325 mg Tablet 650 mg PO BID RF: 0 vitamin B complex Tablet 1 tab PO QAM RF: 0 mupirocin 2 % Ointment 1 applic TOPICAL BID PRN (Reason: ud) RF: 0 Turmeric Curcumin 1,000 mg PO BID RF: 0 losartan 25 mg Tablet 25 mg PO QAM RF: 0 fluocinolone 0.025 % Cream 1 applic TOPICAL BID PRN (Reason: ud) RF: 0 amlodipine [Norvasc] 5 mg Tablet 5 mg PO QAM RF: 0 Discharge Orders: Discharge Order (Routine); Ordered 04/10/20 Ordered By: Kota Mcfarland Admission Data Admit Date/Time: 04/09/20 10:15 Attending Provider: Kota Mcfarland Admit Provider: Kota Mcfarland Primary Care Provider: Derrick Ruiz Other Providers: Jabier Parker
[2020-04-10] MEDS: POLYETHYLENE (MIRALAX) 17 GM PACK PO SCH ×2 (10:29→12:37)
[2020-04-10 11:47] VITALS: O2SAT 98
[2020-04-10 12:40] VITALS: PULSE 76
[2020-04-10] MEDS ORDERED: predniSONE 5 MG TAB PO SCH (14:00)
[2020-04-11] MEDS ORDERED: bisacodyL 10 MG SUPP PR PRN (09:50)
== END 2020-04-10 15:35 | disposition home or self-care (01) | DRG 29 ==
LOC: ASU 06:07 → 3E 10:15